=== PATIENT | male | born 1970 | race Caucasian/White ===

== ENCOUNTER → 2025-01-01 | Outpatient (CLI) | payer OTHER, SELFPAY ==
--- NOTE | 2025-01-01 06:47 | CT_ITS ---
PROCEDURE: LIMITED CHEST CT CARDIAC ONLY 01/01/2025 REASON FOR EXAM: BENIGN ESSENTIAL HYPERTENSION TECHNIQUE: CT performed for coronary artery calcification scoring. One or more dose reduction techniques were used (e.g., Automated exposure control, adjustment of the mA and/or kV according to patient size, use of iterative reconstruction technique). RADIATION DOSE SUMMARY: CTDlvol: 12.19 mGy DLP: 219.42 mGycm COMPARISON: None. CT/Limited Chest CT Cardiac Only IMPRESSION: Limited imaging of the lungs demonstrates no acute process. No pleural effusion or pneumothorax is seen in visualized areas. No adenopathy is noted. The visualized upper abdomen demonstrates no significant abnormality. Reading Location: [place] [id number]
--- OUTSIDE RECORDS SUMMARY | 2025-01-01 06:48 | XMS RPT_ITS | CCD ---
Author Organization [facility] Care Team Providers Care Oncology Research Rn Name Role Phone Ebony Prince Unavailable Mini Romero Unavailable Bahjeana, Ede A Unavailable [phone] Badfelipa, Markell Unavailable Rylee Dillon Unavailable Unavailable Unavailable Unavailable Urmila Butts Unavailable Unavailable Ebony Prince DO Unavailable [phone] Mini Romero MD Unavailable [phone] Bahadur, Ede A Unavailable Baddour, Markell Unavailable Gosia Avendano LPN Unavailable Unavailable Unavailable Unavailable Waleska Markell Unavailable Montserrat Smith MA Unavailable Unavailable Mini Romero MD Unavailable [phone] Ebony Prince Referring Unavailable Ebony Prince Attending Unavailable Ebony Prince Primary Care Unavailable Medications Completed/Discontinued Medications Medication Drug Class(es) Dates Sig (Normalized) Sig (Original) escitalopram 20 mg oral tablet (13 sources) Serotonin Reuptake Inhibitor Start: 01-25-2014 End: 04-05-2016 take 1 tablet by mouth once daily Lexapro 20 MG Oral Tablet 1 (one) Tablet qd for 0 days Quantity: 90 {Tablet} Refills: 3 Ordered: 05-Apr-2016 Carmen Whitney RN Start : 25-Jan-2014 End : 05-Apr-2016 Inactive febuxostat 40 mg oral tablet (13 sources) Xanthine Oxidase Inhibitor Start: 07-30-2014 End: 04-05-2016 take 1 tablet by mouth once daily Uloric 40 MG Oral Tablet 1 (one) Tablet daily for 0 days Quantity: 30 {Tablet} Refills: 5 Ordered: 05-Apr-2016 Carmen Whitney RN Start : 30-Jul-2014 End : 05-Apr-2016 Inactive folic acid 1 mg oral tablet (13 sources) Start: 01-26-2013 End: 04-05-2016 take 1 tablet by mouth once daily Folic Acid 1 MG Oral Tablet 1 Tablet Tablet daily for 0 days Quantity: 30 {Tablet} Refills: 6 Ordered: 05-Apr-2016 Carmen Whitney RN Start : 26-Jan-2013 End : 05-Apr-2016 Inactive lisdexamfetamine dimesylate 60 mg oral capsule (13 sources) Central Nervous System Stimulant Start: 10-11-2014 End: 04-05-2016 take 1 capsule by mouth in the morning Vyvanse 60 MG Oral Capsule 1 Capsule in am for 0 days Quantity: 30 {Capsule} Refills: 0 Ordered: 05-Apr-2016 Carmen Whitney RN Start : 11-Oct-2014 End : 05-Apr-2016 Inactive Comments: thirty Comment on above: thirty metoprolol tartrate 50 mg oral tablet (13 sources) beta-Adrenergic Melyssa Start: 03-11-2014 End: 04-05-2016 take 1 tablet by mouth twice daily Lopressor 50 MG Oral Tablet 1 Tablet Tablet bid for 0 days Quantity: 60 {Tablet} Refills: 6 Ordered: 05-Apr-2016 Carmen Whitney RN Start : 11-Mar-2014 End : 05-Apr-2016 Inactive sildenafil 100 mg oral tablet (9 sources) Phosphodiesterase 5 Inhibitor Start: 03-13-2022 Sildenafil Citrate 100 MG Oral Tablet 1 (one) Tablet 2times per week 30mins prior to sexual activity for 0 days Quantity: 8 {Tablet} Refills: 6 Ordered: 13-Mar-2022 Ebony Prince DO, DO, Kathleen Start : 13-Mar-2022 Active Start: 03-05-2022 Sildenafil Cit rate 100 MG Oral Tablet 1 (one) Tablet 2times per week 30mins prior to sexual activity for 0 days Quantity: 8 {Tablet} Refills: 6 Ordered: 05-Mar-2022 Ebony Prince DO, DO, Kathleen Start : 05-Mar-2022 Active Start: 03-03-2021 Sildenafil Cit rate 100 MG Oral Tablet 1 (one) Tablet 2times per week 30mins prior to sexual activity for 0 days Quantity: 8 {Tablet} Refills: 6 Ordered: 03-Mar-2021 Ebony Prince DO, DO, Kathleen Start : 03-Mar-2021 Active Start: 09-05-2020 Sildenafil Cit rate 100 MG Oral Tablet 1 (one) Tablet 2times per week 30mins prior to sexual activity for 0 days Quantity: 8 {Tablet} Refills: 4 Ordered: 05-Sep-2020 Ebony Prince DO, DO, Kathleen Start : 05-Sep-2020 Active Start: 09-01-2020 Sildenafil Cit rate 100 MG Oral Tablet 1 (one) Tablet 2times per week 30mins prior to sexual activity for 0 days Quantity: 8 {Tablet} Refills: 4 Ordered: 01-Sep-2020 Ebony Prince DO, DO, Kathleen Start : 01-Sep-2020 Active Start: 05-05-2020 Sildenafil Cit rate 100 MG Oral Tablet 1 (one) Tablet 2times per week 30mins prior to sexual activity for 0 days Quantity: 8 {Tablet} Refills: 2 Ordered: 05-May-2020 Urmila Butts LPN Start : 05-May-2020 Active divalproex sodium 500 mg delayed release oral tablet (13 sources) Mood Stabilizer, Anti-epileptic Agent Start: 07-30-2014 End: 04-05-2016 take 1 tablet by mouth in the morning, then take 1 tablet by mouth at lunch, then take 2 tablets by mouth at bedtime Depakote 500 MG Oral Tablet Delayed Release uad Tablet DR 1 in am 1 at lunch 2 hs for 0 days Quantity: 120 {Tablet} Refills: 6 Ordered: 05-Apr-2016 Carmen Whitney RN Start : 30-Jul-2014 End : 05-Apr-2016 Inactive NEGATED: Highlighted row has not occurred!drug or medication (8 sources) No Known Historical Medications NEGATED: Highlighted row has not occurred!No Known Historical Medications (3 sources) No Known Historical Medications Problems Active Problems Problem Classification Problem Date Documented Date Episodic/Chronic Administrative/social admission (7 sources) Patient encounter status; Translations: [Nutritional counseling] 09-01-2020 Episodic Attention-deficit conduct and disruptive behavior disorders (20 sources) Attention deficit hyperactivity disorder, predominantly inattentive type; Translations: [Attention deficit disorder] 04-15-2020 Chronic Comment on above: vyvanse help bu trou ble some sleeing and not notice help as much in am so will do 60 mg once a day.r/t to [facility] Dr. Juarez Blindness and vision defects (15 sources) One eye: profound vision impairment; other eye: vision not specified; Translations: [IMPAIRMENT, ONE EYE PROFOUND, OTHER NOS] 04-15-2020 Chronic Comment on above: sequele from cvarigh t eye r/t CVA Diabetes mellitus without complication (20 sources) Impaired fasting glucose; Translations: [Impaired fasting glycaemia] 04-15-2020 Episodic Disorders of lipid metabolism (20 sources) Mixed hyperlipidemia; Translations: [Hypercholesterolemia] 04-15-2020 Chronic Comment on above: uncontrolled Epilepsy; convulsions (20 sources) Epilepsy, unspecified, without mention of intractable epilepsy; 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 Lowry [facility] post [facility]va/ h/o concus sions from football- and brain injury on imaging- no sz for 15yrs - last sz 2004 -- started in 2002 Epilepsy; convulsions (20 sources) Epilepsy; convulsions Essential hypertension (20 sources) Benign essential hypertension; Translations: [Benign Essential Hypertension] Onset: 5 04-15-2020 Chronic Gout and other crystal arthropathies (20 sources) Gout, unspecified; Translations: [Gout] 04-15-2020 Chronic Comment on above: had bad gout in last year some joit aches uric acid high 9 will lower and see if feel better STABLE Headache; including migraine (13 sources) Headache; Translations: [Headache] 04-15-2020 Episodic Miscellaneous mental health disorders (20 sources) Other signs and symptoms involving emotional state; Translations: [Restless] 04-15-2020 Episodic Comment on above: since stroke none st op movement in legs. does toss through night. had sleep study donesince stroke 2006 and okay. worse need to increae vyvanse Mood disorders (20 sources) Dysthymia; Translations: [Dysthymic] 04-15-2020 Chronic Comment on above: neurological psyche [facility] Dr. Juarez Mood disorders (20 sources) Mood disorders Other and ill-defined cerebrovascular disease (20 sources) Cerebrovascular disease; Translations: [Cerebrovascular disease, unspecified] 04-15-2020 Chronic Comment on above: 2004, ever since the n developed epilepsy, Dr. Lowry [facility]. also see ade patel past 2005, ever since the n developed epilepsy, Dr. Lowry [facility]. also see ade patel pasth/o AVM that causes stroke at such young age Other and ill-defined cerebrovascular disease (15 sources) Other ill-defined cerebrovascular disease; Translations: [DISEASE, CEREBROVASCULAR NEC] 04-15-2020 Chronic Comment on above: narrowing of arterie s through cerebral angiogram Other circulatory disease (17 sources) Elevated blood-pressure reading without diagnosis of hypertension; Translations: [Elevated blood-pressure reading without diagnosis of hypertension] Resolved: 3 02-08-2015 Episodic Comment on above: up again Other circulatory disease (20 sources) History of cerebrovascular accident; Translations: [History of CVA (cerebrovascular accident)] 04-15-2020 Episodic Other ear and sense organ disorders (13 sources) Conductive hearing loss, unspecified; Translations: [LOSS, CONDUCTIVE HEARING NOS] 04-15-2020 Chronic Comment on above: r/t CVA Other liver diseases (20 sources) Elevated liver enzymes level; Translations: [Elevated liver enzymes] 04-15-2020 Episodic Other male genital disorders (20 sources) Impotence; Translations: [Male erectile dysfunction, unspecified] 05-05-2020 Chronic Comment on above: finding out cost of ca++ score to do for screening with early age ED Other nervous system disorders (17 sources) H/O: brain disorder; Translations: [History of epilepsy] 04-15-2020 Episodic Other nutritional; endocrine; and metabolic disorders (20 sources) Obesity; Translations: [Obesity] 04-15-2020 Chronic Comment on above: again talk about tammie ambrocio and diet. Other nutritional; endocrine; and metabolic disorders (20 sources) Body mass index 30+ - obesity; Translations: [BMI 34.0-34.9,adult] 04-15-2020 Chronic Other screening for suspected conditions (not mental disorders or infectious disease) (20 sources) Electrocardiogram abnormal; Translations: [Abnormal EKG] 04-15-2020 Episodic Residual codes; unclassified (20 sources) Sleep disorder; Translations: [Sleep disorder] 04-15-2020 Episodic Comment on above: take vyvanse in am a nd 12 noon. drink caffiene through day until 5 pm will try to cut back to 2 servings befroe lunch. melatonoin and benadryl. Residual codes; unclassified (20 sources) FH: Cardiovascular disease; Translations: [Family history of heart disease in female family member before age 65] 04-15-2020 Episodic Residual codes; unclassified (19 sources) Non-smoker; Translations: [Non-smoker] 09-01-2020 Episodic Unclassified (20 sources) Elevated liver enzymes (790.4) Unclassified (20 sources) Hypercholesteremia (272.0) Unclassified (20 sources) CVA (437.9) Unclassified (20 sources) Unclassified (20 sources) Attention deficit disorder (314.00) Unclassified (20 sources) Restless (799.29) Unclassified (20 sources) Elevated Blood Pressure without diagnosis of Hypertension (796.2) Unclassified (20 sources) Family history of heart disease in female family member before age 65 Unclassified (20 sources) Non-smoker; Translations: [Non-smoker] 04-15-2020 Unclassified (20 sources) BMI 35.0-35.9,adult Unclassified (11 sources) BMI 34.0-34.9,adult Unclassified (11 sources) DISEASE, CEREBROVASCULAR NEC Unclassified (11 sources) Shingles (053.9) Unclassified (11 sources) Family history of heart disease in female family member before age 65 (V17.49) Unclassified (11 sources) Screening status; Translations: [Encounter for screening for malignant neoplasm of prostate (Renamed from Screening for prostate cancer)] 05-05-2020 Unclassified (18 sources) Depression/Anxiety (300.4) Viral infection (15 sources) Herpes zoster; Translations: [Shingles] Resolved: 3 03-22-2015 Episodic Comment on above: 03-17 on left flank Past or Other Problems Problem Classification Problem Date Documented Da te Episodic/Chronic Unclassified (20 sources) Abnormal EKG (794.31) Unclassified (11 sources) BMI 37.0-37.9, adult Unclassified (11 sources) IMPAIRMENT, ONE EYE PROFOUND, OTHER NOS (369.67) Unclassified (5 sources) Patient encounter status; Translations: [Nutritional counseling] 05-13-2020 Results Test Name Value Interpretation Reference Range Facility CBC W/AUTO DIFF WBC (50620)O rdered By: 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 on 03-03-2021 Basophils (Bld) [#/Vol] 0.0 10*3/uL Normal 0.0-0.2 [facility]; [facility] Work Phone: Comment on above: PATIENT WAS FASTINGP ERFORMED BY: [employer] Pudfnx3118 [facility] [id number] BY: [employer] [id number] Basophils/100 WBC (Bld) 1 % Normal [facility]; [facility] Work Phone: Comment on above: PATIENT WAS FASTINGP ERFORMED BY: [employer]6370 [facility] [id number] BY: [employer] [id number] Eosinophils (Bld) [#/Vol] 0.2 10*3/uL Normal 0.0-0.4 [facility]; [facility] Work Phone: Comment on above: PATIENT WAS FASTINGP ERFORMED BY: [employer]6370 [facility] [id number] BY: [employer] [id number] Eosinophils/100 WBC (Bld) 3 % Normal [facility]; [facility] Work Phone: Comment on above: PATIENT WAS FASTINGP ERFORMED BY: [employer] Services[employer]6370 [facility] [id number] BY: [address] [id number] Erythrocyte distribution width (RBC) [Ratio] 12.8 % Normal 11.6-15.4 [facility]; [facility] Work Phone: Comment on above: PATIENT WAS FASTINGP ERFORMED BY: [facility] Cbpojp5633 [facility] [id number] BY: [address] [id number] Hematocrit (Bld) [Volume fraction] 48.8 % Normal 37.5-51.0 [facility]; [facility] Work Phone: Comment on above: PATIENT WAS FASTINGP ERFORMED BY: [facility] Vsxlwu6711 [facility] [id number] BY: [address] [id number] Hemoglobin (Bld) [Mass/Vol] 16.7 g/dL Normal 13.0-17.7 [facility]; [facility] Work Phone: Comment on above: PATIENT WAS FASTINGP ERFORMED BY: [place]Co[place] 4563170 [facility] [id number] BY: [facility] [id number] Immature granulocytes (Bld) [#/Vol] 0.0 10*3/uL Normal 0.0-0.1 [facility]; [facility] Work Phone: Comment on above: PATIENT WAS FASTINGP ERFORMED BY: [facility] Hdweel3323 [facility] [id number] BY: [facility] [id number] Immature granulocytes/100 WBC (Bld) 0 % Normal [facility]; [facility] Work Phone: Comment on above: PATIENT WAS FASTINGP ERFORMED BY: [facility] Zgdrsf0126 [facility] [id number] BY: [facility] [id number] Lymphocytes (Bld) [#/Vol] 1.9 10*3/uL Normal 0.7-3.1 [facility]; [facility] Work Phone: Comment on above: PATIENT WAS FASTINGP ERFORMED BY: [facility] Tccgor9000 [facility] [id number] BY: [address] [id number] Lymphocytes/100 WBC (Bld) 32 % Normal [facility]; [facility] Work Phone: Comment on above: PATIENT WAS FASTINGP ERFORMED BY: [facility] Waeaah1013 [facility] [id number] BY: [address] [id number] MCH (RBC) [Entitic mass] 30.9 pg Normal 26.6-33.0 [facility]; [facility] Work Phone: Comment on above: PATIENT WAS FASTINGP ERFORMED BY: LabCoCommunity Medical CenterWepjqt7146 [facility] [id number] BY: [facility] [id number] MCHC (RBC) [Mass/Vol] 34.2 g/dL Normal 31.5-35.7 [facility]; [facility] Work Phone: Comment on above: PATIENT WAS FASTINGP ERFORMED BY: [facility] Qilfbf8662 [facility] [id number] BY: Lab[address] [id number] MCV (RBC) [Entitic vol] 90 fL Normal 79-97 [facility]; [facility] Work Phone: Comment on above: PATIENT WAS FASTINGP ERFORMED BY: [facility] Itaczw6222 [facility] [id number] BY: [address] [id number] Monocytes (Bld) [#/Vol] 0.5 10*3/uL Normal 0.1-0.9 [facility]; [facility] Work Phone: Comment on above: PATIENT WAS FASTINGP ERFORMED BY: CB [facility] Edcpen3432 [address] [facility] [id number] BY: [facility] [address] [id number] Monocytes/100 WBC (Bld) 8 % Normal [facility]; [facility] Work Phone: Comment on above: PATIENT WAS FASTINGP ERFORMED BY: CB [facility] Kntixq3264 [address] [facility] [id number] BY: [facility] [address] [id number] Neutrophils (Bld) [#/Vol] 3.3 10*3/uL Normal 1.4-7.0 [facility]; [facility] Work Phone: Comment on above: PATIENT WAS FASTINGP ERFORMED BY: CB [facility] Rbrsic9145 [address] [facility] [id number] BY: [facility] [id number] Neutrophils/100 WBC (Bld) 56 % Normal [facility]; [facility] Work Phone: Comment on above: PATIENT WAS FASTINGP ERFORMED BY: CB [facility] Ujdjaq7492 [address] [facility] [id number] BY: [facility] [address] [id number] Platelets (Bld) [#/Vol] 232 10*3/uL Normal 150-450 [facility]; [facility] Work Phone: Comment on above: PATIENT WAS FASTINGP ERFORMED BY: CB [facility] Wawilp8288 [address] [facility] [id number] BY: [facility] [id number] RBC (Bld) [#/Vol] 5.40 10*6/uL Normal 4.14-5.80 [facility]; [facility] Work Phone: Comment on above: PATIENT WAS FASTINGP ERFORMED BY: DONATO [facility] Fnxzze6886 [address] [facility] [place] [id number] BY: LabCoJess[place] [address] [facility] [id number] WBC (Bld) [#/Vol] 5.9 10*3/uL Normal 3.4-10.8 [facility]; [facility] Work Phone: Comment on above: PATIENT WAS FASTINGP ERFORMED BY: CB [facility] Juvpbd3075 [address] [facility] [id number] BY: [facility] [id number] HGB A1C ([id number])Ordered By: S [employer] Tool Maker on 03-03-2021 HbA1c (Bld) [Mass fraction] 5.3 % Normal 4.8-5.6 [facility]; [facility] Work Phone: Comment on above: . Prediabetes: 5.7 - 6.4 Diabetes: >6.4 Glycemic control for adults with diabetes: <7.0 PATIENT WAS FASTINGP ERFORMED BY: DONATO [facility] Qmynls4925 [address] [facility] [id number] BY: KERLINE [facility] [address] [id number] LIPID PANEL ([id number])Ordered B y: 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 on 03-03-2021 Cholesterol [Mass/Vol] 208 mg/dL Abnormal 100-199 [facility] Internal [facility]; [facility] Work Phone: Comment on above: PATIENT WAS FASTINGP ERFORMED BY: DONATO [facility] Qqzaky7389 [facility] [id number] BY: LabWabi [employer]i [employer] [id number] Cholesterol in HDL [Mass/Vol] 39 mg/dL Abnormal [facility]; [facility] Work Phone: Comment on above: PATIENT WAS FASTINGP ERFORMED BY: CB [facility] Jbflek0351 [facility] [id number] BY: [employer] [id number] Triglyceride [Mass/Vol] 131 mg/dL Normal 0-149 [facility]; [facility] Work Phone: Comment on above: PATIENT WAS FASTINGP ERFORMED BY: [facility] Npxtxs8301 [facility] [id number] BY: [facility] [id number] LIPID PANEL (26150) 24 mg/dL Normal 5-40 Compr ensive [facility]; [facility] Work Phone: Comment on above: PATIENT WAS FASTINGP ERFORMED BY: CB [facility] Cgmjef0245 [facility] [id number] BY: LabW[employer]i [employer] [id number] LIPID PANEL (21944) 145 mg/dL Abnormal 0-99 [facility]; [facility] Work Phone: Comment on above: PATIENT WAS FASTINGP ERFORMED BY: [facility] Wqmmyq6703 [facility] [id number] BY: LabWabi Sabi [employer] [id number] LIPID PANEL (96256) 3.7 {ratio} Abnormal 0.0-3.6 [facility]; [facility] Work Phone: Comment on above: LDL/HDL Ratio Men Wo men 1/2 Avg.Risk 1.0 1.5 Avg.Risk 3.6 3.2 2X Avg.Risk 6.2 5.0 3X Avg.Risk 8.0 6.1 PATIENT WAS FASTINGP ERFORMED BY: CB [facility] Uhtzgb6489 [facility] [id number] BY: Lab[address] [id number] METABOLIC PANEL, COMPREHENSI VE ([id number])Ordered By: 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 on 03-03-2021 Albumin [Mass/Vol] 4.4 g/dL Normal 4.0-5.0 Compre hensive [facility]; [facility] Work Phone: Comment on above: PATIENT WAS FASTINGP ERFORMED BY: CB [facility] Iivnob5126 [place] RoadDublin [place] [id number] BY: [facility] [id number] Albumin/Globulin [Mass ratio] 1.9 {ratio} Normal 1.2-2.2 [facility]; [facility] Work Phone: Comment on above: PATIENT WAS FASTINGP ERFORMED BY: CB [facility] Uiehkv8575 [facility]Psych[facility] [id number] BY: [facility] [id number] ALP [Catalytic activity/Vol] 65 U/L Normal 44-121 [facility]; [facility] Work Phone: Comment on above: Please note refere nce interval change PATIENT WAS FASTINGP ERFORMED BY: CB [facility] Zltrde2963 [address] RoadCritical Access Hospitalin [place] [id number] BY: [facility] [id number] ALT [Catalytic activity/Vol] 21 U/L Normal 0-44 [facility]; [facility] Work Phone: Comment on above: PATIENT WAS FASTINGP ERFORMED BY: CB [facility] Uzwpeo6081 [address] [facility] [id number] BY: [facility] [id number] AST [Catalytic activity/Vol] 17 U/L Normal 0-40 [facility]; [facility] Work Phone: Comment on above: PATIENT WAS FASTINGP ERFORMED BY: CB [facility] Pxbjxf7209 [address]ado RoadDublin [place] [id number] BY: Lab[address] [id number] Bilirubin [Mass/Vol] 0.5 mg/dL Normal 0.0-1.2 Comp rehensive [facility]; [facility] Work Phone: Comment on above: PATIENT WAS FASTINGP ERFORMED BY: DONATO [facility] Arhpzd0114 [address] [facility] [id number] BY: [facility] [id number] Calcium [Mass/Vol] 9.6 mg/dL Normal 8.7-10.2 [facility]; [facility] Work Phone: Comment on above: PATIENT WAS FASTINGP ERFORMED BY: DONATO [facility] Ivfkmg0738 [facility] [id number] BY: [facility] [address] [id number] Chloride [Moles/Vol] 104 mmol/L Normal 96-106 [facility] rehensive Internal Medicine; [facility] Work Phone: Comment on above: PATIENT WAS FASTINGP ERFORMED BY: DONATO [facility] Bpjsfn1198 [facility] [id number] BY: [facility] [address] [id number] CO2 [Moles/Vol] 21 mmol/L Normal 20-[address] [facility] Internal [facility]; [facility] Work Phone: Comment on above: PATIENT WAS FASTINGP ERFORMED BY: CB [facility] Cbofph9877 [facility] [id number] BY: [facility] [address] [id number] Creatinine [Mass/Vol] 0.91 mg/dL Normal 0.76-1.27 [facility] prehensive Internal Medicine; [facility] Work Phone: Comment on above: PATIENT WAS FASTINGP ERFORMED BY: CB [facility] Yrogrb0070 [facility] [id number] BY: [facility] [id number] GFR/1.73 sq M.predicted among blacks CKD-EPI (S/P/Bld) [Vol rate/Area] 114 mL/min/1.73 Normal [facility]; [facility] Work Phone: Comment on above: In accordance with recommendations from the NKF-ASN Task force, [facility] is in the process of updating its eGFR calculation to the 2020 CKD-EPI creatinine equation that estimates kidney function without a race variable. PATIENT WAS FASTINGP ERFORMED BY: [address] [id number] BY: [address] [id number] GFR/1.73 sq M.predicted among non-blacks CKD-EPI (S/P/Bld) [Vol rate/Area] 99 mL/min/1.73 Normal [facility]; [facility] Work Phone: Comment on above: PATIENT WAS FASTINGP ERFORMED BY: [address] [id number] BY: [address] [id number] Globulin (S) [Mass/Vol] 2.3 g/dL Normal 1.5-4.5 [facility]; [facility] Work Phone: Comment on above: PATIENT WAS FASTINGP ERFORMED BY: [address] [id number] BY: [address] [id number] Glucose [Mass/Vol] 94 mg/dL Normal 65-99 [facility]; [facility] Work Phone: Comment on above: PATIENT WAS FASTINGP ERFORMED BY: [address] [id number] BY: [address] [id number] Potassium [Moles/Vol] 4.5 mmol/L Normal 3.5-5.2 [facility]; [facility] Work Phone: Comment on above: PATIENT WAS FASTINGP ERFORMED BY: CB [facility] Ixfxak4053 [address] [facility] [id number] BY: [facility] [address] [id number] Protein [Mass/Vol] 6.7 g/dL Normal 6.0-8.5 [facility]; [facility] Work Phone: Comment on above: PATIENT WAS FASTINGP ERFORMED BY: CB [facility] Dufjkt1168 [address] [facility] [id number] BY: [facility] [address] [id number] Sodium [Moles/Vol] 139 mmol/L Normal 134-144 [facility]; [facility] Work Phone: Comment on above: PATIENT WAS FASTINGP ERFORMED BY: DONATO [facility] Hdotap8235 [address] [facility] [id number] BY: [facility] [id number] Urea nitrogen [Mass/Vol] 15 mg/dL Normal 6-24 [facility]; [facility] Work Phone: Comment on above: PATIENT WAS FASTINGP ERFORMED BY: DONATO [facility] Ttmvnf3231 [facility] [id number] BY: [facility] [address] [id number] Urea nitrogen/Creatinine [Mass ratio] 16 mg/mg Normal 9-20 [facility]; [facility] Work Phone: Comment on above: PATIENT WAS FASTINGP ERFORMED BY: CB [facility] Wmxsnh8267 [address] [facility] [id number] BY: Lab[address] [id number] MICROALBUMINOrdered By: Syst em Carbide Tool Maker on 03-03-2021 Albumin DL <= 20 mg/L (U) [Mass/Vol] 3.0 ug/mL Normal [facility]; [facility] Work Phone: Comment on above: PATIENT WAS FASTINGP ERFORMED BY: Bill [employer]cher Ierpya9299 [facility] [id number] BY: [employer] [id number] Albumin/Creatinine (U) [Mass ratio] 3 {mg/g_creat} Normal 0-29 [facility]; [facility] Work Phone: Comment on above: Normal: 0 - 29 Moder ately increased: 30 - 300 Severely increased: >300 PATIENT WAS FASTINGP ERFORMED BY: Thompson [employer]ospacerp Itqmbh4330 [facility] [id number] BY: [employer] [id number] Creatinine (U) [Mass/Vol] 117.6 mg/dL Normal [facility]; [facility] Work Phone: Comment on above: PATIENT WAS FASTINGP ERFORMED BY: ZEturf LabmotionID technologies Oohzjw8724 [facility] [id number] BY: [employer] [id number] TESTOSTERONE FREE (86247)Ord ered By: 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 on 03-03-2021 Testosterone Free [Mass/Vol] 9.2 pg/mL Normal 6.8-21.5 [facility]; [facility] Work Phone: Comment on above: PATIENT WAS FASTINGP ERFORMED BY: [employer] Msvxhm2084 [facility] [id number] BY: [employer] [id number] TESTOSTERONE TOTAL (46219)Or dered By: 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 on 03-03-2021 Testosterone [Mass/Vol] 376 ng/dL Normal 264-916 [facility]; [facility] Work Phone: Comment on above: Adult male reference interval is based on a population ofhealthy nonobese males (BMI <30) between 19 and 39 years old.angela [place].al. JCEM 2017,102;8891-0314. PMID: [id number]. PATIENT WAS FASTINGP ERFORMED BY: CB [facility] Nvdian4718 Mal[address] RoadDublin [place] [id number] BY: [employer] [id number] TSH (25924)Ordered By: [employer] Carbide Tool Maker on 03-03-2021 TSH Qn 1.650 {uIU/mL} Normal 0.450-4.500 Comprehen sive Internal Medicine; [facility] Work Phone: Comment on above: PATIENT WAS FASTINGP ERFORMED BY: DONATO [facility] Zxzrtg3169 Maldonado RoadPsychiatric hospital [id number] BY: [employer] [id number] URINALYSIS, W/ MICRO (74766) Ordered By: 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 on 03-03-2021 Appearance (U) Clear Normal Comprehens harshil Internal Medicine; [facility] Work Phone: Comment on above: PATIENT WAS FASTINGP ERFORMED BY: CB [facility] Depmyk1416 Mal[address] RoadDublin [place] [id number] BY: [employer] [id number] Bilirubin Ql (U) Negative Normal Comprehe nsive Internal Medicine; [facility] Work Phone: Comment on above: PATIENT WAS FASTINGP ERFORMED BY: CB [facility] Nkjhmg6311 Maldonado RoadPsychiatric hospital [id number] BY: Lab[address] [id number] Color (U) Yellow Normal [facility]; [facility] Work Phone: Comment on above: PATIENT WAS FASTINGP ERFORMED BY: CB [facility] Wqlnyo7360 Maldonado RoadDublin [place] [id number] BY: [address] [id number] Glucose Ql (U) Negative Normal Comprehens harshil [facility]; [facility] Work Phone: Comment on above: PATIENT WAS FASTINGP ERFORMED BY: [facility] Mdepoh4804 Maldonado RoadDublin [place] [id number] BY: [address] [id number] Hemoglobin Ql (U) Negative Normal Compreh ensive Internal Medicine; [facility] Work Phone: Comment on above: PATIENT WAS FASTINGP ERFORMED BY: CB [facility] Gxfipl1098 [address] RoadDublin [place] [id number] BY: Lab[address] [id number] Ketones Ql (U) Negative Normal Comprehens harshil [facility]; [facility] Work Phone: Comment on above: PATIENT WAS FASTINGP ERFORMED BY: CB [facility] Ifjnqp1588 [address] RoadDublin [place] [id number] BY: [address] [id number] Leukocyte esterase Test strip Ql (U) Negative Normal [facility]; [facility] Work Phone: Comment on above: PATIENT WAS FASTINGP ERFORMED BY: CB [facility] Ojxkne9952 [address] RoadDublin [place] [id number] BY: [address] [id number] Microscopic observation LM Nom (Urine sed) MICRON Normal [facility]; [facility] Work Phone: Comment on above: Microscopic follows if indicated. PATIENT WAS FASTINGP ERFORMED BY: CB [facility] Lmvwel6677 [address] RoadDublin [place] [id number] BY: [address] [id number] Microscopic observation LM Nom (Urine sed) See below: Normal [facility]; [facility] Work Phone: Comment on above: Microscopic was anna cated and was performed. PATIENT WAS FASTINGP ERFORMED BY: CB [facility] Qftgcy3898 [address] RoadDublin [place] [id number] BY: [facility] [id number] Nitrite Ql (U) Negative Normal Comprehens harshil [facility] Medicine; [facility] Work Phone: Comment on above: PATIENT WAS FASTINGP ERFORMED BY: [facility] Mdqatt7288 [facility] [id number] BY: [address] [id number] pH (U) 6.0 [pH] Normal 5.0-7.5 [facility]; [facility] Work Phone: Comment on above: PATIENT WAS FASTINGP ERFORMED BY: LabWabi Sabi EcofashionconceptGary [place] 4563170 [facility] [id number] BY: [address] [id number] Protein Ql (U) Negative Normal Comprehens harshil [facility]; [facility] Work Phone: Comment on above: PATIENT WAS FASTINGP ERFORMED BY: LabWabi Sabi [employer]ofashionconcept Sywvkx9663 [facility] [id number] BY: [address] [id number] Specific gravity (U) [Rel density] 1.019 1 Normal 1.005-1.030 [facility]; [facility] Work Phone: Comment on above: PATIENT WAS FASTINGP ERFORMED BY: LabFre[facility] Kfmocl1265 [facility] [id number] BY: [employer] [id number] Urobilinogen (U) [Mass/Vol] 0.2 mg/dL Normal 0.2-1.0 [facility]; [facility] Work Phone: Comment on above: PATIENT WAS FASTINGP ERFORMED BY: LabWabi Sabi Ecofashionconcept Bnfhcu6637 [facility] [id number] BY: [address] [id number] HGB A1C (20746)Ordered By: S ystem Carbide Tool Maker on 09-01-2020 HbA1c (Bld) [Mass fraction] 5.2 % Normal 4.8-5.6 [facility]; [facility] Work Phone: Comment on above: . Prediabetes: 5.7 - 6.4 Diabetes: >6.4 Glycemic control for adults with diabetes: <7.0 Test(s) 190955-GAE-X ; 307853-NNQ-D; 455085-Qadedvuedxubr; 213542-Ejrvawlxjvq, Total; 601057-HHU-A (Total); 547745-Yxlwn LDL-P; 682932-TSB Size; 418450-AO-RO Scorewas developed and its performance characteristics determinedby [employer]. It has not been cleared or approved by the Foodand Drug Administration.PATIENT WAS FASTINGPERFORMED BY: [facility] [id number] BY: [employer]ube[employer]70 [facility] LabsPsychiatric hospital [id number] NMR Profile (45404)Ordered B y: 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 on 09-01-2020 Cholesterol [Mass/Vol] 208 mg/dL Abnormal 100-199 [facility]; [facility] Work Phone: Comment on above: Test(s) 730203-QCF-F ; 145698-NUL-M; 124811-Suijykfybdwpy; 196165-Xpllgedkswg, Total; 506441-BUD-I (Total); 905386-Rxhdh LDL-P; 541549-NBT Size; 702699-TR-SQ Scorewas developed and its performance characteristics determinedby [employer]. It has not been cleared or approved by the Foodand Drug Administration.PATIENT WAS FASTINGPERFORMED BY: Ecopolton1447 [facility] [id number] BY: [employer]ube[employer]70 [facility] LabsPsychiatric hospital [id number] Lipoprotein.alpha [Moles/Vol] 26.8 umol/L Abnormal [facility]; [facility] Work Phone: Comment on above: Test(s) 305374-TAX-B ; 484159-CQO-T; 135647-Nklhvlytufnhs; 528351-Ivuzfyhqkwi, Total; 020208-WFA-V (Total); 177438-Vizlk LDL-P; 494355-WWB Size; 892013-YP-WU Scorewas developed and its performance characteristics determinedby LabcoShelf[employer]. It has not been cleared or approved by the Foodand Drug Administration.PATIENT WAS FASTINGPERFORMED BY: BN [facility] Hgxtsyibua3241 [facility] [id number] BY: CB [facility] Adnqzx0775 [facility] [id number] Lipoprotein.beta.subpa rticle [Entitic length] 20.8 nm Normal [facility]; [facility] Work Phone: Comment on above: INTERPRETATIVE INFORMATION PARTICLE CONCENTRATION AND SIZE <--Lower CVD Risk Higher CVD Risk--> LDL AND HDL PARTICLES Percentile in Reference Population HDL-P (total) High 75th 50th 25th Low >34.9 34.9 30.5 26.7 <26.7 . Small LDL-P Low 25th 50th 75th High <117 117 527 839 >839 . LDL Size <-Large (Pattern A)-> <-Small (Pattern B)-> 23.0 20.6 20.5 19.0 Small LDL-P and LDL Size are associated with CVD risk, but not afterLDL-P is taken into account. Test(s) 236218-AKK-Q ; 685902-JTF-F; 314220-Oqdfbanmeevsf; 593060-Pikxmlzqfvr, Total; 976123-ZUJ-S (Total); 067053-Cftlv LDL-P; 636165-HSZ Size; 764385-BF-PE Scorewas developed and its performance characteristics determinedby [employer]. It has not been cleared or approved by the Foodand Drug Administration.PATIENT WAS FASTINGPERFORMED BY: [employer] [address] [id number] BY: [employer] Gzhtsp4789 [facility] LabsPsychiatric hospital [id number] Lipoprotein.beta.subpa rticle [Moles/Vol] 1467 nmol/L Abnormal [facility]; [facility] Work Phone: Comment on above: Low < 1000 Moderate 1000 - 1299 Borderline-High 1300 - 1599 High 1600 - 2000 Very High > 2000 Test(s) 980267-QHH-I ; 513988-YMX-I; 830711-Woacxsrkstgzk; 998176-Kaxjoippnhv, Total; 468019-RTH-L (Total); 910376-Nxuls LDL-P; 621682-COZ Size; 724946-KP-KQ Scorewas developed and its performance characteristics determinedby [employer]. It has not been cleared or approved by the Foodand Drug Administration.PATIENT WAS FASTINGPERFORMED BY: [facility] [address] [id number] BY: [employer] Xhykvt4284 [facility] [id number] Lipoprotein.beta.subpa rticle.small [Moles/Vol] 396 nmol/L Normal [facility]; [facility] Work Phone: Comment on above: Test(s) 271592-QWQ-O ; 714795-PSG-C; 372931-Psguovyfvvlsp; 124317-Fbtalxrsswn, Total; 336126-AOV-V (Total); 748232-Xwiof LDL-P; 281982-DHT Size; 462386-XW-QM Scorewas developed and its performance characteristics determinedby [employer]. It has not been cleared or approved by the Foodand Drug Administration.PATIENT WAS FASTINGPERFORMED BY: Kum[employer] [address] [id number] BY: [employer] [address] [place] [address] [id number] Triglyceride [Mass/Vol] 156 mg/dL Abnormal 0-149 [facility]; [facility] Work Phone: Comment on above: Test(s) 157819-YEQ-K ; 110863-IFU-E; 090205-Uobysilmfzfjt; 343987-Jlexatwqajx, Total; 915027-YHS-U (Total); 754032-Uxizk LDL-P; 804640-IKS Size; 140044-FD-DE Scorewas developed and its performance characteristics determinedby [employer]. It has not been cleared or approved by the Foodand Drug Administration.PATIENT WAS FASTINGPERFORMED BY: Kum[employer] [address] [id number] BY: [employer] Keojfx3840 [facility] [id number] NMR Profile (34590) 143 mg/dL Abnormal 0-99 [facility]; [facility] Work Phone: Comment on above: . Optimal < 100 Abov e optimal 100 - 129 Borderline 130 - 159 High 160 - 189 Very high > 189 . Test(s) 386199-UED-O ; 683623-YZX-C; 923190-Jmaznbtrkdkpu; 072401-Wedddfzfbhi, Total; 546947-XGR-U (Total); 361031-Hrgel LDL-P; 560410-FVO Size; 582819-PI-TZ Scorewas developed and its performance characteristics determinedby [employer]. It has not been cleared or approved by the Foodand Drug Administration.PATIENT WAS FASTINGPERFORMED BY: Kum[employer] [address] [id number] BY: [employer] Waqjob3093 [facility] [id number] NMR Profile (45273) 37 mg/dL Abnormal [facility]; [facility] Work Phone: Comment on above: Test(s) 740065-ZBD-O ; 913072-SXC-A; 838371-Agiqvvdhiveuk; 048027-Ftrhvmqajcn, Total; 465864-VAW-T (Total); 154697-Ydzvf LDL-P; 160790-EVQ Size; 086541-UW-FL Scorewas developed and its performance characteristics determinedby [employer]. It has not been cleared or approved by the Foodand Drug Administration.PATIENT WAS FASTINGPERFORMED BY: [employer] [id number] BY: MediProPharmaGary Ville 4563170 [facility] [id number] CBC with auto diff (02834)Or dered By: 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 on 05-05-2020 Basophils (Bld) [#/Vol] 0.0 {x10E3/uL} Normal 0.0-0.2 [facility]; [facility] Work Phone: Comment on above: Test(s) 664871-DFO-O ; 830348-CBY-W; 229096-Qgugyxqqstbwb; 293078-Wqnkxmjznfc, Total; 377605-RVX-X (Total); 446239-Pnldp LDL-P; 267802-EBV Size; 774005-GF-PU Scorewas developed and its performance characteristics determinedby [employer]. It has not been cleared or approved by the Foodand Drug Administration.PATIENT WAS FASTINGPERFORMED BY: [employer] [address] [id number] BY: MediProPharmaCommunity Medical CenterFoczov5513 [facility] [id number] Basophils (Bld) [#/Vol] 0.0 10*3/uL Normal 0.0-0.2 [facility]; [facility] Work Phone: Comment on above: Test(s) 004013-GAB-M ; 077758-JFA-W; 352458-Dtxoekphmrlba; 237477-Npvqhaweiiz, Total; 390827-FTY-X (Total); 271844-Tvgnc LDL-P; 736174-IPI Size; 163699-BH-UX Scorewas developed and its performance characteristics determinedby [employer]. It has not been cleared or approved by the Foodand Drug Administration.PATIENT WAS FASTINGPERFORMED BY: [employer] [address] [id number] BY: TopTechPhoto6370 [facility] [id number] Basophils/100 WBC (Bld) 0 % Normal [facility]; [facility] Work Phone: Comment on above: Test(s) 617354-GHB-N ; 715453-JVY-F; 991021-Dikuepssquroh; 177575-Noccxipyadt, Total; 786540-YCV-S (Total); 482800-Ipjdg LDL-P; 897928-KHP Size; 804514-AT-TV Scorewas developed and its performance characteristics determinedby [employer]. It has not been cleared or approved by the Foodand Drug Administration.PATIENT WAS FASTINGPERFORMED BY: Kumo [address] [id number] BY: [employer]ubeacon70 [facility]adoH[facility] [id number] Eosinophils (Bld) [#/Vol] 0.2 {x10E3/uL} Normal 0.0-0.4 [facility]; [facility] Work Phone: Comment on above: Test(s) 582081-ZBU-C ; 231801-UWM-P; 889328-Ljzywgrspeuke; 485328-Qctgsledqjn, Total; 474033-FWM-G (Total); 459563-Ejpeb LDL-P; 684765-BXX Size; 942366-ZZ-FY Scorewas developed and its performance characteristics determinedby [employer]. It has not been cleared or approved by the Foodand Drug Administration.PATIENT WAS FASTINGPERFORMED BY: [employer] [id number] BY: Bill [employer]cher Qevqrr7820 [facility] [id number] Eosinophils (Bld) [#/Vol] 0.2 10*3/uL Normal 0.0-0.4 [facility]; [facility] Work Phone: Comment on above: Test(s) 774058-SMC-Z ; 219067-CUH-R; 130575-Yubsdjivffekf; 225320-Vmvqsdjoqhh, Total; 787194-BOU-K (Total); 055104-Jxakd LDL-P; 712234-GGM Size; 017341-NQ-HX Scorewas developed and its performance characteristics determinedby [employer]. It has not been cleared or approved by the Foodand Drug Administration.PATIENT WAS FASTINGPERFORMED BY: Kumo [address] [id number] BY: [employer]ubeacon[address] YardsaleFormerly [facility] [id number] Eosinophils/100 WBC (Bld) 3 % Normal [facility]; [facility] Work Phone: Comment on above: Test(s) 058411-DJO-O ; 197038-DDX-L; 323958-Rtvqewseiuene; 993468-Qphaqznhtqv, Total; 888432-CQF-K (Total); 758916-Hlpot LDL-P; 782508-UNQ Size; 508842-OI-XX Scorewas developed and its performance characteristics determinedby [employer]. It has not been cleared or approved by the Foodand Drug Administration.PATIENT WAS FASTINGPERFORMED BY: Kumo [address] [id number] BY: [employer]ube[employer]70 MedaPhorFormerly [facility] [id number] Erythrocyte distribution width (RBC) [Ratio] 12.5 % Normal 11.6-15.4 [facility]; [facility] Work Phone: Comment on above: Test(s) 568241-DTI-C ; 485698-QTP-Q; 244533-Mvqwteiyretom; 190672-Xgmmipmydsx, Total; 643327-OKI-J (Total); 251122-Ubauj LDL-P; 218054-DYH Size; 752734-SC-SN Scorewas developed and its performance characteristics determinedby [employer]. It has not been cleared or approved by the Foodand Drug Administration.PATIENT WAS FASTINGPERFORMED BY: Kumo [address] [id number] BY: TopTechPhoto6370 MedaPhorFormerly [facility] [id number] Hematocrit (Bld) [Volume fraction] 42.4 % Normal 37.5-51.0 [facility]; [facility] Work Phone: Comment on above: Test(s) 433098-ZGR-N ; 173092-OVS-S; 897814-Ifeoxxmgvjfih; 391672-Gcjjlujxgmb, Total; 948288-JRC-S (Total); 613075-Grbio LDL-P; 969789-KPZ Size; 092901-YQ-ZD Scorewas developed and its performance characteristics determinedby [employer]. It has not been cleared or approved by the Foodand Drug Administration.PATIENT WAS FASTINGPERFORMED BY: Ecopol[address] [id number] BY: Azteq MobileHedrick Medical Center [id number] Hemoglobin (Bld) [Mass/Vol] 14.7 g/dL Normal 13.0-17.7 [facility]; [facility] Work Phone: Comment on above: Test(s) 927333-QFB-X ; 279967-XZW-L; 282868-Hshvvfuurnrwb; 729752-Kodvljzjcag, Total; 260633-GAA-H (Total); 798849-Npzhy LDL-P; 307299-MBA Size; 821025-LW-QC Scorewas developed and its performance characteristics determinedby [employer]. It has not been cleared or approved by the FoodFed Playbook Drug Administration.PATIENT WAS FASTINGPERFORMED BY: Ecopol[address] [id number] BY: TopTechPhoto6370 [facility] [id number] Immature granulocytes (Bld) [#/Vol] 0.0 {x10E3/uL} Normal 0.0-0.1 [facility]; [facility] Work Phone: Comment on above: Test(s) 727044-TYW-F ; 066556-JGW-K; 702168-Zfxpbpzvkugsx; 721958-Xxnrxwhijhb, Total; 518409-NOM-D (Total); 237408-Pcbgj LDL-P; 447007-JBU Size; 799415-FJ-LG Scorewas developed and its performance characteristics determinedby [employer]. It has not been cleared or approved by the Foodand Drug Administration.PATIENT WAS FASTINGPERFORMED BY: [employer] [id number] BY: [employer] Ssdkha9236 [facility] [id number] Immature granulocytes (Bld) [#/Vol] 0.0 10*3/uL Normal 0.0-0.1 [facility]; [facility] Work Phone: Comment on above: Test(s) 545615-AEB-X ; 201275-NEW-G; 636846-Swsibfyubpqip; 492361-Yvjuqiyqfxv, Total; 310989-MDO-Q (Total); 894977-Sdfux LDL-P; 717596-HXG Size; 241296-ST-DF Scorewas developed and its performance characteristics determinedby [employer]. It has not been cleared or approved by the Foodand Drug Administration.PATIENT WAS FASTINGPERFORMED BY: Kumo [address] [id number] BY: Cubeacon70 [facility]adoHed[facility] Center [id number] Immature granulocytes/100 WBC (Bld) 0 % Normal [facility]; [facility] Work Phone: Comment on above: Test(s) 515818-EGU-L ; 579326-HDB-X; 149129-Rruxfhpkkruie; 000755-Xooinxyopej, Total; 990751-POG-K (Total); 310031-Caduh LDL-P; 964562-URR Size; 082802-XE-ZA Scorewas developed and its performance characteristics determinedby [employer]. It has not been cleared or approved by the Foodand Drug Administration.PATIENT WAS FASTINGPERFORMED BY: [employer] [id number] BY: [employer]cher Uhwhvt5079 [facility] [facility] [id number] Lymphocytes (Bld) [#/Vol] 1.5 {x10E3/uL} Normal 0.7-3.1 [facility]; [facility] Work Phone: Comment on above: Test(s) 044909-FNO-Y ; 105740-YGH-L; 778571-Dkuopiejikpxm; 443346-Hiuxauvpxwk, Total; 230696-WXZ-N (Total); 317196-Vbwlq LDL-P; 418896-ATF Size; 879015-RS-CI Scorewas developed and its performance characteristics determinedby [employer]. It has not been cleared or approved by the Foodand Drug Administration.PATIENT WAS FASTINGPERFORMED BY: Kumo [address] [id number] BY: Cubeacon70 MedaPhorFormerly [facility] [id number] Lymphocytes (Bld) [#/Vol] 1.5 10*3/uL Normal 0.7-3.1 [facility]; [facility] Work Phone: Comment on above: Test(s) 347224-WYX-A ; 809809-QZB-J; 887183-Qrpxwgkfvytrf; 447792-Fbtkibgfiqw, Total; 496303-FMU-U (Total); 741663-Uwpux LDL-P; 079295-CGG Size; 804584-KB-AW Scorewas developed and its performance characteristics determinedby [employer]. It has not been cleared or approved by the Food[employer] Drug Administration.PATIENT WAS FASTINGPERFORMED BY: Kumo [address] [id number] BY: TopTechPhoto6370 Maldonado YardsaleFormerly [facility] [id number] Lymphocytes/100 WBC (Bld) 32 % Normal [facility]; [facility] Work Phone: Comment on above: Test(s) 752962-QMR-S ; 277410-HHV-C; 657134-Adqywsaydkwla; 839508-Uezelyxeazq, Total; 281025-BOM-D (Total); 126096-Xoedo LDL-P; 964743-SLN Size; 350530-CK-QX Scorewas developed and its performance characteristics determinedby [employer]. It has not been cleared or approved by the Foodand Drug Administration.PATIENT WAS FASTINGPERFORMED BY: Kumo [address] [id number] BY: [employer] Fvuvhx3640 MaldonadoCarondelet HealthRenewable FundingFormerly [facility] [id number] MCH (RBC) [Entitic mass] 31.5 pg Normal 26.6-33.0 [facility]; [facility] Work Phone: Comment on above: Test(s) 960165-QYW-K ; 501045-QSC-Q; 417318-Tfptnudvzrynv; 242998-Uvvvlgtzezu, Total; 128102-WRF-G (Total); 597490-Shcjz LDL-P; 686993-BEM Size; 028601-YY-LY Scorewas developed and its performance characteristics determinedby [employer]. It has not been cleared or approved by the Foodand Drug Administration.PATIENT WAS FASTINGPERFORMED BY: Kumo [address] [id number] BY: Cubeacon70 [facility] [id number] MCHC (RBC) [Mass/Vol] 34.7 g/dL Normal 31.5-35.7 [facility]; [facility] Work Phone: Comment on above: Test(s) 332364-QKW-D ; 790755-NAO-K; 027187-Yuqapzcgbnczd; 369524-Puioiiemfeq, Total; 030954-NZP-M (Total); 767589-Tspra LDL-P; 445263-VFD Size; 381929-YQ-LI Scorewas developed and its performance characteristics determinedby [employer]. It has not been cleared or approved by the Foodand Drug Administration.PATIENT WAS FASTINGPERFORMED BY: Kumo [address] [id number] BY: MediProPharmaCommunity Medical CenterOftjwn0292 [facility] [id number] MCV (RBC) [Entitic vol] 91 fL Normal 79-97 [facility]; [facility] Work Phone: Comment on above: Test(s) 387906-SFT-L ; 051142-DTE-F; 140558-Jfcqiypzuulfi; 994011-Ijxrshermfg, Total; 594298-JYM-Z (Total); 853324-Pdyrx LDL-P; 072416-BDO Size; 092590-BT-ZX Scorewas developed and its performance characteristics determinedby [employer]. It has not been cleared or approved by the Foodand Drug Administration.PATIENT WAS FASTINGPERFORMED BY: [employer] [id number] BY: [employer] [id number] Monocytes (Bld) [#/Vol] 0.6 {x10E3/uL} Normal 0.1-0.9 [facility]; [facility] Work Phone: Comment on above: Test(s) 244496-RFU-X ; 573702-GNY-T; 884901-Kkfziojrcbzok; 143775-Ibavqdqejpl, Total; 030772-ILK-P (Total); 129244-Dtubt LDL-P; 678728-LZI Size; 272722-OD-QA Scorewas developed and its performance characteristics determinedby [employer]. It has not been cleared or approved by the Foodand Drug Administration.PATIENT WAS FASTINGPERFORMED BY: [employer] [id number] BY: MediProPharmaCommunity Medical CenterQfvcsc5529 [facility] [id number] Monocytes (Bld) [#/Vol] 0.6 10*3/uL Normal 0.1-0.9 [facility]; [facility] Work Phone: Comment on above: Test(s) 655870-PYW-Q ; 661202-VHC-X; 075427-Uxrrzzkhrjhun; 743345-Qdcrvgcjvqv, Total; 884925-CDW-A (Total); 398929-Aoaxd LDL-P; 429232-LLH Size; 910233-YF-XJ Scorewas developed and its performance characteristics determinedby [employer]. It has not been cleared or approved by the Foodand Drug Administration.PATIENT WAS FASTINGPERFORMED BY: Kumo [address] [id number] BY: [employer] Xdbjdj2069 [facility] [id number] Monocytes/100 WBC (Bld) 12 % Normal [facility]; [facility] Work Phone: Comment on above: Test(s) 584483-VNS-J ; 694936-VVD-G; 644373-Acidogqbpydqk; 071163-Owqdghddbqr, Total; 294760-HNF-Y (Total); 258168-Qxjus LDL-P; 989335-AIS Size; 648830-QF-ZL Scorewas developed and its performance characteristics determinedby [employer]. It has not been cleared or approved by the Foodand Drug Administration.PATIENT WAS FASTINGPERFORMED BY: Kumo [address] [id number] BY: Cubeacon70 [facility] [id number] Neutrophils (Bld) [#/Vol] 2.5 {x10E3/uL} Normal 1.4-7.0 [facility]; [facility] Work Phone: Comment on above: Test(s) 005884-EOF-E ; 273111-ZRJ-K; 065790-Mhwmsnyjozlfx; 089460-Rsmjswuoexk, Total; 722628-BGT-B (Total); 716578-Uoyor LDL-P; 506107-WPT Size; 004801-CT-CA Scorewas developed and its performance characteristics determinedby [employer]. It has not been cleared or approved by the Foodand Drug Administration.PATIENT WAS FASTINGPERFORMED BY: Kumo [address] [id number] BY: Thompson AerospaceCommunity Medical CenterBcqfoo9345 [facility] [id number] Neutrophils (Bld) [#/Vol] 2.5 10*3/uL Normal 1.4-7.0 [facility]; [facility] Work Phone: Comment on above: Test(s) 827825-OQY-R ; 267321-ADX-W; 477854-Vxuyvlazpuvwq; 609757-Krtlqwmdpih, Total; 171282-HYQ-X (Total); 964391-Dmfej LDL-P; 680729-XDH Size; 503170-EQ-FU Scorewas developed and its performance characteristics determinedby [employer]. It has not been cleared or approved by the Foodand Drug Administration.PATIENT WAS FASTINGPERFORMED BY: Kumo [address] [id number] BY: Cubeacon70 [facility] [id number] Neutrophils/100 WBC (Bld) 53 % Normal [facility]; [facility] Work Phone: Comment on above: Test(s) 447304-TKS-S ; 634696-GVF-G; 133656-Dwikimbbacyzv; 107807-Ljtspleegso, Total; 416387-CHS-H (Total); 409375-Ynepb LDL-P; 963983-BYX Size; 090665-OT-TL Scorewas developed and its performance characteristics determinedby [employer]. It has not been cleared or approved by the Foodand Drug Administration.PATIENT WAS FASTINGPERFORMED BY: Kumo [address] [id number] BY: TopTechPhoto6370 [facility] [id number] Platelets (Bld) [#/Vol] 254 {x10E3/uL} Normal 150-450 [facility]; [facility] Work Phone: Comment on above: Test(s) 814313-OQN-R ; 580145-UEV-T; 379554-Zwqhkzabeomna; 866674-Zemfqamrqmo, Total; 537912-FFX-P (Total); 276084-Ozzbt LDL-P; 869671-KTB Size; 203350-OO-LH Scorewas developed and its performance characteristics determinedby [employer]. It has not been cleared or approved by the Foodand Drug Administration.PATIENT WAS FASTINGPERFORMED BY: Kumo [address] [id number] BY: Cubeacon70 [facility] [id number] Platelets (Bld) [#/Vol] 254 10*3/uL Normal 150-450 [facility] Internal [facility]; [facility] Work Phone: Comment on above: Test(s) 401119-GAW-P ; 805232-MVG-G; 305730-Qgxyfrbjnrsfd; 273365-Yjfvdorcvnu, Total; 584988-NGQ-R (Total); 224986-Tvvyv LDL-P; 837481-JLT Size; 990999-BG-NZ Scorewas developed and its performance characteristics determinedby [employer]. It has not been cleared or approved by the Foodand Drug Administration.PATIENT WAS FASTINGPERFORMED BY: Ecopol[address] [id number] BY: TopTechPhoto6370 [facility] [id number] RBC (Bld) [#/Vol] 4.66 {x10E6/uL} Normal 4.14-5.80 [facility] Internal [facility]; [facility] Work Phone: Comment on above: Test(s) 818736-AZY-D ; 183715-UMB-G; 185983-Podwhnmyrrrfn; 512712-Kzdtylbxwsf, Total; 574623-AEV-Q (Total); 495610-Wmhiz LDL-P; 326499-ZFB Size; 328891-KJ-NX Scorewas developed and its performance characteristics determinedby [employer]. It has not been cleared or approved by the Foodand Drug Administration.PATIENT WAS FASTINGPERFORMED BY: Kumo [address] [id number] BY: PC Network Serviceslin6370 [facility] [id number] RBC (Bld) [#/Vol] 4.66 10*6/uL Normal 4.14-5.80 [facility] Internal Medicine; [facility] Work Phone: Comment on above: Test(s) 515050-GDK-A ; 632034-XVX-Y; 867735-Vqucbutdiiuka; 839924-Qwhbxrqrdsd, Total; 231692-GZY-Y (Total); 387439-Ugzke LDL-P; 970754-QPL Size; 715680-XW-RA Scorewas developed and its performance characteristics determinedby [employer]. It has not been cleared or approved by the Foodand Drug Administration.PATIENT WAS FASTINGPERFORMED BY: Kumo [address] [id number] BY: MediProPharmaCommunity Medical CenterJwwnse2386 [facility] [id number] WBC (Bld) [#/Vol] 4.8 {x10E3/uL} Normal 3.4-10.8 [facility] Internal [facility]; [facility] Work Phone: Comment on above: Test(s) 135082-ICH-K ; 883793-XFE-E; 672198-Iaclcsprpnulr; 931457-Vorkrrtbbhe, Total; 867075-WYV-O (Total); 373412-Vwjvk LDL-P; 927073-XEV Size; 049988-HB-OL Scorewas developed and its performance characteristics determinedby [employer]. It has not been cleared or approved by the Foodand Drug Administration.PATIENT WAS FASTINGPERFORMED BY: Kumo [address] [id number] BY: [employer] Uaiwos6601 [facility] [id number] WBC (Bld) [#/Vol] 4.8 10*3/uL Normal 3.4-10.8 [facility]; [facility] Work Phone: Comment on above: Test(s) 121414-XMR-I ; 989536-HSY-L; 798006-Zewvhppxzwchn; 276487-Zojupubotpl, Total; 759263-ZVD-G (Total); 023423-Tyywu LDL-P; 058249-NTG Size; 167178-OP-VO Scorewas developed and its performance characteristics determinedby [employer]. It has not been cleared or approved by the Foodand Drug Administration.PATIENT WAS FASTINGPERFORMED BY: Ecopol[address] [id number] BY: TopTechPhoto6370 [facility]ado[facility] [id number] HGB A1C (12131)Ordered By: S ystem Carbide Tool Maker on 05-05-2020 HbA1c (Bld) [Mass fraction] 5.7 % Abnormal 4.8-5.6 [facility]; [facility] Work Phone: Comment on above: . Prediabetes: 5.7 - 6.4 Diabetes: >6.4 Glycemic control for adults with diabetes: <7.0 Test(s) 525119-VXA-L ; 207988-POC-E; 570915-Sgeecpzfvmjar; 041561-Uztnxvaaoqp, Total; 263948-ZMG-Z (Total); 264209-Eknlq LDL-P; 939409-PNQ Size; 223047-AL-YY Scorewas developed and its performance characteristics determinedby [employer]. It has not been cleared or approved by the Foodand Drug Administration.PATIENT WAS FASTINGPERFORMED BY: Ecopol[address] [id number] BY: TopTechPhoto6370 [facility] LabsPsychiatric hospital [id number] METABOLIC PANEL, COMPREHENSI VE (52945)Ordered By: 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 on 05-05-2020 Albumin [Mass/Vol] 4.1 g/dL Normal 4.0-5.0 [facility] Internal Medicine; [facility] Work Phone: Comment on above: Test(s) 401030-TWE-O ; 851679-UID-O; 059041-Nglebvcbrpakc; 799943-Eryojcxlnmi, Total; 732164-UGD-G (Total); 679360-Qbpdd LDL-P; 459726-YRX Size; 990882-NM-UX Scorewas developed and its performance characteristics determinedby [employer]. It has not been cleared or approved by the Foodand Drug Administration.PATIENT WAS FASTINGPERFORMED BY: Ecopol[address] [id number] BY: TopTechPhoto6370 [facility]ado[facility] [id number] Albumin/Globulin [Mass ratio] 1.6 {ratio} Normal 1.2-2.2 [facility]; [facility] Work Phone: Comment on above: Test(s) 071548-PBT-I ; 565704-TEW-R; 498472-Ystrryoiipnxb; 243882-Uaycvgniyfi, Total; 476437-RSV-A (Total); 845364-Gxhye LDL-P; 119744-FWQ Size; 596562-IZ-CB Scorewas developed and its performance characteristics determinedby [employer]. It has not been cleared or approved by the Foodand Drug Administration.PATIENT WAS FASTINGPERFORMED BY: Kumo [address] [id number] BY: QuVISPsychiatric hospital [id number] ALP [Catalytic activity/Vol] 78 [iU]/L Normal 39117 [facility]; [facility] Work Phone: Comment on above: Test(s) 281869-SYV-Y ; 801746-EUL-Q; 563382-Ibuichrqrrawu; 575963-Ahfdkxhrpbv, Total; 404159-RGS-L (Total); 492410-Gzvhu LDL-P; 719959-MCT Size; 426364-HR-GZ Scorewas developed and its performance characteristics determinedby [employer]. It has not been cleared or approved by the Foodand Drug Administration.PATIENT WAS FASTINGPERFORMED BY: Kumo [address] [id number] BY: Cubeacon70 [facility] [id number] ALP [Catalytic activity/Vol] 78 U/L Normal 39-117 [facility]; [facility] Work Phone: Comment on above: Test(s) 954560-GHM-U ; 948121-TXA-O; 551563-Tdrpaseunxjev; 677377-Eovqvebsukx, Total; 998907-NSM-T (Total); 559139-Bnquv LDL-P; 411641-GNB Size; 793798-LK-KC Scorewas developed and its performance characteristics determinedby [employer]. It has not been cleared or approved by the Foodand Drug Administration.PATIENT WAS FASTINGPERFORMED BY: [employer] [id number] BY: MediProPharmaCommunity Medical CenterLdwupm4061 [facility] [id number] ALT [Catalytic activity/Vol] 42 [iU]/L Normal 0-44 [facility]; [facility] Work Phone: Comment on above: Test(s) 071954-IHZ-N ; 637652-JZZ-G; 123514-Xkejiwzlfuycu; 872618-Cjzgadzmadl, Total; 743441-BSM-T (Total); 385876-Wdzcw LDL-P; 178610-PWI Size; 659650-MU-SY Scorewas developed and its performance characteristics determinedby [employer]. It has not been cleared or approved by the Foodand Drug Administration.PATIENT WAS FASTINGPERFORMED BY: [employer] [address] [id number] BY: MediProPharmaCommunity Medical CenterFujoys7687 [facility] [id number] ALT [Catalytic activity/Vol] 42 U/L Normal 0-44 [facility]; [facility] Work Phone: Comment on above: Test(s) 279271-QUW-R ; 581316-MUW-B; 432376-Gjsjrkxsfnqmd; 391662-Vqucbgfpxrr, Total; 770127-BMU-R (Total); 563712-Nhnfg LDL-P; 398218-JAW Size; 956606-NP-KN Scorewas developed and its performance characteristics determinedby [employer]. It has not been cleared or approved by the Foodand Drug Administration.PATIENT WAS FASTINGPERFORMED BY: [employer] [id number] BY: MediProPharmaGary Ville 4563170 [facility] [id number] AST [Catalytic activity/Vol] 26 [iU]/L Normal 0-40 [facility]; [facility] Work Phone: Comment on above: Test(s) 331973-MKK-H ; 924914-DRS-V; 796223-Hgokheozifogq; 866073-Dbsjlzcibll, Total; 483247-KZA-G (Total); 832905-Xltfh LDL-P; 525541-WSP Size; 341034-DQ-BI Scorewas developed and its performance characteristics determinedby [employer]. It has not been cleared or approved by the Foodand Drug Administration.PATIENT WAS FASTINGPERFORMED BY: Kumo [address] [id number] BY: [employer]6370 [facility] [id number] AST [Catalytic activity/Vol] 26 U/L Normal 0-40 [facility]; [facility] Work Phone: Comment on above: Test(s) 181198-HZC-Q ; 375351-GYM-E; 558108-Bnmrrefwwvevq; 967902-Izfliiihlmm, Total; 161032-TBL-M (Total); 265225-Hhnbq LDL-P; 549181-LPR Size; 684277-DY-CC Scorewas developed and its performance characteristics determinedby [employer]. It has not been cleared or approved by the Foodand Drug Administration.PATIENT WAS FASTINGPERFORMED BY: Kumo [address] [id number] BY: [employer] Zkgdof3719 [facility] [id number] Bilirubin [Mass/Vol] 0.3 mg/dL Normal 0.0-1.2 [facility] Internal Medicine; [facility] Work Phone: Comment on above: Test(s) 650264-PFZ-B ; 930303-EFT-F; 507701-Uybcuidpshubc; 789134-Gqnhlgofjud, Total; 734665-PZF-K (Total); 156341-Sacli LDL-P; 105395-SMR Size; 205247-WG-MB Scorewas developed and its performance characteristics determinedby [employer]. It has not been cleared or approved by the Foodand Drug Administration.PATIENT WAS FASTINGPERFORMED BY: Kumo [address] [id number] BY: [employer] Network Serviceslin6370 [facility] [id number] Calcium [Mass/Vol] 8.7 mg/dL Normal 8.7-10.2 [facility] Internal Medicine; [facility] Work Phone: Comment on above: Test(s) 529248-BIV-G ; 287594-ZJQ-M; 063154-Brvkzuommweph; 869993-Gxvezgabaci, Total; 244366-BWB-Z (Total); 259086-Uorgy LDL-P; 604926-TCO Size; 642833-JT-UA Scorewas developed and its performance characteristics determinedby [employer]. It has not been cleared or approved by the Foodand Drug Administration.PATIENT WAS FASTINGPERFORMED BY: Ecopol[address] [id number] BY: TopTechPhoto6370 [facility] [id number] Chloride [Moles/Vol] 108 mmol/L Abnormal 96-106 [facility]; [facility] Work Phone: Comment on above: Test(s) 550854-MAJ-D ; 542582-BKM-J; 256095-Qmkaapdsgmbca; 970936-Ytegmvqoddf, Total; 266014-FYF-F (Total); 211401-Qevyf LDL-P; 627073-EPE Size; 312572-TI-FN Scorewas developed and its performance characteristics determinedby [employer]. It has not been cleared or approved by the Foodand Drug Administration.PATIENT WAS FASTINGPERFORMED BY: Ecopol[address] [id number] BY: [employer] Cmbpfl3537 [facility] [id number] CO2 [Moles/Vol] 22 mmol/L Normal 20-[address] [facility] Internal Medicine; [facility] Work Phone: Comment on above: Test(s) 823282-QEH-I ; 226592-UMM-M; 048006-Zewbenkqkoodk; 965604-Zcyosrnacti, Total; 469606-VFL-B (Total); 477720-Fkxoz LDL-P; 244496-BGH Size; 914233-AN-OR Scorewas developed and its performance characteristics determinedby [employer]. It has not been cleared or approved by the Foodand Drug Administration.PATIENT WAS FASTINGPERFORMED BY: Kumo [address] [id number] BY: Cubeacon70 Maldonado SedicidodiciPsychiatric hospital [id number] Creatinine [Mass/Vol] 0.97 mg/dL Normal 0.76-1.27 [facility] prehensive Internal Medicine; [facility] Work Phone: Comment on above: Test(s) 346925-HVW-L ; 348490-DUJ-K; 143122-Ugzmzaqpazkku; 970976-Xegsrfiwnvz, Total; 540601-NBX-S (Total); 140112-Jgiec LDL-P; 659383-SSP Size; 426418-BW-CD Scorewas developed and its performance characteristics determinedby [employer]. It has not been cleared or approved by the Foodand Drug Administration.PATIENT WAS FASTINGPERFORMED BY: Kumo [address] [id number] BY: Cubeacon70 Maldonado SedicidodiciPsychiatric hospital [id number] GFR/1.73 sq M predicted among blacks CKD-EPI (S/P/Bld) [Vol rate/Area] 106 mL/min/1.73 Normal [facility]; [facility] Work Phone: Comment on above: Test(s) 464107-WBT-N ; 098741-FZY-Y; 590814-Axpwzrukfblvx; 783506-Waeifxnfkpo, Total; 163536-TDF-O (Total); 531916-Msbay LDL-P; 741497-XXF Size; 489620-IH-MI Scorewas developed and its performance characteristics determinedby [employer]. It has not been cleared or approved by the Foodand Drug Administration.PATIENT WAS FASTINGPERFORMED BY: Kumo [address] [id number] BY: Cubeacon70 [facility] [id number] GFR/1.73 sq M predicted among non-blacks CKD-EPI (S/P/Bld) [Vol rate/Area] 92 mL/min/1.73 Normal [facility]; [facility] Work Phone: Comment on above: Test(s) 337008-UCO-G ; 092674-GBJ-S; 710797-Nkszcccxjpqpq; 448208-Deqstdunwqn, Total; 064209-MGY-M (Total); 434314-Oqghh LDL-P; 696677-FKE Size; 817976-ID-TI Scorewas developed and its performance characteristics determinedby [employer]. It has not been cleared or approved by the Foodand Drug Administration.PATIENT WAS FASTINGPERFORMED BY: Ecopol[address] [id number] BY: [employer]6370 [facility] [id number] Globulin (S) [Mass/Vol] 2.6 g/dL Normal 1.5-4.5 [facility]; [facility] Work Phone: Comment on above: Test(s) 686083-OCX-E ; 111163-EXL-P; 376822-Ppxotewkmnkoh; 800400-Gwoushtcmwf, Total; 909714-DIP-U (Total); 593663-Siurp LDL-P; 032586-GJR Size; 195701-CR-SZ Scorewas developed and its performance characteristics determinedby [employer]. It has not been cleared or approved by the Foodand Drug Administration.PATIENT WAS FASTINGPERFORMED BY: Kumo [address] [id number] BY: TopTechPhoto6370 [facility] [id number] Glucose [Mass/Vol] 112 mg/dL Abnormal 65-99 [facility] Internal Medicine; [facility] Work Phone: Comment on above: Test(s) 410069-UFC-S ; 397015-JOD-V; 666710-Jjrxuoxbxrqse; 171591-Ekkqwdjhnoc, Total; 079143-DLH-D (Total); 520939-Swrro LDL-P; 877516-AEG Size; 112043-VL-TC Scorewas developed and its performance characteristics determinedby [employer]. It has not been cleared or approved by the Foodand Drug Administration.PATIENT WAS FASTINGPERFORMED BY: [employer] [id number] BY: [employer] Iklnez0042 [facility] [id number] Potassium [Moles/Vol] 4.8 mmol/L Normal 3.5-5.2 [facility]; [facility] Work Phone: Comment on above: Test(s) 920207-RSG-X ; 296745-NEM-D; 873418-Oxkwjmkufmfgc; 281101-Rwmnjpzyxpb, Total; 824531-MMH-Q (Total); 198295-Rplrc LDL-P; 898397-SGW Size; 021125-NT-AV Scorewas developed and its performance characteristics determinedby [employer]. It has not been cleared or approved by the Foodand Drug Administration.PATIENT WAS FASTINGPERFORMED BY: Kumo [address] [id number] BY: [employer] Umdoiz3019 [facility] [id number] Protein [Mass/Vol] 6.7 g/dL Normal 6.0-8.5 [facility] Internal Medicine; [facility] Work Phone: Comment on above: Test(s) 399980-GSG-R ; 539800-YDJ-K; 724005-Xrlugbljxtund; 792787-Ycljrltfctt, Total; 788127-NVL-H (Total); 937016-Abxzo LDL-P; 928896-DZA Size; 241404-EA-ZQ Scorewas developed and its performance characteristics determinedby [employer]. It has not been cleared or approved by the Foodand Drug Administration.PATIENT WAS FASTINGPERFORMED BY: Kumo [address] [id number] BY: [employer] Eexngv0950 [facility] [id number] Sodium [Moles/Vol] 143 mmol/L Normal 134-144 [facility] Internal Medicine; [facility] Work Phone: Comment on above: Test(s) 743052-ZNO-V ; 878596-OBH-W; 802874-Nbvxjlxktnfvy; 553132-Pkyfzzapryw, Total; 430122-SRA-V (Total); 000828-Obrcq LDL-P; 194371-BXF Size; 696757-NH-EN Scorewas developed and its performance characteristics determinedby [employer]. It has not been cleared or approved by the Foodand Drug Administration.PATIENT WAS FASTINGPERFORMED BY: Kumo [address] [id number] BY: Bill the Butcher Xyuwmm3749 [facility] [id number] Urea nitrogen [Mass/Vol] 11 mg/dL Normal 6-24 [facility]; [facility] Work Phone: Comment on above: Test(s) 132273-MLV-G ; 201226-TIK-I; 383080-Rudoffravpqbz; 223534-Rgymlnaxdoz, Total; 855182-ZJW-D (Total); 972266-Ifcwh LDL-P; 398877-JRI Size; 815741-LL-[place] Scorewas developed and its performance characteristics determinedby [employer]. It has not been cleared or approved by the Foodand Drug Administration.PATIENT WAS FASTINGPERFORMED BY: Kumo [address] [id number] BY: [employer]TechPhoto6370 [facility] [id number] Urea nitrogen/Creatinine [Mass ratio] 11 mg/mg Normal 9-20 [facility]; [facility] Work Phone: Comment on above: Test(s) 791540-GIV-I ; 288587-ZTH-W; 797192-Eupffazqgojos; 677248-Hxmvgaatofj, Total; 901087-YLA-I (Total); 602771-Suxbr LDL-P; 771949-NXY Size; 494246-FB-TM Scorewas developed and its performance characteristics determinedby [employer]. It has not been cleared or approved by the Foodand Drug Administration.PATIENT WAS FASTINGPERFORMED BY: Kumo [address] [id number] BY: DONATO [facility]70 [address] YardsaleFormerly [facility] [id number] MICROALBUMINOrdered By: Syst em Carbide Tool Maker on 05-05-2020 Albumin DL <= 20 mg/L (U) [Mass/Vol] 10.7 ug/mL Normal [facility]; [facility] Work Phone: Comment on above: Test(s) 848328-ONZ-Y ; 490420-KVZ-F; 099074-Hirmfeqyuvdjs; 249083-Snzwhnqchzx, Total; 531869-KYJ-B (Total); 514951-Outju LDL-P; 245142-UIL Size; 213148-VK-LA Scorewas developed and its performance characteristics determinedby [employer]. It has not been cleared or approved by the Foodand Drug Administration.PATIENT WAS FASTINGPERFORMED BY: Kumo [address] [id number] BY: [employer]70 [address] YardsaleFormerly [facility] [id number] Albumin/Creatinine (U) [Mass ratio] 4 {mg/g_creat} Normal 0-29 [facility]; [facility] Work Phone: Comment on above: Normal: 0 - 29 Moder ately increased: 30 - 300 Severely increased: >300 Test(s) 771702-KFR-L ; 311935-XIO-L; 049959-Ahurbgsvxuwar; 706045-Lklofjkhoii, Total; 305613-WPZ-B (Total); 319606-Bhopd LDL-P; 919875-KGP Size; 198690-JN-MX Scorewas developed and its performance characteristics determinedby [employer]. It has not been cleared or approved by the Foodand Drug Administration.PATIENT WAS FASTINGPERFORMED BY: Kumo [address] [id number] BY: Cube[employer]70 [address] SedicidodiciPsychiatric hospital [id number] Creatinine (U) [Mass/Vol] 280.3 mg/dL Normal [facility]; [facility] Work Phone: Comment on above: Test(s) 283120-UOV-K ; 393459-BMJ-K; 010050-Qixexbjmcynxm; 833674-Zyowygceqrf, Total; 921802-YEQ-D (Total); 312676-Hwxox LDL-P; 185602-RJP Size; 340796-WK-IN Scorewas developed and its performance characteristics determinedby [employer]. It has not been cleared or approved by the Foodand Drug Administration.PATIENT WAS FASTINGPERFORMED BY: Ecopol[address] [id number] BY: Cube[employer]70 [facility] LabsPsychiatric hospital [id number] NMR Profile (42253)Ordered B y: 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 on 05-05-2020 Cholesterol [Mass/Vol] 186 mg/dL Normal 100-199 [facility] Internal Medicine; [facility] Work Phone: Comment on above: Test(s) 097375-FLD-H ; 852375-FES-Q; 040282-Lbployadkkyub; 187052-Xvqeovuqjml, Total; 100952-MOV-I (Total); 706018-Ewohp LDL-P; 633183-IIG Size; 005629-ZV-YZ Scorewas developed and its performance characteristics determinedby [employer]. It has not been cleared or approved by the Foodand Drug Administration.PATIENT WAS FASTINGPERFORMED BY: Ecopol[address] [id number] BY: TopTechPhoto6370 [facility] [id number] Lipoprotein.alpha [Moles/Vol] 21.7 umol/L Abnormal [facility]; [facility] Work Phone: Comment on above: Test(s) 332445-ZYB-N ; 634495-CXY-O; 149791-Vpebgfxyrehoq; 395526-Ranobycrkvf, Total; 713578-ENX-M (Total); 449530-Pzpif LDL-P; 448378-TOC Size; 842663-NS-JW Scorewas developed and its performance characteristics determinedby [employer]. It has not been cleared or approved by the Foodand Drug Administration.PATIENT WAS FASTINGPERFORMED BY: [employer] [address] [id number] BY: [employer] Lbikdk0685 Erica [facility] [id number] Lipoprotein.beta.subpa rticle [Entitic length] 20.9 nm Normal [facility]; [facility] Work Phone: Comment on above: INTERPRETATIVE INFORMATION PARTICLE CONCENTRATION AND SIZE <--Lower CVD Risk Higher CVD Risk--> LDL AND HDL PARTICLES Percentile in Reference Population HDL-P (total) High 75th 50th 25th Low >34.9 34.9 30.5 26.7 <26.7 . Small LDL-P Low 25th 50th 75th High <117 117 527 839 >839 . LDL Size <-Large (Pattern A)-> <-Small (Pattern B)-> 23.0 20.6 20.5 19.0 Small LDL-P and LDL Size are associated with CVD risk, but not afterLDL-P is taken into account. Test(s) 038618-IVP-I ; 262276-ODL-E; 637217-Hnfeqvwpnxwnt; 294978-Unuwawhfrrb, Total; 587614-IZM-Z (Total); 463343-Jfsnw LDL-P; 315367-DJH Size; 473565-EI-OU Scorewas developed and its performance characteristics determinedby [employer]. It has not been cleared or approved by the Foodand Drug Administration.PATIENT WAS FASTINGPERFORMED BY: [employer] [address] [id number] BY: TopTechPhoto6370 [facility] [id number] Lipoprotein.beta.subpa rticle [Moles/Vol] 1709 nmol/L Abnormal [facility]; [facility] Work Phone: Comment on above: Low < 1000 Moderate 1000 - 1299 Borderline-High 1300 - 1599 High 1600 - 2000 Very High > 2000 Test(s) 620150-XOI-Q ; 240482-OMY-I; 850734-Mipjcdzfzjtdi; 891403-Fqjmvjmfydl, Total; 216406-KWX-P (Total); 054013-Sqllv LDL-P; 331542-MAX Size; 356805-TK-MV Scorewas developed and its performance characteristics determinedby [employer]. It has not been cleared or approved by the Foodand Drug Administration.PATIENT WAS FASTINGPERFORMED BY: Kumo [address] [id number] BY: TopTechPhoto6370 [facility] [id number] Lipoprotein.beta.subpa rticle.small [Moles/Vol] 843 nmol/L Abnormal [facility]; [facility] Work Phone: Comment on above: Test(s) 905450-FDN-O ; 269625-JXB-Z; 810942-Mdcxkupfjrrtl; 007177-Vsgrnqqsbhs, Total; 692498-QQJ-F (Total); 216818-Yuusf LDL-P; 686498-SOW Size; 949924-PK-MC Scorewas developed and its performance characteristics determinedby [employer]. It has not been cleared or approved by the Foodand Drug Administration.PATIENT WAS FASTINGPERFORMED BY: Kumo [address] [id number] BY: TopTechPhoto6370 [facility] [id number] Triglyceride [Mass/Vol] 138 mg/dL Normal 0-149 [facility]; [facility] Work Phone: Comment on above: Test(s) 492583-RAB-X ; 330379-OYI-O; 760814-Nilcmfyuoykqd; 144170-Qehexfywykz, Total; 559070-JAJ-A (Total); 295845-Rnbss LDL-P; 933036-RPA Size; 252520-JG-DM Scorewas developed and its performance characteristics determinedby [employer]. It has not been cleared or approved by the Foodand Drug Administration.PATIENT WAS FASTINGPERFORMED BY: [employer] [id number] BY: [employer] [id number] NMR Profile (65536) 132 mg/dL Abnormal 0-99 [facility]; [facility] Work Phone: Comment on above: . Optimal < 100 Abov e optimal 100 - 129 Borderline 130 - 159 High 160 - 189 Very high > 189 . Test(s) 845791-LVA-O ; 855581-XYC-O; 582201-Qjxxvuhouhwyu; 025055-Ladxtrguqtu, Total; 155601-IDS-I (Total); 189474-Techt LDL-P; 860716-HXZ Size; 501052-PH-DP Scorewas developed and its performance characteristics determinedby [employer]. It has not been cleared or approved by the Foodand Drug Administration.PATIENT WAS FASTINGPERFORMED BY: Kumo [address] [id number] BY: Thompson AerospaceChinle Comprehensive Health Care FacilityRbsugl2112 [facility] [id number] NMR Profile (81381) 29 mg/dL Abnormal Compr [facility] Internal Medicine; [facility] Work Phone: Comment on above: Test(s) 463319-YNR-B ; 757122-UYH-F; 092080-Sjhkqvctpkgzw; 792900-Vakymwvclph, Total; 311890-WTI-V (Total); 168038-Zraoy LDL-P; 250616-ARE Size; 152769-AS-BQ Scorewas developed and its performance characteristics determinedby [employer]. It has not been cleared or approved by the Foodand Drug Administration.PATIENT WAS FASTINGPERFORMED BY: [employer] [id number] BY: [facility]6370 [facility] [id number] PSA (PROSTATE SPECIFIC ANTIG EN) (V76.44)Ordered By: 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 on 05-05-2020 Prostate specific Ag [Mass/Vol] 0.2 ng/mL Normal 0.0-4.0 [facility]; [facility] Work Phone: Comment on above: Saida ECLIA methodol ogy. .According to the [place] [employer], Serum PSA shoulddecrease and remain at undetectable levels after radicalprostatectomy. The AUA defines biochemical recurrence as an initialPSA value 0.2 ng/mL or greater followed by a subsequent confirmatoryPSA value 0.2 ng/mL or greater.Values obtained with different assay methods or kits cannot be usedinterchangeably. Results cannot be interpreted as absolute evidenceof the presence or absence of malignant disease. Test(s) 779014-ZQG-G ; 108485-BWZ-O; 394249-Skyqffkzcihnk; 889445-Ndzrmmgpuge, Total; 983968-WAS-W (Total); 949717-Avczp LDL-P; 768553-RUJ Size; 608017-TL-PY Scorewas developed and its performance characteristics determinedby [employer]. It has not been cleared or approved by the Foodand Drug Administration.PATIENT WAS FASTINGPERFORMED BY: [employer] [id number] BY: DONATO [facility] HospitalWabi Sabi EcofashionconceptCommunity Medical CenterRjtjmy9660 [facility] [id number] TESTOSTERONE FREE (00049)Ord ered By: 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 on 05-05-2020 Testosterone Free [Mass/Vol] 7.9 pg/mL Normal 6.8-21.5 [facility]; [facility] Work Phone: Comment on above: Test(s) 490219-OPK-N ; 522883-PLE-I; 521880-Spiifdrrbujlr; 987642-Mmjacetiuvi, Total; 362138-HLU-A (Total); 937926-Xzrdx LDL-P; 101923-XXQ Size; 287770-NG-HJ Scorewas developed and its performance characteristics determinedby [employer]. It has not been cleared or approved by the Foodand Drug Administration.PATIENT WAS FASTINGPERFORMED BY: [employer] [address] [id number] BY: [employer] Wycbjc1491 [facility] [id number] TESTOSTERONE TOTAL (85212)Or dered By: 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 on 05-05-2020 Testosterone [Mass/Vol] 423 ng/dL Normal 264-916 [facility]; [facility] Work Phone: Comment on above: Adult male reference interval is based on a population ofhealthy nonobese males (BMI <30) between 19 and 39 years old.Akosua et.al. JCEM 2017,102;2364-1970. PMID: 77979529. Test(s) 714428-AGO-Z ; 779629-FLD-V; 571409-Cyikbumboizgj; 014029-Vwwmqibfomd, Total; 752869-BFO-L (Total); 403378-Uoene LDL-P; 534271-TIL Size; 053213-QY-YB Scorewas developed and its performance characteristics determinedby [employer]. It has not been cleared or approved by the Foodand Drug Administration.PATIENT WAS FASTINGPERFORMED BY: Kumo [address] [id number] BY: [employer] Bprvvg5120 [facility] [id number] TSH (THYROID STIMULATING HOR ZULEIKA) (00330)Ordered By: 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 on 05-05-2020 TSH Qn 1.010 {uIU/mL} Normal 0.450-4.[address] [facility] Internal Medicine; [facility] Work Phone: Comment on above: Test(s) 023534-IBZ-D ; 030694-WAA-O; 612928-Skgoqsiexinlx; 774952-Phncahvzzez, Total; 094608-QBX-A (Total); 895400-Bcfau LDL-P; 283737-MDA Size; 740775-PJ-QY Scorewas developed and its performance characteristics determinedby [employer]. It has not been cleared or approved by the Foodand Drug Administration.PATIENT WAS FASTINGPERFORMED BY: [employer] [id number] BY: Thompson AerospaceChinle Comprehensive Health Care FacilityGnneyd3627 [facility] [id number] URINALYSIS, W/ MICRO (12559) Ordered By: 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 on 05-05-2020 Appearance (U) Clear Normal Comprehens harshil Internal Medicine; [facility] Work Phone: Comment on above: Test(s) 387918-AUO-G ; 615640-RRJ-M; 656339-Bvjihlpgcvptv; 577805-Fdsyyhkbmpy, Total; 201508-KVN-Q (Total); 250522-Ujpyf LDL-P; 563063-CIB Size; 565786-NN-ON Scorewas developed and its performance characteristics determinedby [employer]. It has not been cleared or approved by the Foodand Drug Administration.PATIENT WAS FASTINGPERFORMED BY: Ecopol[address] [id number] BY: [employer]6370 [facility] [id number] Bilirubin Ql (U) Negative Normal Comprehe nsive Internal Medicine; [facility] Work Phone: Comment on above: Test(s) 792684-SGW-O ; 069004-UDI-Y; 948639-Dasavvoblazrn; 148767-Wnvdrovyzxw, Total; 866637-UVF-R (Total); 609850-Nqvun LDL-P; 937973-DYI Size; 932208-MC-YR Scorewas developed and its performance characteristics determinedby [employer]. It has not been cleared or approved by the Foodand Drug Administration.PATIENT WAS FASTINGPERFORMED BY: Ecopol[address] [id number] BY: [employer] Network Serviceslin6370 [facility] [id number] Bilirubin Ql (U) Negative Normal Comprehe nsive Internal Medicine; [facility] Work Phone: Comment on above: Test(s) 148701-XMT-X ; 291025-FPA-R; 725251-Nofiyxtiezjrc; 125761-Kpvudtpniah, Total; 484438-VFU-B (Total); 712055-Fnyor LDL-P; 191007-OEO Size; 881935-WK-VH Scorewas developed and its performance characteristics determinedby [employer]. It has not been cleared or approved by the Foodand Drug Administration.PATIENT WAS FASTINGPERFORMED BY: Kumo [address] [id number] BY: Azteq MobileHedrick Medical Center [id number] Color (U) Yellow Normal [facility]; [facility] Work Phone: Comment on above: Test(s) 941100-ITN-L ; 437969-EZL-K; 952403-Goixfkjhflwgj; 267167-Opqktlgmztj, Total; 909164-UUG-S (Total); 002203-Bgjvm LDL-P; 266719-KXO Size; 679267-CQ-RH Scorewas developed and its performance characteristics determinedby [employer]. It has not been cleared or approved by the Foodand Drug Administration.PATIENT WAS FASTINGPERFORMED BY: Ecopol[address] [id number] BY: Cubeacon70 [facility] [id number] Glucose Ql (U) Negative Normal [facility] Internal Medicine; [facility] Work Phone: Comment on above: Test(s) 450985-YLA-O ; 816421-PLG-R; 551364-Xaneualwwfrbe; 078969-Avfklvmrqij, Total; 979270-XBM-V (Total); 807837-Fxpuy LDL-P; 144542-YET Size; 425109-IW-WJ Scorewas developed and its performance characteristics determinedby [employer]. It has not been cleared or approved by the Foodand Drug Administration.PATIENT WAS FASTINGPERFORMED BY: Ecopol[address] [id number] BY: Cubeacon70 [address] YardsaleFormerly [facility] [id number] Glucose Ql (U) Negative Normal Comprehens harshil Internal Medicine; [facility] Work Phone: Comment on above: Test(s) 718934-FSR-J ; 313797-MHR-W; 884069-Bwwffruhldhfk; 222799-Hadlmbtbifk, Total; 287729-PII-I (Total); 956760-Bfbhd LDL-P; 034554-DRA Size; 093203-TW-HY Scorewas developed and its performance characteristics determinedby [employer]. It has not been cleared or approved by the Foodand Drug Administration.PATIENT WAS FASTINGPERFORMED BY: Kumo [address] [id number] BY: Bill the Butcher Tmzstr9101 [facility] [id number] Hemoglobin Ql (U) Negative Normal Compreh ensive Internal Medicine; [facility] Work Phone: Comment on above: Test(s) 962278-ZEU-C ; 077417-IEC-R; 675437-Jpeqyemoeeshc; 841004-Eiqckquulez, Total; 240147-IXU-V (Total); 614409-Epgmi LDL-P; 458397-QZW Size; 302184-PH-NA Scorewas developed and its performance characteristics determinedby [employer]. It has not been cleared or approved by the Foodand Drug Administration.PATIENT WAS FASTINGPERFORMED BY: Kumo [address] [id number] BY: Bill the Butcher Yxbsqn9121 [facility] [id number] Hemoglobin Ql (U) Negative Normal Compreh ensive Internal Medicine; [facility] Work Phone: Comment on above: Test(s) 287881-OBB-S ; 848243-HBL-U; 316896-Kwjoospzowuxc; 214910-Vaqaurngkyg, Total; 560421-AID-M (Total); 194649-Nkhmv LDL-P; 682370-DHS Size; 580453-HS-QP Scorewas developed and its performance characteristics determinedby [employer]. It has not been cleared or approved by the Foodand Drug Administration.PATIENT WAS FASTINGPERFORMED BY: Kumo [address] [id number] BY: [employer] Pzzxgn5873 [facility] [id number] Ketones Ql (U) Trace Abnormal Comprehens harshil Internal Medicine; [facility] Work Phone: Comment on above: Test(s) 809580-NXR-H ; 410438-ULF-U; 391626-Pquoffodktdcw; 542070-Aeyttqfaolp, Total; 420285-FHU-W (Total); 803095-Lwiru LDL-P; 718753-VLH Size; 154817-FR-HA Scorewas developed and its performance characteristics determinedby [employer]. It has not been cleared or approved by the Foodand Drug Administration.PATIENT WAS FASTINGPERFORMED BY: Kumo [address] [id number] BY: [employer]ube[employer]70 [address] SedicidodiciPsychiatric hospital [id number] Leukocyte esterase Test strip Ql (U) Negative Normal [facility]; [facility] Work Phone: Comment on above: Test(s) 346730-ROB-T ; 297792-AEA-S; 414497-Abzfnxwncjgjx; 685486-Ydlndfggsua, Total; 510740-ZUA-L (Total); 971682-Effui LDL-P; 407841-DBI Size; 921037-UK-US Scorewas developed and its performance characteristics determinedby [employer]. It has not been cleared or approved by the Foodand Drug Administration.PATIENT WAS FASTINGPERFORMED BY: [employer] [id number] BY: Thompson AerospaceCommunity Medical CenterHtkyrc3940 [facility] [id number] Leukocyte esterase Test strip Ql (U) Negative Normal [facility]; [facility] Work Phone: Comment on above: Test(s) 214894-WBW-T ; 526373-JEM-O; 888295-Cxcgqwwnflipb; 005500-Zsdlpesbgna, Total; 739971-IEL-Q (Total); 555490-Elvnb LDL-P; 145120-OEI Size; 878213-DW-FK Scorewas developed and its performance characteristics determinedby [employer]. It has not been cleared or approved by the Foodand Drug Administration.PATIENT WAS FASTINGPERFORMED BY: Kumo [address] [id number] BY: [employer] Bfbrku0932 MedaPhorFormerly [facility] [id number] Microscopic observation LM Nom (Urine sed) MICRON Normal [facility]; [facility] Work Phone: Comment on above: Microscopic follows if indicated. Test(s) 121117-XYG-B ; 722516-LHG-V; 358176-Ojksbdhohgwdi; 463407-Rgqmccfbsqo, Total; 797115-RZP-W (Total); 460597-Ypxtg LDL-P; 637978-WAW Size; 045769-IO-VS Scorewas developed and its performance characteristics determinedby [employer]. It has not been cleared or approved by the Foodand Drug Administration.PATIENT WAS FASTINGPERFORMED BY: Kumo [address] [id number] BY: [employer]ubeacon70 MedaPhorFormerly [facility] [id number] Microscopic observation LM Nom (Urine sed) See below: Normal [facility]; [facility] Work Phone: Comment on above: Microscopic was anna cated and was performed. Test(s) 608935-NTK-N ; 436193-CSD-R; 395862-Alyqatvnfelgc; 430681-Pzbpzmsncus, Total; 280044-BOC-W (Total); 580027-Maolk LDL-P; 397434-TUL Size; 690049-KK-UW Scorewas developed and its performance characteristics determinedby [employer]. It has not been cleared or approved by the Foodand Drug Administration.PATIENT WAS FASTINGPERFORMED BY: Kumo [address] [id number] BY: [employer] Serviceslin6370 [facility] LabsPsychiatric hospital [id number] Nitrite Ql (U) Negative Normal Comprehens harshil Internal Medicine; [facility] Work Phone: Comment on above: Test(s) 653992-KDC-L ; 085291-NXP-O; 364241-Qexgrobtypang; 986277-Tzjdzhehcyn, Total; 682565-TVX-X (Total); 995424-Swrbx LDL-P; 520539-AGO Size; 912412-NQ-XB Scorewas developed and its performance characteristics determinedby [employer]. It has not been cleared or approved by the Foodand Drug Administration.PATIENT WAS FASTINGPERFORMED BY: Kumo [address] [id number] BY: Bill [employer] Butcher Ysixav1757 [facility] [id number] Nitrite Ql (U) Negative Normal [facility] Internal [facility]; [facility] Work Phone: Comment on above: Test(s) 753152-EWI-X ; 149406-DOL-L; 715759-Tenvlodaxvqip; 614532-Gnjavlrwvsa, Total; 252716-TPK-F (Total); 505575-Zmqqk LDL-P; 400845-XAG Size; 487033-QJ-UP Scorewas developed and its performance characteristics determinedby [employer]. It has not been cleared or approved by the Foodand Drug Administration.PATIENT WAS FASTINGPERFORMED BY: Kumo Chfjchrysq7249 [facility] [id number] BY: [employer]cher Zlvsbc6475 [facility] [id number] pH (U) 6.0 [pH] Normal 5.0-7.5 [facility]; [facility] Work Phone: Comment on above: Test(s) 480976-BVQ-Y ; 567219-OVP-T; 030948-Aikjluyuixrhl; 371287-Kcniscotitf, Total; 173888-XTB-W (Total); 956513-Qrloi LDL-P; 940039-VUV Size; 785040-PM-SD Scorewas developed and its performance characteristics determinedby [employer]. It has not been cleared or approved by the Foodand Drug Administration.PATIENT WAS FASTINGPERFORMED BY: Kumo [address] [id number] BY: [employer]6370 [facility] [id number] Protein Ql (U) Trace Normal Comprehens harshil Internal Medicine; [facility] Work Phone: Comment on above: Test(s) 702150-XDM-M ; 921028-HNY-I; 058175-Foaohvckmtwlh; 765269-Tzxsthmpfna, Total; 717006-BJS-A (Total); 581850-Ascuj LDL-P; 419493-JBQ Size; 483342-TJ-CW Scorewas developed and its performance characteristics determinedby [employer]. It has not been cleared or approved by the Foodand Drug Administration.PATIENT WAS FASTINGPERFORMED BY: Kumo [address] [id number] BY: [employer]6370 [facility] [id number] Specific gravity (U) [Rel density] 1.027 1 Normal 1.005-1.030 [facility]; [facility] Work Phone: Comment on above: Test(s) 298535-LVE-Y ; 549561-TOF-C; 670075-Pxqeexbxlukue; 867756-Avyqndmwvzn, Total; 390335-ZQC-G (Total); 490815-Dybyf LDL-P; 682061-YRL Size; 081041-TR-FJ Scorewas developed and its performance characteristics determinedby [employer]. It has not been cleared or approved by the Foodand Drug Administration.PATIENT WAS FASTINGPERFORMED BY: Kumo [address] [id number] BY: [employer] Serviceslin6370 [facility] [id number] Urobilinogen (U) [Mass/Vol] 1.0 mg/dL Normal 0.2-1.0 [facility]; [facility] Work Phone: Comment on above: Test(s) 825988-MGD-A ; 298088-UVK-G; 991595-Qwrqqmyjddxzw; 240605-Xcvwycyvisn, Total; 149489-JSB-Y (Total); 063956-Owtng LDL-P; 231513-XLQ Size; 182636-QM-QG Scorewas developed and its performance characteristics determinedby [employer]. It has not been cleared or approved by the Foodand Drug Administration.PATIENT WAS FASTINGPERFORMED BY: [facility] [address] [id number] BY: Cubeacon70 MedaPhorFormerly [facility] [id number] Urobilinogen Test strip (U) [Mass/Vol] 1.0 mg/dL Normal 0.2-1.0 Comprehensi Internal Medicine; [facility] Work Phone: Comment on above: Test(s) 794254-MWB-J ; 470077-SCH-B; 818181-Brjemqccsgmqu; 175548-Gapaxprexby, Total; 007192-JLE-S (Total); 405111-Uremu LDL-P; 200117-GGW Size; 217805-ZJ-GA Scorewas developed and its performance characteristics determinedby [employer]. It has not been cleared or approved by the Foodand Drug Administration.PATIENT WAS FASTINGPERFORMED BY: Kumo [address] [id number] BY: TopTechPhoto6370 MedaPhorFormerly [facility] [id number] CBC W/AUTO DIFF WBC (19162)O rdered By: 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 on 07-27-2014 Basophils (Bld) [#/Vol] 0.0 {x10E3/uL} Normal 0.0-0.2 [facility]; [facility] Work Phone: Comment on above: PATIENT WAS FASTINGP ERFORMED BY: RockaboxFormerly [facility] [id number] Information: 472789,F48763 Basophils (Bld) [#/Vol] 0.0 10*3/uL Normal 0.0-0.2 [facility]; [facility] Work Phone: Comment on above: PATIENT WAS FASTINGP ERFORMED BY: DONATO Arciniega Xzeehx7522 [facility] [id number] Information: 857187,D79068 Basophils/100 WBC (Bld) 0 % Normal [facility]; [facility] Work Phone: Comment on above: PATIENT WAS FASTINGP ERFORMED BY: [facility] Rhtfih6757 [facility] [id number] Information: 683742,R26959 Eosinophils (Bld) [#/Vol] 0.4 {x10E3/uL} Normal 0.0-0.4 [facility]; [facility] Work Phone: Comment on above: PATIENT WAS FASTINGP ERFORMED BY: DONATO Demian Duspvj4315 [facility] [id number] Information: 480113,O20345 Eosinophils (Bld) [#/Vol] 0.4 10*3/uL Normal 0.0-0.4 [facility]; [facility] Work Phone: Comment on above: PATIENT WAS FASTINGP ERFORMED BY: [facility] Wnqkdw2677 [facility] [id number] Information: 543599,I10107 Eosinophils/100 WBC (Bld) 4 % Normal [facility]; [facility] Work Phone: Comment on above: PATIENT WAS FASTINGP ERFORMED BY: [place] 1919870 [facility] [id number] Information: 034317,J65521 Erythrocyte distribution width (RBC) [Ratio] 13.8 % Normal 12.3-15.4 [facility]; [facility] Work Phone: Comment on above: PATIENT WAS FASTINGP ERFORMED BY: [facility] Vnxqrj5709 [facility] [id number] Information: 492391,V26244 Hematocrit (Bld) [Volume fraction] 46.7 % Normal 37.5-51.0 [facility]; [facility] Work Phone: Comment on above: PATIENT WAS FASTINGP ERFORMED BY: [facility]6370 [facility] [id number] Information: 055381,U97352 Hemoglobin (Bld) [Mass/Vol] 15.8 g/dL Normal 12.6-17.7 [facility]; [facility] Work Phone: Comment on above: PATIENT WAS FASTINGP ERFORMED BY: [address] [id number] Information: 150163,T63467 Immature granulocytes (Bld) [#/Vol] 0.0 {x10E3/uL} Normal 0.0-0.1 [facility]; [facility] Work Phone: Comment on above: PATIENT WAS FASTINGP ERFORMED BY: [address] [id number] Information: 008606,J80735 Immature granulocytes (Bld) [#/Vol] 0.0 10*3/uL Normal 0.0-0.1 [facility]; [facility] Work Phone: Comment on above: PATIENT WAS FASTINGP ERFORMED BY: [address] [id number] Information: 528627,T76561 Immature granulocytes/100 WBC (Bld) 0 % Normal [facility]; [facility] Work Phone: Comment on above: PATIENT WAS FASTINGP ERFORMED BY: [place] 1919870 [facility] [id number] Information: 224003,W72824 Lymphocytes (Bld) [#/Vol] 3.6 {x10E3/uL} Abnormal 0.7-3.1 [facility]; [facility] Work Phone: Comment on above: PATIENT WAS FASTINGP ERFORMED BY: [place] 1919870 [facility] [id number] Information: 079300,Q78545 Lymphocytes (Bld) [#/Vol] 3.6 10*3/uL Abnormal 0.7-3.1 [facility]; [facility] Work Phone: Comment on above: PATIENT WAS FASTINGP ERFORMED BY: DONATO Singh6370 [facility] [id number] Information: 649159,I09900 Lymphocytes/100 WBC (Bld) 43 % Normal [facility]; [facility] Work Phone: Comment on above: PATIENT WAS FASTINGP ERFORMED BY: [address] [id number] Information: 708866,U53781 MCH (RBC) [Entitic mass] 30.4 pg Normal 26.6-33.0 [facility]; [facility] Work Phone: Comment on above: PATIENT WAS FASTINGP ERFORMED BY: [address] [id number] Information: 044879,P44270 MCHC (RBC) [Mass/Vol] 33.8 g/dL Normal 31.5-35.7 [facility] prehensive Internal Medicine; [facility] Work Phone: Comment on above: PATIENT WAS FASTINGP ERFORMED BY: DONATO Berman[address] [id number] Information: 425118,X10000 MCV (RBC) [Entitic vol] 90 fL Normal 79-97 [facility]; [facility] Work Phone: Comment on above: PATIENT WAS FASTINGP ERFORMED BY: [facility]6370 [facility] [id number] Information: 273855,[id number] Monocytes (Bld) [#/Vol] 0.7 {x10E3/uL} Normal 0.1-0.9 [facility]; [facility] Work Phone: Comment on above: PATIENT WAS FASTINGP ERFORMED BY: [place] 1919870 [facility] [id number] Information: 743502,M66241 Monocytes (Bld) [#/Vol] 0.7 10*3/uL Normal 0.1-0.9 [facility]; [facility] Work Phone: Comment on above: PATIENT WAS FASTINGP ERFORMED BY: DONATO Singh6370 [facility] [id number] Information: 711797,[id number] Monocytes/100 WBC (Bld) 8 % Normal [facility]; [facility] Work Phone: Comment on above: PATIENT WAS FASTINGP ERFORMED BY: [facility]6370 [facility] [id number] Information: 843718,G03939 Neutrophils (Bld) [#/Vol] 3.6 {x10E3/uL} Normal 1.4-7.0 [facility]; [facility] Work Phone: Comment on above: PATIENT WAS FASTINGP ERFORMED BY: [facility] Dzoqac7905 [facility] [id number] Information: 583853,[id number] Neutrophils (Bld) [#/Vol] 3.6 10*3/uL Normal 1.4-7.0 [facility]; [facility] Work Phone: Comment on above: PATIENT WAS FASTINGP ERFORMED BY: [facility] Wlbmku3046 [facility] [id number] Information: 765449,J59220 Neutrophils/100 WBC (Bld) 45 % Normal [facility]; [facility] Work Phone: Comment on above: PATIENT WAS FASTINGP ERFORMED BY: [facility] Dxjghx4737 [facility] [id number] Information: 733083,S63746 Platelets (Bld) [#/Vol] 258 {x10E3/uL} Normal 150-379 [facility]; [facility] Work Phone: Comment on above: PATIENT WAS FASTINGP ERFORMED BY: [facility] Kslfyf7516 [facility] [id number] Information: 469226,[id number] Platelets (Bld) [#/Vol] 258 10*3/uL Normal 150-379 [facility]; [facility] Work Phone: Comment on above: PATIENT WAS FASTINGP ERFORMED BY: DONATO Ninfa Singh6370 [facility] [id number] Information: 693316,E71640 RBC (Bld) [#/Vol] 5.19 {x10E6/uL} Normal 4.14-5.80 [facility] Internal Medicine; [facility] Work Phone: Comment on above: PATIENT WAS FASTINGP ERFORMED BY: DONATO Demian Rswdip6392 [facility] [id number] Information: 774827,Z90111 RBC (Bld) [#/Vol] 5.19 10*6/uL Normal 4.14-5.80 [facility] Internal Medicine; [facility] Work Phone: Comment on above: PATIENT WAS FASTINGP ERFORMED BY: DONATO [facility] Vigfsr9304 [facility] [id number] Information: 790107,[id number] WBC (Bld) [#/Vol] 8.3 {x10E3/uL} Normal 3.4-10.8 [facility] Internal Medicine; [facility] Work Phone: Comment on above: PATIENT WAS FASTINGP ERFORMED BY: DONATO [facility] Kyfsgp3703 [facility] [id number] Information: 919224,Z66846 WBC (Bld) [#/Vol] 8.3 10*3/uL Normal 3.4-10.8 [facility] Internal Medicine; [facility] Work Phone: Comment on above: PATIENT WAS FASTINGP ERFORMED BY: DONATO [facility] Divwud5556 [facility] [id number] Information: 037445,[id number] LIPID PANEL (77078)Ordered B y: 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 on 07-27-2014 Cholesterol [Mass/Vol] 252 mg/dL Abnormal 100-199 [facility] Internal Medicine; [facility] Work Phone: Comment on above: PATIENT WAS FASTINGP ERFORMED BY: DONATO CullenSofiya FerrerLtqxel[address] [place] [id number] Cholesterol in HDL [Mass/Vol] 42 mg/dL Normal [facility]; [facility] Work Phone: Comment on above: According to ATP-III Guidelines, HDL-C >59 mg/dL is considered anegative risk factor for CHD. PATIENT WAS FASTINGP ERFORMED BY: DONATO LabSofiya FerrerVymnpk8[address] [place]ards[place]in [place] [id number] Cholesterol in LDL [Mass/Vol] 156 mg/dL Abnormal 0-99 [facility]; [facility] Work Phone: Comment on above: PATIENT WAS FASTINGP ERFORMED BY: DONATO Ferrerlin[address] [facility] [id number] Cholesterol in LDL/Cholesterol in HDL [Mass ratio] 3.7 {ratio_units} Abnormal 0.0-3.6 [facility]; [facility] Work Phone: Comment on above: LDL/HDL Ratio Men Wo men 1/2 Avg.Risk 1.0 1.5 Avg.Risk 3.6 3.2 2X Avg.Risk 6.2 5.0 3X Avg.Risk 8.0 6.1 PATIENT WAS FASTINGP ERFORMED BY: DONATO LabSofiya FerrerZjmlbx4065 [facility] [id number] Cholesterol in VLDL [Mass/Vol] 54 mg/dL Abnormal 5-40 [facility]; [facility] Work Phone: Comment on above: PATIENT WAS FASTINGP ERFORMED BY: DONATO LabCojaycee Ywwpho[address] [place] [id number] Triglyceride [Mass/Vol] 268 mg/dL Abnormal 0-149 [facility]; [facility] Work Phone: Comment on above: PATIENT WAS FASTINGP ERFORMED BY: DONATO LabCojaycee Zmktbi6[address] [facility]od[facility]Psych[facility] hospital [id number] METABOLIC PANEL, COMPREHENSI VE (28468)Ordered By: 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 on 07-27-2014 Albumin [Mass/Vol] 4.4 g/dL Normal 3.5-5.5 [facility] Internal Medicine; [facility] Work Phone: Comment on above: PATIENT WAS FASTINGP ERFORMED BY: DONATO [facility] Phxxsq7921 Mal[address]ado RoadDublin [place] [id number] Albumin/Globulin [Mass ratio] 1.6 {ratio} Normal 1.1-2.5 [facility]; [facility] Work Phone: Comment on above: PATIENT WAS FASTINGP ERFORMED BY: CB [facility] Egmktc1636 [address] RoadDublin [place] [id number] ALP [Catalytic activity/Vol] 56 [iU]/L Normal 39-117 [facility]; [facility] Work Phone: Comment on above: PATIENT WAS FASTINGP ERFORMED BY: DONATO [facility] Jenopi2799 [address] RoadDublin [place] [id number] ALP [Catalytic activity/Vol] 56 U/L Normal 39-117 [facility]; [facility] Work Phone: Comment on above: PATIENT WAS FASTINGP ERFORMED BY: DONATO [facility] Aauooe6249 [address] RoadDublin [place] [id number] ALT [Catalytic activity/Vol] 73 [iU]/L Abnormal 0-44 [facility]; [facility] Work Phone: Comment on above: PATIENT WAS FASTINGP ERFORMED BY: CB [facility] Dsypnv0202 [address] RoadDublin [place] [id number] ALT [Catalytic activity/Vol] 73 U/L Abnormal 0-44 [facility]; [facility] Work Phone: Comment on above: PATIENT WAS FASTINGP ERFORMED BY: CB [facility] Risbwm4918 [address] RoadDublin [place] [id number] AST [Catalytic activity/Vol] 39 [iU]/L Normal 0-40 [facility]; [facility] Work Phone: Comment on above: PATIENT WAS FASTINGP ERFORMED BY: CB [facility] Dzqffm5409 [address] RoadDublin [place] [id number] AST [Catalytic activity/Vol] 39 U/L Normal 0-40 [facility]; [facility] Work Phone: Comment on above: PATIENT WAS FASTINGP ERFORMED BY: LabRoss Okyypw6435 [address] RoadDublin [place] [id number] Bilirubin [Mass/Vol] 0.3 mg/dL Normal 0.0-1.2 [facility] rehensive Internal Medicine; [facility] Work Phone: Comment on above: PATIENT WAS FASTINGP ERFORMED BY: [facility] Aqzktt8930 [address] Roadblin [place] [id number] Calcium [Mass/Vol] 9.4 mg/dL Normal 8.7-10.2 [facility] Internal [facility]; [facility] Work Phone: Comment on above: PATIENT WAS FASTINGP ERFORMED BY: [facility] Wpyhxd1835 [address] Roadblin [place] [id number] Chloride [Moles/Vol] 99 mmol/L Normal 97-108 [facility] rehensive Internal Medicine; [facility] Work Phone: Comment on above: PATIENT WAS FASTINGP ERFORMED BY: [facility]Fre[facility] Rgrcme8766 [address] Roadblin [place] [id number] CO2 [Moles/Vol] 23 mmol/L Normal 18-[address] [facility] Internal Medicine; [facility] Work Phone: Comment on above: PATIENT WAS FASTINGP ERFORMED BY: [facility]Fre[facility] Bbvizx7937 [address] RoadCritical Access Hospitalin [place] [id number] Creatinine [Mass/Vol] 0.92 mg/dL Normal 0.76-1.27 [facility]; [facility] Work Phone: Comment on above: PATIENT WAS FASTINGP ERFORMED BY: LabCo Zkggwt3733 [address] Roadblin [place] [id number] GFR/1.73 sq M predicted among blacks CKD-EPI (S/P/Bld) [Vol rate/Area] 117 mL/min/1.73 Normal [facility]; [facility] Work Phone: Comment on above: PATIENT WAS FASTINGP ERFORMED BY: DONATO [facility] Zgvaye9040 [address] RoadDublin [place] [id number] GFR/1.73 sq M predicted among non-blacks CKD-EPI (S/P/Bld) [Vol rate/Area] 102 mL/min/1.73 Normal [facility]; [facility] Work Phone: Comment on above: PATIENT WAS FASTINGP ERFORMED BY: CB [facility] Uxdhzh9741 [address] RoadDublin [place] [id number] Globulin (S) [Mass/Vol] 2.8 g/dL Normal 1.5-4.5 [facility] Internal Medicine; [facility] Work Phone: Comment on above: PATIENT WAS FASTINGP ERFORMED BY: DONATO [facility] Zocvag8577 [address] RoadDublin [place] [id number] Glucose [Mass/Vol] 98 mg/dL Normal 65-99 [facility] Internal Medicine; [facility] Work Phone: Comment on above: PATIENT WAS FASTINGP ERFORMED BY: DONATO [facility] Lqowra3339 [address] RoadDublin [place] [id number] Potassium [Moles/Vol] 4.7 mmol/L Normal 3.5-5.2 [facility] prehensive Internal Medicine; [facility] Work Phone: Comment on above: PATIENT WAS FASTINGP ERFORMED BY: CB [facility] Fsswte4810 [address] RoadDublin [place] [id number] Protein [Mass/Vol] 7.2 g/dL Normal 6.0-8.5 [facility] Internal Medicine; [facility] Work Phone: Comment on above: PATIENT WAS FASTINGP ERFORMED BY: CB [facility] Bezmxm1184 [address] RoadDublin [place] [id number] Sodium [Moles/Vol] 141 mmol/L Normal 134-144 [facility] Internal Medicine; [facility] Work Phone: Comment on above: PATIENT WAS FASTINGP ERFORMED BY: CB [facility] Rwscci0022 [address] RoadDublin [place] [id number] Urea nitrogen [Mass/Vol] 13 mg/dL Normal 6-24 [facility]; [facility] Work Phone: Comment on above: PATIENT WAS FASTINGP ERFORMED BY: DONATO [employer] Gsuqyb9218 [facility] [id number] Urea nitrogen/Creatinine [Mass ratio] 14 mg/mg Normal 9-20 [facility]; [facility] Work Phone: Comment on above: PATIENT WAS FASTINGP ERFORMED BY: [employer] Hrxbel2976 [facility] [id number] Uric Acid Blood (29087)Order ed By: 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 on 07-27-2014 Urate [Mass/Vol] 9.0 mg/dL Abnormal 3.7-8.6 Compre[facility] Internal Medicine; [facility] Work Phone: Comment on above: Therapeutic target f or gout patients: <6.0 PATIENT WAS FASTINGP ERFORMED BY: [employer] Fegoke1197 [facility] [id number] Valproic Acid (86893)Ordered By: 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 on 07-27-2014 Valproate [Mass/Vol] 58 ug/mL Normal 50-100 [facility] Internal Medicine; [facility] Work Phone: Comment on above: Detection Limit = 4 <4 indicates None Detected . Toxicity may occur at levels of 100-500. Measurements of free unbound valproic acid may improve the assess- ment of clinical response. PATIENT WAS FASTINGP ERFORMED BY: [employer] Yinjrs8389 [facility] [id number] HgA1C , Office (51856)Ordere d By: Mini Romero on 04-21-2013 HbA1c (Bld) [Mass fraction] 5.8 % Normal 4.6 - 7.1 [facility]; [facility] Work Phone: HEPATIC FUNCTION PANEL (8007 6)Ordered By: 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 on 04-17-2013 Albumin [Mass/Vol] 4.3 g/dL Normal 3.5-5.5 Compre [facility] Internal Medicine; [facility] Work Phone: Comment on above: in three months (jairo roximately); PATIENT WAS FASTINGPERFORMED BY: CB [facility] Scimcb7196 [address] RoadDublin [place] [id number] ALP [Catalytic activity/Vol] 64 [iU]/L Normal 39-117 [facility]; [facility] Work Phone: Comment on above: in three months (jairo roximately); PATIENT WAS FASTINGPERFORMED BY: CB [facility] Jxptxr8334 [address] RoadDublin [place] [id number] ALP [Catalytic activity/Vol] 64 U/L Normal 39-117 [facility]; [facility] Work Phone: Comment on above: in three months (jairo roximately); PATIENT WAS FASTINGPERFORMED BY: CB [facility] Yquqly3584 [address] RoadDublin [place] [id number] ALT [Catalytic activity/Vol] 58 [iU]/L Abnormal 0-44 [facility]; [facility] Work Phone: Comment on above: in three months (jairo roximately); PATIENT WAS FASTINGPERFORMED BY: CB [facility] Ighxhc4162 [address] RoadDublin [place] [id number] ALT [Catalytic activity/Vol] 58 U/L Abnormal 0-44 [facility]; [facility] Work Phone: Comment on above: in three months (jairo roximately); PATIENT WAS FASTINGPERFORMED BY: CB [facility] Avvanb5186 [address] RoadDublin [place] [id number] AST [Catalytic activity/Vol] 30 [iU]/L Normal 0-40 [facility]; [facility] Work Phone: Comment on above: in three months (jairo roximately); PATIENT WAS FASTINGPERFORMED BY: CB [facility] Wmkhil9018 [address] RoadDublin [place] [id number] AST [Catalytic activity/Vol] 30 U/L Normal 0-40 [facility]; [facility] Work Phone: Comment on above: in three months (jairo roximately); PATIENT WAS FASTINGPERFORMED BY: CB [facility] Iyrgvh50[address] [facility] [id number] Bilirubin [Mass/Vol] 0.3 mg/dL Normal 0.0-1.2 [facility] Internal Medicine; [facility] Work Phone: Comment on above: in three months (jairo roximately); PATIENT WAS FASTINGPERFORMED BY: CB [facility] Fhcczu5664 [address] RoadDublin [place] [id number] Bilirubin.direct [Mass/Vol] 0.09 mg/dL Normal 0.00-0.40 [facility]; [facility] Work Phone: Comment on above: in three months (jairo roximately); PATIENT WAS FASTINGPERFORMED BY: CB [facility] Ngqerx[address] [facility]in [place] [id number] Protein [Mass/Vol] 7.1 g/dL Normal 6.0-8.5 [facility] Internal Medicine; [facility] Work Phone: Comment on above: in three months (jairo roximately); PATIENT WAS FASTINGPERFORMED BY: CB [facility] Wpxdst1765 [address] [facility] [id number] LIPID PANEL (88264)Ordered B y: 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 on 04-17-2013 Cholesterol [Mass/Vol] 210 mg/dL Abnormal 100-199 [facility] Internal Medicine; [facility] Work Phone: Comment on above: in three months (jairo roximately); PATIENT WAS FASTINGPERFORMED BY: CB [facility] Kbsloa[address] [facility] [id number] Information: [id number] Cholesterol in HDL [Mass/Vol] 45 mg/dL Normal [facility]; [facility] Work Phone: Comment on above: According to ATP-III Guidelines, HDL-C >59 mg/dL is considered anegative risk factor for CHD. in three months (jairo roximately); PATIENT WAS FASTINGPERFORMED BY: CB [facility] Qdpnis43[address] [facility] [id number] Information: [id number],[id number] Cholesterol in LDL [Mass/Vol] 120 mg/dL Abnormal 0-99 [facility]; [facility] Work Phone: Comment on above: in three months (jairo roximately); PATIENT WAS FASTINGPERFORMED BY: DONATO LabCojaycee FerrerTupbii4249 [facility] [id number] Information: [id number] Cholesterol in LDL/Cholesterol in HDL [Mass ratio] 2.7 {ratio_units} Normal 0.0-3.6 [facility]; [facility] Work Phone: Comment on above: in three months (jairo roximately); PATIENT WAS FASTINGPERFORMED BY: DONATO [facility] Qbyffw5877 [facility] [id number] Information: [id number] Cholesterol in VLDL [Mass/Vol] 45 mg/dL Abnormal 5-40 [facility]; [facility] Work Phone: Comment on above: in three months (jairo roximately); PATIENT WAS FASTINGPERFORMED BY: DONATO [facility] Vzipfa8988 [facility] [id number] Information: [id number] Triglyceride [Mass/Vol] 225 mg/dL Abnormal 0-149 [facility]; [facility] Work Phone: Comment on above: in three months (jairo roximately); PATIENT WAS FASTINGPERFORMED BY: DONATO [facility] Lyumtl6091 [facility] [id number] Information: [id number] HEPATIC FUNCTION PANEL (8007 6)Ordered By: 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 on 04-14-2013 Albumin [Mass/Vol] 4.8 g/dL Normal 3.5-5.5 [facility] Internal Medicine; [facility] Work Phone: Comment on above: PATIENT NOT FASTINGP ERFORMED BY: DONATO [facility] Pyvevy4898 [facility] [id number] Information: [id number] ALP [Catalytic activity/Vol] 65 [iU]/L Normal 39-117 [facility]; [facility] Work Phone: Comment on above: PATIENT NOT FASTINGP ERFORMED BY: DONATO Singh6370 Erica Griffithin [place] [id number] Information: [id number] ALP [Catalytic activity/Vol] 65 U/L Normal 39-117 [facility]; [facility] Work Phone: Comment on above: PATIENT NOT FASTINGP ERFORMED BY: DONATO Singh6[address] GladisFormerly [facility] [id number] Information: [id number] ALT [Catalytic activity/Vol] 62 [iU]/L Abnormal 0-44 [facility]; [facility] Work Phone: Comment on above: PATIENT NOT FASTINGP ERFORMED BY: DONATO Singh6370 Erica GriffithFormerly [facility] [id number] Information: [id number] ALT [Catalytic activity/Vol] 62 U/L Abnormal 0-44 [facility]; [facility] Work Phone: Comment on above: PATIENT NOT FASTINGP ERFORMED BY: DONATO Singh6370 Erica GriffithFormerly [facility] [id number] Information: [id number] AST [Catalytic activity/Vol] 35 [iU]/L Normal 0-40 [facility]; [facility] Work Phone: Comment on above: PATIENT NOT FASTINGP ERFORMED BY: DONATO Ferrerlin6[address] [facility] [id number] Information: [id number] AST [Catalytic activity/Vol] 35 U/L Normal 0-40 [facility]; [facility] Work Phone: Comment on above: PATIENT NOT FASTINGP ERFORMED BY: DONATO Ferrerlin6[address] [facility] [place] [id number] Information: [id number] Bilirubin [Mass/Vol] 0.5 mg/dL Normal 0.0-1.2 [facility]; [facility] Work Phone: Comment on above: PATIENT NOT FASTINGP ERFORMED BY: DONATO Bernal [address] [facility] [id number] Information: [id number] Bilirubin.direct [Mass/Vol] 0.13 mg/dL Normal 0.00-0.40 [facility]; [facility] Work Phone: Comment on above: PATIENT NOT FASTINGP ERFORMED BY: DONATO Bernal [facility] [id number] Information: [id number] Protein [Mass/Vol] 7.6 g/dL Normal 6.0-8.5 Compre hensive Internal Medicine; [facility] Work Phone: Comment on above: PATIENT NOT FASTINGP ERFORMED BY: DONATO Singh6370 [facility] [id number] Information: [id number] HEPATITIS PANEL (23684)Order ed By: 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 on 04-14-2013 HAV IgM IA Ql Negative Normal Comprehensi ve Internal Medicine; [facility] Work Phone: Comment on above: PATIENT NOT FASTINGP ERFORMED BY: DONATO Bernal [facility] [id number] HAV IgM IA Ql Negative Normal Comprehensi ve Internal Medicine; [facility] Work Phone: Comment on above: PATIENT NOT FASTINGP ERFORMED BY: DONATO Singh6370 [facility] [id number] HBV core IgM IA Ql Negative Normal Compre hensive Internal Medicine; [facility] Work Phone: Comment on above: PATIENT NOT FASTINGP ERFORMED BY: DONATO Ferrerlin6[address] [facility] [id number] HBV core IgM IA Ql Negative Normal Compre hensive Internal Medicine; [facility] Work Phone: Comment on above: PATIENT NOT FASTINGP ERFORMED BY: DONATO Ferrerlin6[address] [facility] [id number] HBV surface Ag IA Ql Negative Normal Comp rehensive Internal Medicine; [facility] Work Phone: Comment on above: PATIENT NOT FASTINGP ERFORMED BY: [facility]6370 [facility] [id number] HBV surface Ag IA Ql Negative Normal Comp rehensive Internal Medicine; [facility] Work Phone: Comment on above: PATIENT NOT FASTINGP ERFORMED BY: [facility]6370 [facility] [id number] HCV Ab Signal/Cutoff IA [Rel units/Vol] {ratio} Normal 0.0-0.9 [facility]; [facility] Work Phone: Comment on above: Negative: < 0.8 Inde terminate 0.8 - 0.9 Positive: > 0.9 . In order to reduce the incidence of a false positive result, the [facility] recommends that all s/co ratios between 1.0 and 10.9 be confirmed by a more specific supplemental or PCR testing. [facility] offers HCV Ab w/Reflex to Verification test #[id number]. PATIENT NOT FASTINGP ERFORMED BY: [facility]6370 [facility] [id number] HCV Ab Signal/Cutoff IA [Rel units/Vol] {ratio} Normal 0.0-0.9 [facility]; [facility] Work Phone: Comment on above: Negative: < 0.8 Inde terminate 0.8 - 0.9 Positive: > 0.9 . In order to reduce the incidence of a false positive result, the [facility] recommends that all s/co ratios between 1.0 and 10.9 be confirmed by a more specific supplemental or PCR testing. [facility] offers HCV Ab w/Reflex to Verification test #[id number]. PATIENT NOT FASTINGP ERFORMED BY: [facility]6370 [facility] [id number] Valproic Acid (53255)Ordered By: 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 on 04-14-2013 Valproate [Mass/Vol] 67 ug/mL Normal 50-100 Comp rehensive Internal Medicine; [facility] Work Phone: Comment on above: Detection Limit = 4 <4 indicates None Detected . Toxicity may occur at levels of 100-500. Measurements of free unbound valproic acid may improve the assess- ment of clinical response. PATIENT NOT FASTINGP ERFORMED BY: [employer] Nvszaa4121 [facility] [id number] HgA1C , Office (69131)Ordere d By: Devi Valdes on 01-26-2013 HbA1c (Bld) [Mass fraction] 5.6 % Normal 4.6 - 7.1 [facility]; [facility] Work Phone: CBC WITH MANUAL DIFF (69938) Ordered By: 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 on 01-20-2013 Basophils (Bld) [#/Vol] 0.0 {x10E3/uL} Normal 0.0-0.2 [facility]; [facility] Work Phone: Comment on above: PATIENT WAS FASTINGP ERFORMED BY: [employer] Zgvpoq7994 [facility] [id number] Information: ADD [id number] AND DRAW FEE 99 6660 Basophils (Bld) [#/Vol] 0.0 10*3/uL Normal 0.0-0.2 [facility]; [facility] Work Phone: Comment on above: PATIENT WAS FASTINGP ERFORMED BY: [employer] Llupoy3364 [facility] [id number] Information: ADD [id number] AND DRAW FEE 99 6660 Basophils/100 WBC (Bld) 0 % Normal 0-3 [facility]; [facility] Work Phone: Comment on above: PATIENT WAS FASTINGP ERFORMED BY: [employer] Abnhnu1761 [facility] [id number] Information: ADD [id number] AND DRAW FEE 99 6660 Eosinophils (Bld) [#/Vol] 0.2 {x10E3/uL} Normal 0.0-0.4 [facility]; [facility] Work Phone: Comment on above: PATIENT WAS FASTINGP ERFORMED BY: [employer] Wfpvtl4162 [facility] [id number] Information: ADD [id number] AND DRAW FEE 99 6660 Eosinophils (Bld) [#/Vol] 0.2 10*3/uL Normal 0.0-0.4 [facility]; [facility] Work Phone: Comment on above: PATIENT WAS FASTINGP ERFORMED BY: [facility] Fivfjy7595 [facility] [id number] Information: ADD [id number] AND DRAW FEE 99 6660 Eosinophils/100 WBC (Bld) 3 % Normal 0-5 [facility]; [facility] Work Phone: Comment on above: PATIENT WAS FASTINGP ERFORMED BY: [address] [id number] Information: ADD Q56694 AND DRAW FEE 99 6660 Erythrocyte distribution width (RBC) [Ratio] 13.3 % Normal 12.3-15.4 [facility]; [facility] Work Phone: Comment on above: PATIENT WAS FASTINGP ERFORMED BY: [address] [id number] Information: ADD [id number] AND DRAW FEE 99 6660 Hematocrit (Bld) [Volume fraction] 45.6 % Normal 37.5-51.0 [facility]; [facility] Work Phone: Comment on above: PATIENT WAS FASTINGP ERFORMED BY: [address] [id number] Information: ADD X66861 AND DRAW FEE 99 6660 Hemoglobin (Bld) [Mass/Vol] 15.2 g/dL Normal 12.6-17.7 [facility]; [facility] Work Phone: Comment on above: PATIENT WAS FASTINGP ERFORMED BY: [address] [id number] Information: ADD [id number] AND DRAW FEE 99 6660 Immature granulocytes (Bld) [#/Vol] 0.0 {x10E3/uL} Normal 0.0-0.1 [facility]; [facility] Work Phone: Comment on above: PATIENT WAS FASTINGP ERFORMED BY: [facility]6370 [facility] [id number] Information: ADD X70803 AND DRAW FEE 99 6660 Immature granulocytes (Bld) [#/Vol] 0.0 10*3/uL Normal 0.0-0.1 [facility]; [facility] Work Phone: Comment on above: PATIENT WAS FASTINGP ERFORMED BY: [address] [id number] Information: ADD [id number] AND DRAW FEE 99 6660 Immature granulocytes/100 WBC (Bld) 0 % Normal 0-2 [facility]; [facility] Work Phone: Comment on above: PATIENT WAS FASTINGP ERFORMED BY: [facility] Prhjwj[address] [id number] Information: ADD A50751 AND DRAW FEE 99 6660 Lymphocytes (Bld) [#/Vol] 2.9 {x10E3/uL} Normal 0.7-3.1 [facility]; [facility] Work Phone: Comment on above: PATIENT WAS FASTINGP ERFORMED BY: [facility] Lxnpcx95[address] [id number] Information: ADD [id number] AND DRAW FEE 99 6660 Lymphocytes (Bld) [#/Vol] 2.9 10*3/uL Normal 0.7-3.1 [facility]; [facility] Work Phone: Comment on above: PATIENT WAS FASTINGP ERFORMED BY: [place] 1919870 [facility] [id number] Information: ADD E45863 AND DRAW FEE 99 6660 Lymphocytes/100 WBC (Bld) 39 % Normal 14-46 [facility]; [facility] Work Phone: Comment on above: PATIENT WAS FASTINGP ERFORMED BY: [place] 1919870 [facility] [id number] Information: ADD D07751 AND DRAW FEE 99 6660 MCH (RBC) [Entitic mass] 30.3 pg Normal 26.6-33.0 [facility]; [facility] Work Phone: Comment on above: PATIENT WAS FASTINGP ERFORMED BY: DONATO Singh6370 [facility] [id number] Information: ADD [id number] AND DRAW FEE 99 6660 MCHC (RBC) [Mass/Vol] 33.3 g/dL Normal 31.5-35.7 [facility] prehensive Internal Medicine; [facility] Work Phone: Comment on above: PATIENT WAS FASTINGP ERFORMED BY: DONATO Ferrer[address] [id number] Information: ADD [id number] AND DRAW FEE 99 6660 MCV (RBC) [Entitic vol] 91 fL Normal 79-97 [facility]; [facility] Work Phone: Comment on above: PATIENT WAS FASTINGP ERFORMED BY: DONATO Ferrer[address] [id number] Information: ADD [id number] AND DRAW FEE 99 6660 Monocytes (Bld) [#/Vol] 0.8 {x10E3/uL} Normal 0.1-0.9 [facility]; [facility] Work Phone: Comment on above: PATIENT WAS FASTINGP ERFORMED BY: DONATO Ferrer[address] [id number] Information: ADD Z16768 AND DRAW FEE 99 6660 Monocytes (Bld) [#/Vol] 0.8 10*3/uL Normal 0.1-0.9 [facility]; [facility] Work Phone: Comment on above: PATIENT WAS FASTINGP ERFORMED BY: DONATO Ferrer[address] [id number] Information: ADD [id number] AND DRAW FEE 99 6660 Monocytes/100 WBC (Bld) 11 % Normal 4-12 [facility]; [facility] Work Phone: Comment on above: PATIENT WAS FASTINGP ERFORMED BY: DONATO Ocasio Ufqprt9265 [facility] [id number] Information: ADD D30066 AND DRAW FEE 99 6660 Neutrophils (Bld) [#/Vol] 3.5 {x10E3/uL} Normal 1.4-7.0 [facility]; [facility] Work Phone: Comment on above: PATIENT WAS FASTINGP ERFORMED BY: DONATO [facility] Ankqvo2249 [facility] [id number] Information: ADD I17303 AND DRAW FEE 99 6660 Neutrophils (Bld) [#/Vol] 3.5 10*3/uL Normal 1.4-7.0 [facility]; [facility] Work Phone: Comment on above: PATIENT WAS FASTINGP ERFORMED BY: DONATO Demian Hmgjfj3159 [facility] [id number] Information: ADD J58728 AND DRAW FEE 99 6660 Neutrophils/100 WBC (Bld) 47 % Normal 40-74 [facility]; [facility] Work Phone: Comment on above: PATIENT WAS FASTINGP ERFORMED BY: DONATO [facility] Rmdftn2090 [facility] [id number] Information: ADD W96064 AND DRAW FEE 99 6660 Platelets (Bld) [#/Vol] 229 {x10E3/uL} Normal 155-379 [facility]; [facility] Work Phone: Comment on above: PATIENT WAS FASTINGP ERFORMED BY: DONATO [facility] Uqevxl9405 [facility] [id number] Information: ADD P63704 AND DRAW FEE 99 6660 Platelets (Bld) [#/Vol] 229 10*3/uL Normal 155-379 [facility]; [facility] Work Phone: Comment on above: PATIENT WAS FASTINGP ERFORMED BY: DONATO [facility]Co Kybejs0773 [facility] [id number] Information: ADD Q16478 AND DRAW FEE 99 6660 RBC (Bld) [#/Vol] 5.02 {x10E6/uL} Normal 4.14-5.80 [facility]; [facility] Work Phone: Comment on above: PATIENT WAS FASTINGP ERFORMED BY: DONATO Singh6[address] [facility] [id number] Information: ADD H71972 AND DRAW FEE 99 6660 RBC (Bld) [#/Vol] 5.02 10*6/uL Normal 4.14-5.80 [facility] Internal Medicine; [facility] Work Phone: Comment on above: PATIENT WAS FASTINGP ERFORMED BY: DONATO LabCojaycee SinghBdqtjy5529 [facility] [id number] Information: ADD I53256 AND DRAW FEE 99 6660 WBC (Bld) [#/Vol] 7.4 {x10E3/uL} Normal 3.4-10.8 [facility]; [facility] Work Phone: Comment on above: PATIENT WAS FASTINGP ERFORMED BY: DONATO Singh6370 [facility] [id number] Information: ADD C38095 AND DRAW FEE 99 6660 WBC (Bld) [#/Vol] 7.4 10*3/uL Normal 3.4-10.8 [facility] Internal Medicine; [facility] Work Phone: Comment on above: PATIENT WAS FASTINGP ERFORMED BY: DONATO [facility] Jleeok7158 [facility] [id number] Information: ADD R35425 AND DRAW FEE 99 6660 LIPID PANEL (26963)Ordered B y: 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 on 01-20-2013 Cholesterol [Mass/Vol] 217 mg/dL Abnormal 100-199 [facility] Internal Medicine; [facility] Work Phone: Comment on above: PATIENT WAS FASTINGP ERFORMED BY: DONATO [facility] Kxbgaz0767 [facility] [id number] Cholesterol in HDL [Mass/Vol] 36 mg/dL Abnormal [facility]; [facility] Work Phone: Comment on above: According to ATP-III Guidelines, HDL-C >59 mg/dL is considered anegative risk factor for CHD. PATIENT WAS FASTINGP ERFORMED BY: CB [facility] Gfwpqb0857 [address]ado RoadDublin [place] [id number] Cholesterol in LDL [Mass/Vol] 129 mg/dL Abnormal 0-99 [facility]; [facility] Work Phone: Comment on above: PATIENT WAS FASTINGP ERFORMED BY: CB [facility] Whqyya6220 [address]donado RoadDublin [place] [id number] Cholesterol in LDL/Cholesterol in HDL [Mass ratio] 3.6 {ratio_units} Normal 0.0-3.6 [facility]; [facility] Work Phone: Comment on above: PATIENT WAS FASTINGP ERFORMED BY: CB [facility] Isttev9257 [address] RoadDublin [place] [id number] Cholesterol in VLDL [Mass/Vol] 52 mg/dL Abnormal 5-40 [facility]; [facility] Work Phone: Comment on above: PATIENT WAS FASTINGP ERFORMED BY: CB [facility] Wabjxo2177 [address] RoadDublin [place] [id number] Triglyceride [Mass/Vol] 262 mg/dL Abnormal 0-149 [facility]; [facility] Work Phone: Comment on above: PATIENT WAS FASTINGP ERFORMED BY: CB [facility] Snsswn5978 [address]ado RoadDublin [place] [id number] METABOLIC PANEL, COMPREHENSI VE (36147)Ordered By: 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 on 01-20-2013 Albumin [Mass/Vol] 4.2 g/dL Normal 3.5-5.5 [facility] Internal [facility]; [facility] Work Phone: Comment on above: PATIENT WAS FASTINGP ERFORMED BY: CB [facility] Ppcwky2588 [address]ado RoadDublin [place] [id number] Albumin/Globulin [Mass ratio] 1.7 {ratio} Normal 1.1-2.5 [facility]; [facility] Work Phone: Comment on above: PATIENT WAS FASTINGP ERFORMED BY: CB [facility] Yjsvqx4603 [address] RoadDublin [place] [id number] ALP [Catalytic activity/Vol] 62 [iU]/L Normal 44-102 [facility]; [facility] Work Phone: Comment on above: PATIENT WAS FASTINGP ERFORMED BY: DONATO Ninfa Xwsxaf4460 [address] RoadDublin [place] [id number] ALP [Catalytic activity/Vol] 62 U/L Normal 44-102 [facility]; [facility] Work Phone: Comment on above: PATIENT WAS FASTINGP ERFORMED BY: DONATO [facility] Phtuxj8530 [address] RoadDublin [place] [id number] ALT [Catalytic activity/Vol] 75 [iU]/L Abnormal 0-44 [facility]; [facility] Work Phone: Comment on above: PATIENT WAS FASTINGP ERFORMED BY: DONATO LabCojaycee Igjjis3974 [address] RoadDublin [place] [id number] ALT [Catalytic activity/Vol] 75 U/L Abnormal 0-44 [facility]; [facility] Work Phone: Comment on above: PATIENT WAS FASTINGP ERFORMED BY: DONATO [facility] Ahyvca0177 [address] RoadDublin [place] [id number] AST [Catalytic activity/Vol] 32 [iU]/L Normal 0-40 [facility]; [facility] Work Phone: Comment on above: PATIENT WAS FASTINGP ERFORMED BY: DONATO [facility] Jwaiwb3578 [address] RoadDublin [place] [id number] AST [Catalytic activity/Vol] 32 U/L Normal 0-40 [facility]; [facility] Work Phone: Comment on above: PATIENT WAS FASTINGP ERFORMED BY: DONATO [facility] Zbzfcu6420 [address] RoadDublin [place] [id number] Bilirubin [Mass/Vol] 0.3 mg/dL Normal 0.0-1.2 [facility]; [facility] Work Phone: Comment on above: PATIENT WAS FASTINGP ERFORMED BY: DONATO [facility] Mwaefv2661 [address] RoadDublin [place] [id number] Calcium [Mass/Vol] 9.3 mg/dL Normal 8.7-10.2 [facility] Internal Medicine; [facility] Work Phone: Comment on above: PATIENT WAS FASTINGP ERFORMED BY: CB [facility] Brzfee6267 [address] RoadDublin [place] [id number] Chloride [Moles/Vol] 103 mmol/L Normal 97-108 Comp rehensive Internal Medicine; [facility] Work Phone: Comment on above: PATIENT WAS FASTINGP ERFORMED BY: CB [facility] Saqnqu0763 [address] RoadDublin [place] [id number] CO2 [Moles/Vol] 23 mmol/L Normal 19-[address] [facility] Internal Medicine; [facility] Work Phone: Comment on above: PATIENT WAS FASTINGP ERFORMED BY: CB [facility] Vgitje0033 [address] RoadDublin [place] [id number] Creatinine [Mass/Vol] 0.84 mg/dL Normal 0.76-1.27 [facility]; [facility] Work Phone: Comment on above: PATIENT WAS FASTINGP ERFORMED BY: CB [facility] Pwdwib8923 [address] RoadDublin [place] [id number] GFR/1.73 sq M predicted among blacks CKD-EPI (S/P/Bld) [Vol rate/Area] 126 mL/min/1.73 Normal [facility]; [facility] Work Phone: Comment on above: PATIENT WAS FASTINGP ERFORMED BY: CB [facility] Dbezmy4134 [address] RoadDublin [place] [id number] GFR/1.73 sq M predicted among non-blacks CKD-EPI (S/P/Bld) [Vol rate/Area] 109 mL/min/1.73 Normal [facility]; [facility] Work Phone: Comment on above: PATIENT WAS FASTINGP ERFORMED BY: CB [facility] Nwjofi6672 [address] RoadDublin [place] [id number] Globulin (S) [Mass/Vol] 2.5 g/dL Normal 1.5-4.5 [facility]; [facility] Work Phone: Comment on above: PATIENT WAS FASTINGP ERFORMED BY: DONATO [facility] Vdtxta0141 [address] RoadDublin [place] [id number] Glucose [Mass/Vol] 100 mg/dL Abnormal 65-99 [facility] Internal Medicine; [facility] Work Phone: Comment on above: PATIENT WAS FASTINGP ERFORMED BY: CB [facility] Fccgky9444 [address] RoadDublin [place] [id number] Potassium [Moles/Vol] 4.8 mmol/L Normal 3.5-5.2 [facility]; [facility] Work Phone: Comment on above: PATIENT WAS FASTINGP ERFORMED BY: DONATO [facility] Hvpsja8844 [address] RoadDublin [place] [id number] Protein [Mass/Vol] 6.7 g/dL Normal 6.0-8.5 [facility] Internal Medicine; [facility] Work Phone: Comment on above: PATIENT WAS FASTINGP ERFORMED BY: DONATO [facility] Wsslqg5740 [address] RoadDublin [place] [id number] Sodium [Moles/Vol] 141 mmol/L Normal 134-144 [facility] Internal Medicine; [facility] Work Phone: Comment on above: PATIENT WAS FASTINGP ERFORMED BY: DONATO [facility] Lrygem0590 [address] RoadDublin [place] [id number] Urea nitrogen [Mass/Vol] 15 mg/dL Normal 6-24 [facility] Internal Medicine; [facility] Work Phone: Comment on above: PATIENT WAS FASTINGP ERFORMED BY: DONATO [facility] Tjnhjv0178 [address] RoadDublin [place] [id number] Urea nitrogen/Creatinine [Mass ratio] 18 mg/mg Normal 9-20 [facility]; [facility] Work Phone: Comment on above: PATIENT WAS FASTINGP ERFORMED BY: CB [facility] Saqqfj3532 [address] RoadDublin [place] [id number] Valproic Acid (09477)Ordered By: 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 on 01-20-2013 Valproate [Mass/Vol] 30 ug/mL Abnormal 50-100 [facility]eren[facility]; [facility] Work Phone: Comment on above: Detection Limit = 4 <4 indicates None Detected . Toxicity may occur at levels of 100-500. Measurements of free unbound valproic acid may improve the assess- ment of clinical response. 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 on 11-26-2011 Erythrocyte distribution width (RBC) [Ratio] 13.2 % Normal 12.3-15.4 [facility]; [facility] Work Phone: Comment on above: PATIENT WAS FASTINGP ERFORMED BY: CB [facility] Ihryye[address] [facility] [id number] Hematocrit (Bld) [Volume fraction] 45.9 % Normal 37.5-51.0 [facility]; [facility] Work Phone: Comment on above: PATIENT WAS FASTINGP ERFORMED BY: [facility] Kqyfkq[address] [facility] [place] [id number] Hemoglobin (Bld) [Mass/Vol] 15.5 g/dL Normal 12.6-17.7 [facility]; [facility] Work Phone: Comment on above: PATIENT WAS FASTINGP ERFORMED BY: [facility] Blandy35[address] [facility] [id number] MCH (RBC) [Entitic mass] 30.5 pg Normal 26.6-33.0 [facility]; [facility] Work Phone: Comment on above: PATIENT WAS FASTINGP ERFORMED BY: CB [facility] Zoeeyp56[address]bl[address] [place] [id number] MCHC (RBC) [Mass/Vol] 33.8 g/dL Normal 31.5-35.7 [facility]; [facility] Work Phone: Comment on above: PATIENT WAS FASTINGP ERFORMED BY: CB [facility] Xljdez5916 [address] [facility] [id number] MCV (RBC) [Entitic vol] 90 fL Normal 79-97 [facility]; [facility] Work Phone: Comment on above: PATIENT WAS FASTINGP ERFORMED BY: DONATO LabCojaycee SinghHzsfdp3206 Mal[address] RoadDublin [place] [id number] Platelets (Bld) [#/Vol] 241 {x10E3/uL} Normal 140-415 [facility]; [facility] Work Phone: Comment on above: PATIENT WAS FASTINGP ERFORMED BY: CB [facility] Xdbtwe4962 [address] RoadDublin [place] [id number] Platelets (Bld) [#/Vol] 241 10*3/uL Normal 140-415 [facility]; [facility] Work Phone: Comment on above: PATIENT WAS FASTINGP ERFORMED BY: DONATO [facility] Dlhmfa0054 [address]ado RoadDublin [place] [id number] RBC (Bld) [#/Vol] 5.09 {x10E6/uL} Normal 4.14-5.[address] [facility]; [facility] Work Phone: Comment on above: PATIENT WAS FASTINGP ERFORMED BY: DONATO [facility] Ntsgqt5353 Mal[address] RoadDublin [place] [id number] RBC (Bld) [#/Vol] 5.09 10*6/uL Normal 4.14-5.80 [facility]; [facility] Work Phone: Comment on above: PATIENT WAS FASTINGP ERFORMED BY: CB [facility] Cfddpt2541 [address] RoadDublin [place] [id number] WBC (Bld) [#/Vol] 7.8 {x10E3/uL} Normal 4.0-10.5 [facility]; [facility] Work Phone: Comment on above: PATIENT WAS FASTINGP ERFORMED BY: CB [facility] Gvynkd1967 [address] RoadDublin [place] [id number] WBC (Bld) [#/Vol] 7.8 10*3/uL Normal 4.0-10.5 [facility] Medicine; [facility] Work Phone: Comment on above: PATIENT WAS FASTINGP ERFORMED BY: DONATO [facility] Wkpfer0530 [address] RoadDublin [place] [id number] Lipid Panel ([id number])Ordered B y: 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 on 11-26-2011 Cholesterol [Mass/Vol] 217 mg/dL Abnormal 100-199 [facility]; [facility] Work Phone: Comment on above: PATIENT WAS FASTINGP ERFORMED BY: DONATO [facility] Tntzmv4904 [address] RoadDublin [place] [id number] Cholesterol in HDL [Mass/Vol] 49 mg/dL Normal [facility]; [facility] Work Phone: Comment on above: According to ATP-III Guidelines, HDL-C >59 mg/dL is considered anegative risk factor for CHD. PATIENT WAS FASTINGP ERFORMED BY: DONATO [facility] Qzubup2017 [address] RoadDublin [place] [id number] Cholesterol in LDL [Mass/Vol] 132 mg/dL Abnormal 0-99 [facility]; [facility] Work Phone: Comment on above: PATIENT WAS FASTINGP ERFORMED BY: DONATO LabCojaycee Vmofnf6867 [address] RoadDublin [place] [id number] Cholesterol in LDL/Cholesterol in HDL [Mass ratio] 2.7 {ratio_units} Normal 0.0-3.6 [facility]; [facility] Work Phone: Comment on above: PATIENT WAS FASTINGP ERFORMED BY: CB [facility] Tzufsg4615 [address] RoadDublin [place] [id number] Cholesterol in VLDL [Mass/Vol] 36 mg/dL Normal 5-40 [facility]; [facility] Work Phone: Comment on above: PATIENT WAS FASTINGP ERFORMED BY: DONATO [facility] Slchve3788 [address] RoadDublin [place] [id number] Triglyceride [Mass/Vol] 182 mg/dL Abnormal 0-149 [facility]; [facility] Work Phone: Comment on above: PATIENT WAS FASTINGP ERFORMED BY: DONATO [facility] Pgtnog3956 [address] RoadDuh[facility] [place] [id number] Metabolic Panel, Comprehensi ve ([id number])Ordered By: 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 on 11-26-2011 Albumin [Mass/Vol] 4.5 g/dL Normal 3.5-5.5 [facility] Internal Medicine; [facility] Work Phone: Comment on above: PATIENT WAS FASTINGP ERFORMED BY: [place] [id number] [facility] [id number] Information: ADD [id number] AND DRAW FEE 99 6660 Albumin/Globulin [Mass ratio] 1.7 {ratio} Normal 1.1-2.5 [facility]; [facility] Work Phone: Comment on above: PATIENT WAS FASTINGP ERFORMED BY: DONATO Demian Vmvgpx5623 [facility] [id number] Information: ADD [id number] AND DRAW FEE 99 6660 ALP [Catalytic activity/Vol] 60 [iU]/L Normal 25-150 [facility]; [facility] Work Phone: Comment on above: PATIENT WAS FASTINGP ERFORMED BY: DONATO [place]ullenA[place] [id number] [facility] [id number] Information: ADD [id number] AND DRAW FEE 99 6660 ALP [Catalytic activity/Vol] 60 U/L Normal 25-150 [facility]; [facility] Work Phone: Comment on above: PATIENT WAS FASTINGP ERFORMED BY: DONATO [place]ullenA[place] [id number] [facility] [id number] Information: ADD [id number] AND DRAW FEE 99 6660 ALT [Catalytic activity/Vol] 53 [iU]/L Normal 0-55 [facility]; [facility] Work Phone: Comment on above: PATIENT WAS FASTINGP ERFORMED BY: [facility]Fre[facility] Ghdbvl4941 [facility] [id number] Information: ADD [id number] AND DRAW FEE 99 6660 ALT [Catalytic activity/Vol] 53 U/L Normal 0-55 [facility]; [facility] Work Phone: Comment on above: PATIENT WAS FASTINGP ERFORMED BY: [place] [id number] [facility] [id number] Information: ADD [id number] AND DRAW FEE 99 6660 AST [Catalytic activity/Vol] 30 [iU]/L Normal 0-40 [facility]; [facility] Work Phone: Comment on above: PATIENT WAS FASTINGP ERFORMED BY: [place] [id number] [facility] [id number] Information: ADD [id number] AND DRAW FEE 99 6660 AST [Catalytic activity/Vol] 30 U/L Normal 0-40 [facility]; [facility] Work Phone: Comment on above: PATIENT WAS FASTINGP ERFORMED BY: [address] [id number] Information: ADD [id number] AND DRAW FEE 99 6660 Bilirubin [Mass/Vol] 0.5 mg/dL Normal 0.0-1.2 Comp rehensive Internal Medicine; [facility] Work Phone: Comment on above: PATIENT WAS FASTINGP ERFORMED BY: [address] [id number] Information: ADD [id number] AND DRAW FEE 99 6660 Calcium [Mass/Vol] 9.6 mg/dL Normal 8.7-10.2 [facility] Internal Medicine; [facility] Work Phone: Comment on above: PATIENT WAS FASTINGP ERFORMED BY: [address] [id number] Information: ADD [id number] AND DRAW FEE 99 6660 Chloride [Moles/Vol] 103 mmol/L Normal 97-108 Comp rehensive [facility] Medicine; [facility] Work Phone: Comment on above: PATIENT WAS FASTINGP ERFORMED BY: LabAaron [place] [id number] [facility] [id number] Information: ADD [id number] AND DRAW FEE 99 6660 CO2 [Moles/Vol] 22 mmol/L Normal 20-32 Comprehen sive Internal Medicine; [facility] Work Phone: Comment on above: PATIENT WAS FASTINGP ERFORMED BY: DONATO [facility] Okonxi3825 [facility] [id number] Information: ADD [id number] AND DRAW FEE 99 6660 Creatinine [Mass/Vol] 0.87 mg/dL Normal 0.76-1.27 [facility]; [facility] Work Phone: Comment on above: PATIENT WAS FASTINGP ERFORMED BY: CB [facility] Wyobmc5784 [facility] [id number] Information: ADD [id number] AND DRAW FEE 99 6660 GFR/1.73 sq M predicted among blacks CKD-EPI (S/P/Bld) [Vol rate/Area] 125 mL/min/1.73 Normal [facility]; [facility] Work Phone: Comment on above: PATIENT WAS FASTINGP ERFORMED BY: DONATO [facility] Bezdnf9295 [facility] [id number] Information: ADD [id number] AND DRAW FEE 99 6660 GFR/1.73 sq M predicted among non-blacks CKD-EPI (S/P/Bld) [Vol rate/Area] 108 mL/min/1.73 Normal [facility]; [facility] Work Phone: Comment on above: PATIENT WAS FASTINGP ERFORMED BY: DONATO [facility] Eaxiwu9658 [facility] [id number] Information: ADD [id number] AND DRAW FEE 99 6660 Globulin (S) [Mass/Vol] 2.6 g/dL Normal 1.5-4.5 [facility]; [facility] Work Phone: Comment on above: PATIENT WAS FASTINGP ERFORMED BY: CB [facility] Jkmeed1114 [facility] [id number] Information: ADD [id number] AND DRAW FEE 99 6660 Glucose [Mass/Vol] 84 mg/dL Normal 65-99 [facility]; [facility] Work Phone: Comment on above: PATIENT WAS FASTINGP ERFORMED BY: DONATO Demianjaycee Lxgzbs2181 [facility] [id number] Information: ADD [id number] AND DRAW FEE 99 6660 Potassium [Moles/Vol] 4.3 mmol/L Normal 3.5-5.2 [facility]; [facility] Work Phone: Comment on above: PATIENT WAS FASTINGP ERFORMED BY: DONATO Demian Rrnpwa1923 [facility] [id number] Information: ADD [id number] AND DRAW FEE 99 6660 Protein [Mass/Vol] 7.1 g/dL Normal 6.0-8.5 [facility]; [facility] Work Phone: Comment on above: PATIENT WAS FASTINGP ERFORMED BY: DONATO CullenSofiya FerrerZrlhrr2997 [facility] [id number] Information: ADD [id number] AND DRAW FEE 99 6660 Sodium [Moles/Vol] 142 mmol/L Normal 134-144 [facility]; [facility] Work Phone: Comment on above: PATIENT WAS FASTINGP ERFORMED BY: DONATO CullenSofiya FerrerLynxso2862 [facility] [id number] Information: ADD [id number] AND DRAW FEE 99 6660 Urea nitrogen [Mass/Vol] 10 mg/dL Normal 6-24 [facility]; [facility] Work Phone: Comment on above: PATIENT WAS FASTINGP ERFORMED BY: DONATO CullenRoss Itjwgg9719 [facility] [id number] Information: ADD [id number] AND DRAW FEE 99 6660 Urea nitrogen/Creatinine [Mass ratio] 11 mg/mg Normal 9-20 [facility]; [facility] Work Phone: Comment on above: PATIENT WAS FASTINGP ERFORMED BY: DONATO CullenRoss Fiflua4740 [facility] [id number] Information: ADD [id number] AND DRAW FEE 99 6660 Valproic Acid (78230)Ordered By: 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 Toxicity may occur at levels of 100-500. Measurements of free unbound valproic acid may improve the assess- ment of clinical response. standing order every [address] brisa Lowry [facility] main; PATIENT WAS FASTINGPERFORMED BY: [facility]6370 [facility] [id number] Vital Signs Date Time Vital Sign Value Performing Clinician Facility 03-03-2021 07:08-0400 Body height 182.88 cm Montserrat Smith MA [facility]; [facility] Work Phone: 03-03-2021 07:08-0400 Body mass index (BMI) [Ratio] 30.84 kg/m2 Montserrat Smith MA [facility]; [facility] Work Phone: 03-03-2021 07:08-0400 Body surface area Derived from formula 2.25 m2 Montserrat Smith MA [facility]; [facility] Work Phone: 03-03-2021 07:08-0400 Body temperature 96.8 [degF] Montserrat Smith MA [facility]; [facility] Work Phone: Comment on above: Method: Temporal 03-03-2021 07:08-0400 Body weight 103.14 kg Montserrat Smith MA [facility]; [facility] Work Phone: 03-03-2021 07:08-0400 Diastolic blood pressure 78 mm[Hg] Montserrat Smith MA [facility]; [facility] Work Phone: Comment on above: Patient Position: Sitting; Cuff Location : Left Arm; Cuff Size: Standard 03-03-2021 07:08-0400 Heart rate 99 /min Montserrat Smith MA [facility]; [facility] Work Phone: Comment on above: Pattern: Regular 03-03-2021 07:08-0400 Respiratory rate 16 /min Montserrat Smith MA [facility]; [facility] Work Phone: Comment on above: Pattern: Unlabored 03-03-2021 07:08-0400 SaO2% (BldA) [Mass fraction] 95 % Montserrat Smith MA [facility]; [facility] Work Phone: Comment on above: Room air 03-03-2021 07:08-0400 Systolic blood pressure 119 mm[Hg] Montserrat Smith MA [facility]; [facility] Work Phone: Comment on above: Patient Position: Sitting; Cuff Location : Left Arm; Cuff Size: Standard 09-01-2020 07:04-0400 Body height 182.88 cm Rylee Dillon [facility]; [facility] Work Phone: 09-01-2020 07:04-0400 Body mass index (BMI) [Ratio] 31.92 kg/m2 Rylee Dillon [facility]; [facility] Work Phone: 09-01-2020 07:04-0400 Body surface area Derived from formula 2.28 m2 Rylee Dillon [facility]; [facility] Work Phone: 09-01-2020 07:04-0400 Body temperature 97.1 [degF] Rylee Dillon [facility] Comprehensiv e Internal Medicine; [facility] Work Phone: Comment on above: Method: Temporal 09-01-2020 07:04-0400 Body weight 106.77 kg Rylee Dillon [facility]; [facility] Work Phone: 09-01-2020 07:04-0400 Diastolic blood pressure 70 mm[Hg] Rylee Dillon [facility]; [facility] Work Phone: Comment on above: Patient Position: Sitting; Cuff Location : Left Arm; Cuff Size: Standard 09-01-2020 07:04-0400 Heart rate 61 /min Rylee Dillon [facility]; [facility] Work Phone: Comment on above: Pattern: Regular 09-01-2020 07:04-0400 Respiratory rate 16 /min Rylee Dillon [facility] Comprehensiv e Internal Medicine; [facility] Work Phone: Comment on above: Pattern: Unlabored 09-01-2020 07:04-0400 SaO2% (BldA) [Mass fraction] 98 % Rylee Dillon [facility]; [facility] Work Phone: Comment on above: Room air 09-01-2020 07:04-0400 Systolic blood pressure 120 mm[Hg] Rylee Dillon [facility]; [facility] Work Phone: Comment on above: Patient Position: Sitting; Cuff Location : Left Arm; Cuff Size: Standard 05-13-2020 06:46-0500 BMI (Body Mass Index) 36.26 kg/m2 [facility]; [facility] Work Phone: 05-13-2020 06:46-0500 Body weight 121.28 kg [facility] Internal Medicine; [facility] Work Phone: 05-13-2020 06:46-0500 BSA (Body Surface Area) 2.41 m2 [facility]; [facility] Work Phone: 05-13-2020 06:46-0500 Height 182.88 cm [facility]; [facility] Work Phone: 05-05-2020 07:06-0500 BMI (Body Mass Index) 36.26 kg/m2 [facility]; [facility] Work Phone: 05-05-2020 07:06-0500 Body Temperature 96.9 [degF] [facility]; [facility] Work Phone: Comment on above: Method: Thermal Scan 05-05-2020 07:06-0500 Body weight 121.28 kg [facility]; [facility] Work Phone: 05-05-2020 07:06-0500 BP Diastolic 68 mm[Hg] [facility]; [facility] Work Phone: Comment on above: Patient Position: Sitting; Cuff Location : Left Arm; Cuff Size: Standard 05-05-2020 07:06-0500 BP Systolic 110 mm[Hg] [facility]; [facility] Work Phone: Comment on above: Patient Position: Sitting; Cuff Location : Left Arm; Cuff Size: Standard 05-05-2020 07:06-0500 BSA (Body Surface Area) 2.41 m2 [facility]; [facility] Work Phone: 05-05-2020 07:06-0500 Height 182.88 cm [facility]; [facility] Work Phone: 05-05-2020 07:06-0500 Pulse (Heart Rate) 71 /min [facility] Comprehensiv e Internal Medicine; [facility] Work Phone: Comment on above: Pattern: Regular 05-05-2020 07:06-0500 Pulse Oximetry 97 % Ebony Prince [facility]; [facility] Work Phone: Comment on above: Room air 05-05-2020 07:06-0500 Respiratory Rate 16 /min [facility]; [facility] Work Phone: Comment on above: Pattern: Unlabored 05-05-2020 07:06-0500 SaO2% (BldA) [Mass fraction] 97 % [facility]; [facility] Work Phone: Comment on above: Room air 04-15-2020 07:33-0500 BMI (Body Mass Index) 35.31 kg/m2 Rylee Gravius [facility]; [facility] Work Phone: 04-15-2020 07:33-0500 Body weight 118.11 kg Rylee Gravius [facility]; [facility] Work Phone: 04-15-2020 07:33-0500 BSA (Body Surface Area) 2.38 m2 Rylee Gravius [facility]; [facility] Work Phone: 04-15-2020 07:33-0500 Height 182.88 cm Rylee Stafnordius [facility]; [facility] Work Phone: 06-06-2016 15:56-0500 BMI (Body Mass Index) 34.77 kg/m2 Carmen Whitney RN [facility]; [facility] Work Phone: Comment on above: recheck bp 138/98 06-06-2016 15:56-0500 Body weight 116.29 kg Carmen Whitney RN [facility]; [facility] Work Phone: Comment on above: recheck bp 138/98 06-06-2016 15:56-0500 BP Diastolic 98 mm[Hg] Carmen Whitney RN [facility]; [facility] Work Phone: Comment on above: Patient Position: Sitting; Cuff Location : Left Arm; Cuff Size: Large recheck bp 138/98 06-06-2016 15:56-0500 BP Systolic 138 mm[Hg] Carmen Whitney RN [facility]; [facility] Work Phone: Comment on above: Patient Position: Sitting; Cuff Location : Left Arm; Cuff Size: Large recheck bp 138/98 06-06-2016 15:56-0500 BSA (Body Surface Area) 2.37 m2 Carmen Whitney RN [facility]; [facility] Work Phone: Comment on above: recheck bp 138/98 06-06-2016 15:56-0500 Height 182.88 cm Carmen Whitney RN [facility]; [facility] Work Phone: Comment on above: recheck bp 138/98 06-06-2016 15:56-0500 Pulse (Heart Rate) 89 /min Carmen Whitney RN Comprehens harshil Internal Medicine; [facility] Work Phone: Comment on above: Pattern: Regular recheck bp 138/98 06-06-2016 15:56-0500 Pulse Oximetry 98 % Ebony Prince [facility]; [facility] Work Phone: Comment on above: Room air recheck bp 138/98 06-06-2016 15:56-0500 Respiratory Rate 18 /min Carmen Whitney RN Comprehensiv e [facility]; [facility] Work Phone: Comment on above: Pattern: Unlabored recheck bp 138/98 06-06-2016 15:56-0500 SaO2% (BldA) [Mass fraction] 98 % Carmen Whitney RN [facility]; [facility] Work Phone: Comment on above: Room air recheck bp 138/98 04-05-2016 09:30-0500 BMI (Body Mass Index) 37.62 kg/m2 Carmen Whitney RN [facility]; [facility] Work Phone: 04-05-2016 09:30-0500 Body Temperature 97.5 [degF] Carmen Whitney RN Comprehens[facility] e [facility]; [facility] Work Phone: Comment on above: Method: Temporal 04-05-2016 09:30-0500 Body weight 125.82 kg Carmen Whitney RN [facility]; [facility] Work Phone: 04-05-2016 09:30-0500 BP Diastolic 80 mm[Hg] Carmen Whitney RN [facility]; [facility] Work Phone: Comment on above: Patient Position: Sitting; Cuff Location : Left Arm; Cuff Size: Large 04-05-2016 09:30-0500 BP Systolic 120 mm[Hg] Carmen Whitney RN [facility]; [facility] Work Phone: Comment on above: Patient Position: Sitting; Cuff Location : Left Arm; Cuff Size: Large 04-05-2016 09:30-0500 BSA (Body Surface Area) 2.45 m2 Carmen Whitney RN [facility]; [facility] Work Phone: 04-05-2016 09:30-0500 Height 182.88 cm Carmen Whitney RN [facility]; [facility] Work Phone: 04-05-2016 09:30-0500 Pulse (Heart Rate) 68 /min Carmen Whitney RN Comprehens harshil [facility]; [facility] Work Phone: Comment on above: Pattern: Regular 04-05-2016 09:30-0500 Pulse Oximetry 98 % Ebony Prince [facility]; [facility] Work Phone: Comment on above: Room air 04-05-2016 09:30-0500 Respiratory Rate 18 /min Carmen Whitney RN Comprehens[facility] e [facility]; [facility] Work Phone: Comment on above: Pattern: Unlabored 04-05-2016 09:30-0500 SaO2% (BldA) [Mass fraction] 98 % Carmen Whitney RN [facility]; [facility] Work Phone: Comment on above: Room air 07-30-2014 13:02-0400 BMI (Body Mass Index) 38.52 kg/m2 MATEUSZ Lowery LPN [facility]; [facility] Internal Medicine Work Phone: 07-30-2014 13:02-0400 Body Temperature 97.9 [degF] MATEUSZ Lowery LPN [facility]; [facility] Work Phone: Comment on above: Method: Temporal 07-30-2014 13:02-0400 Body weight 128.82 kg MATEUSZ Lowery LPN [facility]; [facility] Work Phone: 07-30-2014 13:02-0400 BP Diastolic 82 mm[Hg] MATEUSZ Lowery LPN [facility]; [facility] Work Phone: Comment on above: Patient Position: Sitting; Cuff Location : Left Arm; Cuff Size: Large 07-30-2014 13:02-0400 BP Systolic 130 mm[Hg] MATEUSZ Lowery LPN [facility]; [facility] Work Phone: Comment on above: Patient Position: Sitting; Cuff Location : Left Arm; Cuff Size: Large 07-30-2014 13:02-0400 BSA (Body Surface Area) 2.47 m2 MATEUSZ Lowery LPN [facility]; [facility] Work Phone: 07-30-2014 13:02-0400 Height 182.88 cm MATEUSZ Lowery LPN [facility]; [facility] Work Phone: 07-30-2014 13:02-0400 Pulse (Heart Rate) 84 /min MATEUSZ Molinaens harshil [facility]; [facility] Work Phone: Comment on above: Pattern: Regular 07-30-2014 13:02-0400 Pulse Oximetry 98 % Ebony Prince [facility]; [facility] Work Phone: Comment on above: Room air 07-30-2014 13:02-0400 Respiratory Rate 20 /min MATEUSZ Lowery LPN [facility]; [facility] Work Phone: Comment on above: Pattern: Unlabored 07-30-2014 13:02-0400 SaO2% (BldA) [Mass fraction] 98 % MATEUSZ Lowery LPN [facility]; [facility] Work Phone: Comment on above: Room air 12-25-2013 07:36-0400 BMI (Body Mass Index) 36.89 kg/m2 MATEUSZ Lowery LPN [facility]; [facility] Work Phone: 12-25-2013 07:36-0400 Body Temperature 97.6 [degF] MATEUSZ Lowery LPN [facility]; [facility] Work Phone: Comment on above: Method: Oral 12-25-2013 07:36-0400 Body weight 123.38 kg MATEUSZ Lowery LPN [facility]; [facility] Work Phone: 12-25-2013 07:36-0400 BP Diastolic 84 mm[Hg] MATEUSZ Lowery LPN [facility]; [facility] Work Phone: Comment on above: Patient Position: Sitting; Cuff Location : Left Arm; Cuff Size: Standard 12-25-2013 07:36-0400 BP Systolic 134 mm[Hg] MATEUSZ Lowery LPN [facility]; [facility] Work Phone: Comment on above: Patient Position: Sitting; Cuff Location : Left Arm; Cuff Size: Standard 12-25-2013 07:36-0400 BSA (Body Surface Area) 2.43 m2 MATEUSZ Lowery LPN [facility]; [facility] Work Phone: 12-25-2013 07:36-0400 Height 182.88 cm MATEUSZ Lowery LPN [facility]; [facility] Work Phone: 12-25-2013 07:36-0400 Pulse (Heart Rate) 76 /min MATEUSZ Lowery LPN [facility]prehens [facility]; [facility] Work Phone: Comment on above: Pattern: Regular 12-25-2013 07:36-0400 Respiratory Rate 20 /min MATEUSZ Lowery LPN [facility]; [facility] Work Phone: Comment on above: Pattern: Unlabored 05-08-2013 11:47-0500 BMI (Body Mass Index) 38.65 kg/m2 Ebony Prince [facility]; [facility] Work Phone: 05-08-2013 11:47-0500 Body weight 129.28 kg Ebony Prince [facility]; [facility] Work Phone: 05-08-2013 11:47-0500 BP Diastolic 88 mm[Hg] Ebony Prince [facility]; [facility] Work Phone: Comment on above: Patient Position: Sitting; Cuff Location : Left Arm; Cuff Size: Standard 05-08-2013 11:47-0500 BP Systolic 126 mm[Hg] Ebony Prince [facility]; [facility] Work Phone: Comment on above: Patient Position: Sitting; Cuff Location : Left Arm; Cuff Size: Standard 05-08-2013 11:47-0500 BSA (Body Surface Area) 2.48 m2 Ebony Prince [facility]; [facility] Work Phone: 05-08-2013 11:47-0500 Height 182.88 cm Ebony Prince [facility]; [facility] Work Phone: 04-21-2013 16:02-0500 BMI (Body Mass Index) 38.65 kg/m2 Devikai Dsouzay [facility]; [facility] Work Phone: 04-21-2013 16:02-0500 Body Temperature 98.8 [degF] Devi Valdes [facility]; [facility] Work Phone: Comment on above: Method: Oral 04-21-2013 16:02-0500 Body weight 129.28 kg Devi Fernandez [facility]; [facility] Work Phone: 04-21-2013 16:02-0500 BP Diastolic 98 mm[Hg] Devi Valdes [facility]; [facility] Work Phone: Comment on above: Patient Position: Sitting; Cuff Location : Left Arm; Cuff Size: Standard 04-21-2013 16:02-0500 BP Systolic 150 mm[Hg] Devi Valdes [facility]; [facility] Work Phone: Comment on above: Patient Position: Sitting; Cuff Location : Left Arm; Cuff Size: Standard 04-21-2013 16:02-0500 BSA (Body Surface Area) 2.48 m2 Devi Valdes [facility]; [facility] Work Phone: 04-21-2013 16:02-0500 Height 182.88 cm Devi Valdes [facility]; [facility] Work Phone: 04-21-2013 16:02-0500 Pulse (Heart Rate) 120 /min Devi Valdes [facility]; [facility] Work Phone: Comment on above: Pattern: Regular 04-21-2013 16:02-0500 Pulse Oximetry 98 % Ebony Prince [facility]; [facility] Work Phone: Comment on above: Room air 04-21-2013 16:02-0500 Respiratory Rate 18 /min Devi Valdes [facility]; [facility] Work Phone: Comment on above: Pattern: Unlabored 04-21-2013 16:02-0500 SaO2% (BldA) [Mass fraction] 98 % Devi Valdes [facility]; [facility] Work Phone: Comment on above: Room air 01-26-2013 16:15-0400 BMI (Body Mass Index) 38.25 kg/m2 MATEUSZ Lowery LPN [facility]; [facility] Work Phone: 01-26-2013 16:15-0400 Body Temperature 97.8 [degF] MATEUSZ Lowery LPN [facility]; [facility] Work Phone: Comment on above: Method: Oral 01-26-2013 16:15-0400 Body weight 127.92 kg MATEUSZ Lowery TRISTA [facility]; [facility] Work Phone: 01-26-2013 16:15-0400 BP Diastolic 92 mm[Hg] MATEUSZ Lowery TRISTA [facility]; [facility] Work Phone: Comment on above: Patient Position: Sitting; Cuff Location : Left Arm; Cuff Size: Standard 01-26-2013 16:15-0400 BP Systolic 136 mm[Hg] MATEUSZ Sebastián WESTON [facility]; [facility] Work Phone: Comment on above: Patient Position: Sitting; Cuff Location : Left Arm; Cuff Size: Standard 01-26-2013 16:15-0400 BSA (Body Surface Area) 2.47 m2 MATEUSZ Lowery LPN [facility]; [facility] Work Phone: 01-26-2013 16:15-0400 Height 182.88 cm MATEUSZ Lowery LPN [facility]; [facility] Work Phone: 01-26-2013 16:15-0400 Pulse (Heart Rate) 78 /min MATEUSZ Lowery TRISTA [facility]; [facility] Work Phone: Comment on above: Pattern: Regular 01-26-2013 16:15-0400 Respiratory Rate 20 /min MATEUSZ Lowery TRISTA [facility]; [facility] Work Phone: Comment on above: Pattern: Unlabored 12-26-2012 10:54-0400 Body Temperature 97.6 [degF] MATEUSZ Lowery LPN [facility]; [facility] Work Phone: Comment on above: Method: Oral has been rushing ajay ve here from [place] had 3 cups coffee this am 12-26-2012 10:54-0400 Body weight 127.92 kg MATEUSZ Lowery LPN [facility]; [facility] Work Phone: Comment on above: has been rushing drove here from [facility] nd had 3 cups coffee this am 12-26-2012 10:54-0400 BP Diastolic 110 mm[Hg] MATEUSZ Lwoery LPN [facility]; [facility] Work Phone: Comment on above: Patient Position: Sitting; Cuff Location : Left Arm; Cuff Size: Standard has been rushing ajay ve here from [place] had 3 cups coffee this am 12-26-2012 10:54-0400 BP Systolic 164 mm[Hg] MATEUSZ Lowery LPN [facility]; [facility] Work Phone: Comment on above: Patient Position: Sitting; Cuff Location : Left Arm; Cuff Size: Standard has been rushing ajay ve here from [place] had 3 cups coffee this am 12-26-2012 10:54-0400 Pulse (Heart Rate) 110 /min MATEUSZ Lowery LPN Comprehens [facility]; [facility] Work Phone: Comment on above: Pattern: Regular has been rushing ajay ve here from [place] had 3 cups coffee this am 12-26-2012 10:54-0400 Respiratory Rate 20 /min MATEUSZ Lowery LPN [facility]; [facility] Work Phone: Comment on above: Pattern: Unlabored has been rushing ajay ve here from [place] had 3 cups coffee this am 06-30-2012 15:23-0500 BMI (Body Mass Index) 37.87 kg/m2 Carmen Whitney RN [facility]; [facility] Work Phone: 06-30-2012 15:23-0500 Body Temperature 98.1 [degF] Carmen Whitney RN [facility]; [facility] Work Phone: Comment on above: Method: Oral 06-30-2012 15:23-0500 Body weight 126.67 kg Carmen Whitney RN [facility]; [facility] Work Phone: 06-30-2012 15:23-0500 BP Diastolic 88 mm[Hg] Carmen Whitney RN [facility]; [facility] Work Phone: Comment on above: Patient Position: Sitting; Cuff Location : Left Arm; Cuff Size: Large 06-30-2012 15:23-0500 BP Systolic 124 mm[Hg] Carmen Whitney RN [facility]; [facility] Work Phone: Comment on above: Patient Position: Sitting; Cuff Location : Left Arm; Cuff Size: Large 06-30-2012 15:23-0500 BSA (Body Surface Area) 2.46 m2 Carmen Whitney RN [facility]; [facility] Work Phone: 06-30-2012 15:23-0500 Height 182.88 cm Carmen Whitney RN [facility]; [facility] Work Phone: 06-30-2012 15:23-0500 Pulse (Heart Rate) 64 /min Carmen Whitney RN Comprehens [facility]; [facility] Work Phone: Comment on above: Pattern: Regular 06-30-2012 15:23-0500 Respiratory Rate 20 /min Carmen Whitney RN [facility]; [facility] Work Phone: Comment on above: Pattern: Unlabored 04-14-2012 16:06-0500 BMI (Body Mass Index) 36.75 kg/m2 MATEUSZ Lowery LPN [facility]; [facility] Work Phone: Comment on above: patient has had alot of coffee today b een at work since 4am today 04-14-2012 16:06-0500 Body Temperature 97.9 [degF] MATEUSZ Lowery LPN [facility]; [facility] Work Phone: Comment on above: Method: Oral patient has had lizbet t of coffee today been at work since 4am today 04-14-2012 16:06-0500 Body weight 122.93 kg MATEUSZ Lowery LPN [facility]; [facility] Work Phone: Comment on above: patient has had alot of coffee today b een at work since 4am today 04-14-2012 16:06-0500 BP Diastolic 94 mm[Hg] MATEUSZ Lowery LPN [facility]; [facility] Work Phone: Comment on above: Patient Position: Sitting; Cuff Location : Left Arm; Cuff Size: Standard patient has had lizbet t of coffee today been at work since 4am today 04-14-2012 16:06-0500 BP Systolic 136 mm[Hg] MATEUSZ Lowery LPN [facility]; [facility] Work Phone: Comment on above: Patient Position: Sitting; Cuff Location : Left Arm; Cuff Size: Standard patient has had lizbet t of coffee today been at work since 4am today 04-14-2012 16:06-0500 BSA (Body Surface Area) 2.42 m2 MATEUSZ Lowery LPN [facility]; [facility] Work Phone: Comment on above: patient has had alot of coffee today b een at work since 4am today 04-14-2012 16:06-0500 Height 182.88 cm MATEUSZ Lowery LPN [facility]; [facility] Work Phone: Comment on above: patient has had alot of coffee today b een at work since 4am today 04-14-2012 16:06-0500 Pulse (Heart Rate) 80 /min MATEUSZ Lowery LPN Comprehens [facility]; [facility] Work Phone: Comment on above: Pattern: Regular patient has had lizbet t of coffee today been at work since 4am today 04-14-2012 16:06-0500 Respiratory Rate 20 /min MATEUSZ Lowery LPN [facility]; [facility] Work Phone: Comment on above: Pattern: Unlabored patient has had lizbet t of coffee today been at work since 4am today 10-23-2011 15:16-0400 BMI (Body Mass Index) 37.16 kg/m2 MATEUSZ Lowery LPN [facility]; [facility] Work Phone: 10-23-2011 15:16-0400 Body Temperature 98 [degF] MATEUSZ Lowery LPN [facility]; [facility] Work Phone: Comment on above: Method: Oral 10-23-2011 15:16-0400 Body weight 124.29 kg MATEUSZ Lowery LPN [facility]; [facility] Work Phone: 10-23-2011 15:16-0400 BP Diastolic 82 mm[Hg] MATEUSZ Lowery LPN [facility]; [facility] Work Phone: Comment on above: Patient Position: Sitting; Cuff Location : Left Arm; Cuff Size: Large 10-23-2011 15:16-0400 BP Systolic 124 mm[Hg] MATEUSZ Sebastián WESTON [facility]; [facility] Work Phone: Comment on above: Patient Position: Sitting; Cuff Location : Left Arm; Cuff Size: Large 10-23-2011 15:16-0400 BSA (Body Surface Area) 2.44 m2 MATEUSZ Lowery LPN [facility]; [facility] Work Phone: 10-23-2011 15:16-0400 Height 182.88 cm MATEUSZ Lowery LPN [facility]; [facility] Work Phone: 10-23-2011 15:16-0400 Pulse (Heart Rate) 74 /min MATEUSZ Lowery TRISTA [facility]; [facility] Work Phone: Comment on above: Pattern: Regular 10-23-2011 15:16-0400 Respiratory Rate 20 /min MATEUSZ Lowery TRISTA [facility]; [facility] Work Phone: Comment on above: Pattern: Unlabored Encounters Encounter Date Encounter Type Care Provider Facility Start: 01-01-2025 ambulatory Ebonyana maria Prince Facilit y:[facility] Start: 03-03-2021 End: 03-03-2021 Office outpatient visit 25 minutes Ebony Suresh DO Work Phone: [facility] Start: 09-01-2020 End: 09-01-2020 Office outpatient visit 25 minutes Ebony Prince DO Work Phone: [facility] Start: 05-13-2020 End: 05-13-2020 Office outpatient visit 25 minutes Ebony Prince [facility] Start: 05-05-2020 Review Ebony Prince [facility] Start: 05-05-2020 End: 05-05-2020 Office outpatient visit 25 minutes Ebony Prince [facility] Start: 05-05-2020 Review Ebony Prince [facility] Start: 04-15-2020 End: 04-15-2020 Phone Encounter Ebony Suresh [facility] Start: 04-15-2020 End: 04-15-2020 Office outpatient visit 10 minutes Ebony Prince [facility] Start: 06-06-2016 End: 06-06-2016 Office outpatient visit 25 minutes Ebony Prince [facility] Start: 04-05-2016 End: 04-05-2016 Office outpatient visit 15 minutes Ebony Prince [facility] Start: 07-30-2014 End: 07-30-2014 Office outpatient visit 10 minutes Ebony Prince [facility] Start: 12-25-2013 End: 12-25-2013 Office outpatient visit 25 minutes Ebony Prince [facility] Start: 05-08-2013 End: 05-08-2013 Patient encounter procedure Ebony Prince [facility] Start: 05-04-2013 End: 05-04-2013 Phone Encounter Ebony Prince [facility] Start: 04-21-2013 End: 04-21-2013 Patient encounter procedure Ebonyana maria Prince [facility] Start: 01-26-2013 End: 01-26-2013 Patient encounter procedure Ebony Prince [facility] Start: 01-23-2013 End: 01-23-2013 Phone Encounter Ebonyana maria Prince [facility] Start: 12-26-2012 End: 12-28-2012 Patient encounter procedure Ebony Prince [facility] Start: 06-30-2012 End: 06-30-2012 Patient encounter procedure Ebony Prince [facility] Start: 04-14-2012 End: 04-14-2012 Patient encounter procedure Ebony Prince [facility] Start: 10-23-2011 End: 10-23-2011 Patient encounter procedure Ebony Prince [facility] Procedures Date Procedure Procedure Detail Performing Clinician Tonsillectomy Rylee Gravius Comment on above: 2006, nose broken an d fixed and soft palate raised (sleep apnea) Tonsillectomy Urmila Butts Comment on above: 2006, nose broken an d fixed and soft palate raised (sleep apnea) Tonsillectomy Urmila Butts Comment on above: 2006, nose broken an d fixed and soft palate raised (sleep apnea) Tonsillectomy Gosia Avendano LPN Comment on above: 2006, nose broken an d fixed and soft palate raised (sleep apnea) Tonsillectomy Montserrat Smith MA Comment on above: 2006, nose broken an d fixed and soft palate raised (sleep apnea) Vasectomy Rylee Gravius Vasectomy Urmila Butts Vasectomy Urmila Butts Vasectomy Gosia GLOVER Vasectomy Montserrat Samuels Plan of Treatment Date Care Activity Detail Author Start: 03-03-2021 Procedure Education Eprescribe d prescriptions (G8553) [facility]; [facility] Work Phone: Start: 03-03-2021 Provider Instruction s for Treatment [facility]; [facility] Work Phone: Start: 03-03-2021 Lipid panel LIPID PANEL (67271) [facility] pre[facility] Medicine; [facility] Work Phone: Start: 09-01-2020 Procedure Education Eprescribe d prescriptions (G8553) [facility]; [facility] Work Phone: Start: 09-01-2020 Provider Instruction s for Treatment [facility]; [facility] Work Phone: Start: 05-13-2020 Procedure Education Eprescribe d prescriptions (G8553) [facility]; [facility] Work Phone: Start: 05-13-2020 Provider Instruction s for Treatment [facility]; [facility] Work Phone: Start: 05-13-2020 HbA1c (Bld) [Mass fraction] HGB A1C (90871) [facility]; [facility] Work Phone: Start: 05-13-2020 Hemoglobin glycosyla solomon a1c HGB A1C (33078) [facility]; [facility] Work Phone: Start: 05-13-2020 Lipoprotein blood qu an numbers & subclasses NMR Profile (59865) [facility]; [facility] Work Phone: Start: 05-05-2020 Procedure Education Eprescribe d prescriptions (G8553) [facility]; [facility] Work Phone: Start: 05-05-2020 Provider Instruction s for Treatment [facility]; [facility] Work Phone: Start: 05-05-2020 Lipoprotein blood qu an numbers & subclasses NMR Profile (68709) [facility]; [facility] Work Phone: Start: 05-05-2020 HbA1c (Bld) [Mass fraction] HGB A1C (49472) [facility]; [facility] Work Phone: Start: 05-05-2020 Testosterone [Mass/Vol] TESTOS TERONE TOTAL (89116) [facility]; [facility] Work Phone: Start: 05-05-2020 Assay of testosteron e free TESTOSTERONE FREE (68379) [facility]; [facility] Work Phone: Start: 05-05-2020 Urnls dip stick/tabl et reagent auto microscopy URINALYSIS, W/ MICRO (47597) [facility]; [facility] Work Phone: Start: 05-05-2020 Assay of prostate specific antigen total PSA (PROSTATE SPECIFIC ANTIGEN) (V76.44) [facility]; [facility] Work Phone: Start: 05-05-2020 TSH Qn TSH (THYROID STIMULATING HORMONE) (02032) [facility]; [facility] Work Phone: Start: 05-05-2020 Blood count complete auto&auto difrntl wbc CBC with auto diff (08546) [facility]; [facility] Work Phone: Start: 05-05-2020 Urine albumin quantitative MICROALBUMIN: CREATININE RATIO (25700) AND (51444) [facility]; [facility] Work Phone: Start: 05-05-2020 Comprehensive metabo lic panel METABOLIC PANEL, COMPREHENSIVE (51476) [facility]; [facility] Work Phone: Start: 04-15-2020 Patient Education EFUDEX INSTRUCTION S [facility]; [facility] Work Phone: Start: 04-15-2020 Procedure Education Eprescribe d prescriptions (G8553) [facility]; [facility] Work Phone: Start: 06-06-2016 Urnls dip stick/tabl et reagent auto microscopy URINALYSIS, W/ MICRO (83578) [facility]; [facility] Work Phone: Start: 06-06-2016 Urine albumin quantitative MICROALBUMIN: CREATININE RATIO (36433) AND (97220) [facility]; [facility] Work Phone: Start: 06-06-2016 Comprehensive metabo lic panel METABOLIC PANEL, COMPREHENSIVE (86838) [facility]; [facility] Work Phone: Start: 06-06-2016 Lipid panel LIPID PANEL (28473) [facility]; [facility] Work Phone: Start: 06-06-2016 Blood count complete auto&auto difrntl wbc CBC W/AUTO DIFF WBC (29336) [facility]; [facility] Work Phone: Start: 06-06-2016 HbA1c (Bld) [Mass fraction] HgA1C , Office (77843) [facility]; [facility] Work Phone: Start: 06-06-2016 Hemoglobin glycosyla solomon a1c HgA1C , Office (72286) [facility]; [facility] Work Phone: Start: 06-06-2016 Gluc bld gluc mntr d ev cleared fda spec home use Blood Glucose , Office (87777) [facility]; [facility] Work Phone: Start: 06-06-2016 Glucose [Mass/Vol] Blood Gluco se , Office (24719) [facility]; [facility] Work Phone: Start: 06-06-2016 Provider Instruction s for Treatment [facility]; [facility] Work Phone: Start: 07-30-2014 Lipid panel LIPID PANEL (52449) [facility]; [facility] Work Phone: Comment on above: in six months (appro ximately) Start: 07-30-2014 Drug assay valproic dipropylacetic acid total Valproic Acid (19933) [facility]; [facility] Work Phone: Comment on above: in six months (appro ximately) Start: 07-30-2014 Urnls dip stick/tabl et reagent auto microscopy URINALYSIS, W/ MICRO (95816) [facility]; [facility] Work Phone: Start: 07-30-2014 Comprehensive metabo lic panel METABOLIC PANEL, COMPREHENSIVE (97461) [facility]; [facility] Work Phone: Start: 07-30-2014 Blood count manual c ell count each CBC with auto diff (26418) [facility]; [facility] Work Phone: Start: 07-30-2014 Assay of blood/uric acid Uric Acid Blood (65028) [facility]; [facility] Work Phone: Comment on above: 4 weeks Start: 07-30-2014 HbA1c (Bld) [Mass fraction] Hemoglobin Glyclated (HGB A1C) (88651) [facility]; [facility] Work Phone: Comment on above: 4 weeks Start: 07-30-2014 Hemoglobin glycosyla solomon a1c Hemoglobin Glyclated (HGB A1C) (05429) [facility]; [facility] Work Phone: Comment on above: 4 weeks Start: 01-26-2013 Patient Education Health Maint enance: Controlling Cholesterol: diet [facility]; [facility] Work Phone: Start: 01-26-2013 Provider Instruction s for Treatment [facility]; [facility] Work Phone: Start: 01-23-2013 Hepatic function panel HEPATIC FUNCTION PANEL (71669) [facility]; [facility] Work Phone: Start: 01-23-2013 Drug assay valproic dipropylacetic acid total ASSAY-DIPROPYLACETC ACID (65535) [facility]; [facility] Work Phone: Start: 12-26-2012 Patient Education High Cholest wendy (Hypercholesterolemia) *: cardiovascular health [facility]; [facility] Work Phone: Start: 10-04-2012 Lipid panel LIPID PANEL (81689) [facility]; [facility] Work Phone: Start: 06-30-2012 Provider Instruction s for Treatment Cholesterol mgmt [facility]; [facility] Work Phone: Start: 04-14-2012 Assay of blood/uric acid Uric Acid Blood (23708) [facility]; [facility] Work Phone: Start: 04-14-2012 Lipid panel LIPID PANEL (82758) [facility]; [facility] Work Phone: Start: 04-14-2012 Patient Education Compr [facility]; [facility] Work Phone: [facility]; [facility] Work Phone: [facility] Work Phone: [facility] Work Phone: [facility]; [facility] Work Phone: [facility]; [facility] Work Phone: [facility]; [facility] Work Phone: Payers Date Payer Category Payer Self-pay 2024 Private Health Insurance [id number] 2024 Unknown [id number] Unknown Unknown [id number] Social History Date Type Detail Facility Alcohol Use: Alcohol Use: [facility]; [facility] Work Phone: Caffeine Use Caffeine Use [facility]; [facility] Work Phone: Comment on above: 4 qd Current Work/Study Status: Current Work/Study Status: [facility]; [facility] 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 Exercise History: Exercise History: [facility]; [facility] Work Phone: Living Situation: Living Situation: [facility]; [facility] Work Phone: Comment on above: Tobacco Use: Tobacco Use: [facility]; [facility] Work Phone: Alcohol Use: Alcohol Use: [facility]; [facility] Work Phone: Current Work/Study Status: Current Work/Study Status: [facility]; [facility] 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 Exercise History: Exercise History: [facility]; [facility] Work Phone: Living Situation: Living Situation: [facility]; [facility] Work Phone: Comment on above: Tobacco Use: Tobacco Use: [facility]; [facility] Work Phone: Functional Status Date Assessment Result Facility 09-01-2020 LP-IR Score LP-IR Score 71 [facility]; [facility] Work Phone: Comment on above: INSULIN RESISTANCE M ARKER <--Insulin Sensitive Insulin Resistant--> Percentile in Reference PopulationInsulin Resistance ScoreLP-IR Score Low 25th 50th 75th High <27 27 45 63 >63LP-IR Score is inaccurate if patient is non-fasting. .The LP-IR score is a laboratory developed index that has beenassociated with insulin resistance and diabetes risk and should beused as one component of a physician's clinical assessment. Test(s) 466558-KET-G ; 724102-NQS-I; 043525-Yfterkbizkesf; 990797-Rsbinmkccca, Total; 331836-ZUG-L (Total); 497445-Meyku LDL-P; 439711-GFT Size; 131303-PI-DY Scorewas developed and its performance characteristics determinedby [employer]. It has not been cleared or approved by the Foodand Drug Administration.PATIENT WAS FASTINGPERFORMED BY: [facility] [address] [id number] BY: [facility] [id number] [facility] [id number] 05-05-2020 LP-IR Score LP-IR Score 67 [facility]; [facility] Work Phone: Comment on above: INSULIN RESISTANCE M ARKER <--Insulin Sensitive Insulin Resistant--> Percentile in Reference PopulationInsulin Resistance ScoreLP-IR Score Low 25th 50th 75th High <27 27 45 63 >63LP-IR Score is inaccurate if patient is non-fasting. .The LP-IR score is a laboratory developed index that has beenassociated with insulin resistance and diabetes risk and should beused as one component of a physician's clinical assessment. Test(s) [id number]-XQJ-W ; 607066-SSI-I; 159472-Ghathiwkhgpfu; 098045-Mtgzmnbzbqe, Total; 632629-WMV-U (Total); 143233-Ytrpr LDL-P; 835983-TIV Size; 650251-TJ-NF Scorewas developed and its performance characteristics determinedby [employer]. It has not been cleared or approved by the Foodand Drug Administration.PATIENT WAS FASTINGPERFORMED BY: BN [facility] [id number] [facility] [id number] BY: CB [facility] [id number] [facility] [id number] Instructions Note Date & Type Note Facility Instructions Name Patient Instructions Indication:BMI 35.0-35.9,adult Start: Instruction Type:Provider Instructions for Treatment How to Access Health Information Online using Patient Portal and [employer] Apps Indication:BMI 35.0-35.9,adult Start: Instruction Type:Patient Education How to Access Health Information Online using Patient Portal and [employer] Apps Indication:Non-smoker Start:13-May-2020 Instruction Type:Patient Education Patient Instructions Indication:Non-smoker Start:13-May-2020 Instruction Type:Provider Instructions for Treatment How to Access Health Information Online using Patient Portal and [employer] Apps Indication:Non-smoker Start: 0 Instruction Type:Patient Education Patient Instructions Indication:Non-smoker Start: 0 Instruction Type:Provider Instructions for Treatment Patient Instructions Indication:Non-smoker Start: 0 Instruction Type:Provider Instructions for Treatment How to Access Health Information Online using Patient Portal and [employer] Apps Indication:Non-smoker Start: 0 Instruction Type:Patient Education How to access health information online Indication:Non-smoker Start:06-Jun-2016 Instruction Type:Patient Education How to access health information online - Detail Indication:Non-smoker Start:06-Jun-2016 Instruction Type:Patient Education Patient Instructions Indication:Non-smoker Start:06-Jun-2016 Instruction Type:Provider Instructions for Treatment Patient Instructions Indication:History of epilepsy Start:05-Apr-2016 Instruction Type:Provider Instructions for Treatment Patient Instructions Indication:Attention deficit disorder Start: 4 Instruction Type:Provider Instructions for Treatment Patient Instructions Indication:Hypercholesteremi a Start: 3 Instruction Type:Provider Instructions for Treatment Patient Instructions Indication:Cerebrovascular disease, unspecified Start: 3 Instruction Type:Provider Instructions for Treatment Patient Instructions Indication:Dysthymic Start: 2 Instruction Type:Provider Instructions for Treatment [facility]; [facility] Work Phone: Instructions Note Date & Type Note Facility Instructions Name Patient Instructions Indication:BMI 35.0-35.9,adult Start: 1 Instruction Type:Provider Instructions for Treatment How to Access Health Information Online using Patient Portal and [employer] Apps Indication:BMI 35.0-35.9,adult Start: 1 Instruction Type:Patient Education How to Access Health Information Online using Patient Portal and [employer] Apps Indication:Non-smoker Start:13-May-2020 Instruction Type:Patient Education Patient Instructions Indication:Non-smoker Start:13-May-2020 Instruction Type:Provider Instructions for Treatment How to Access Health Information Online using Patient Portal and [employer] Apps Indication:Non-smoker Start: 0 Instruction Type:Patient Education Patient Instructions Indication:Non-smoker Start: 0 Instruction Type:Provider Instructions for Treatment Patient Instructions Indication:Non-smoker Start: 0 Instruction Type:Provider Instructions for Treatment How to Access Health Information Online using Patient Portal and [employer] Apps Indication:Non-smoker Start: 0 Instruction Type:Patient Education How to access health information online Indication:Non-smoker Start:06-Jun-2016 Instruction Type:Patient Education How to access health information online - Detail Indication:Non-smoker Start:06-Jun-2016 Instruction Type:Patient Education Patient Instructions Indication:Non-smoker Start:06-Jun-2016 Instruction Type:Provider Instructions for Treatment Patient Instructions Indication:History of epilepsy Start:05-Apr-2016 Instruction Type:Provider Instructions for Treatment Patient Instructions Indication:Attention deficit disorder Start: 4 Instruction Type:Provider Instructions for Treatment Patient Instructions Indication:Hypercholesteremi a Start: 3 Instruction Type:Provider Instructions for Treatment Patient Instructions Indication:Cerebrovascular disease, unspecified Start: 3 Instruction Type:Provider Instructions for Treatment Patient Instructions Indication:Dysthymic Start: 2 Instruction Type:Provider Instructions for Treatment [facility]; [facility] Work Phone: Instructions Note Date & Type Note Facility Instructions Name Patient Instructions Indication:BMI 35.0-35.9,adult Start: 1 Instruction Type:Provider Instructions for Treatment How to Access Health Information Online using Patient Portal and [employer] Apps Indication:BMI 35.0-35.9,adult Start: 1 Instruction Type:Patient Education Patient Instructions Indication:BMI 35.0-35.9,adult Start: 1 Instruction Type:Provider Instructions for Treatment How to Access Health Information Online using Patient Portal and [employer] Apps Indication:BMI 35.0-35.9,adult Start: 1 Instruction Type:Patient Education How to Access Health Information Online using Patient Portal and [employer] Apps Indication:Non-smoker Start:13-May-2020 Instruction Type:Patient Education Patient Instructions Indication:Non-smoker Start:13-May-2020 Instruction Type:Provider Instructions for Treatment How to Access Health Information Online using Patient Portal and [employer] Apps Indication:Non-smoker Start: 0 Instruction Type:Patient Education Patient Instructions Indication:Non-smoker Start: 0 Instruction Type:Provider Instructions for Treatment Patient Instructions Indication:Non-smoker Start: 0 Instruction Type:Provider Instructions for Treatment How to Access Health Information Online using Patient Portal and [employer] Apps Indication:Non-smoker Start: 0 Instruction Type:Patient Education How to access health information online Indication:Non-smoker Start:06-Jun-2016 Instruction Type:Patient Education How to access health information online - Detail Indication:Non-smoker Start:06-Jun-2016 Instruction Type:Patient Education Patient Instructions Indication:Non-smoker Start:06-Jun-2016 Instruction Type:Provider Instructions for Treatment Patient Instructions Indication:History of epilepsy Start:05-Apr-2016 Instruction Type:Provider Instructions for Treatment Patient Instructions Indication:Attention deficit disorder Start: 4 Instruction Type:Provider Instructions for Treatment Patient Instructions Indication:Hypercholesteremi a Start: 3 Instruction Type:Provider Instructions for Treatment Patient Instructions Indication:Cerebrovascular disease, unspecified Start: 3 Instruction Type:Provider Instructions for Treatment Patient Instructions Indication:Dysthymic Start: 2 Instruction Type:Provider Instructions for Treatment [facility]; [facility] Work Phone: Instructions Note Date & Type Note Facility Instructions Name Patient Instructions Indication:BMI 35.0-35.9,adult Start: 1 Instruction Type:Provider Instructions for Treatment How to Access Health Information Online using Patient Portal and [employer] Apps Indication:BMI 35.0-35.9,adult Start: 1 Instruction Type:Patient Education Patient Instructions Indication:BMI 35.0-35.9,adult Start: 1 Instruction Type:Provider Instructions for Treatment How to Access Health Information Online using Patient Portal and [employer] Apps Indication:BMI 35.0-35.9,adult Start: Instruction Type:Patient Education How to Access Health Information Online using Patient Portal and [employer] Apps Indication:Non-smoker Start:13-May-2020 Instruction Type:Patient Education Patient Instructions Indication:Non-smoker Start:13-May-2020 Instruction Type:Provider Instructions for Treatment How to Access Health Information Online using Patient Portal and [employer] Apps Indication:Non-smoker Start: 0 Instruction Type:Patient Education Patient Instructions Indication:Non-smoker Start: 0 Instruction Type:Provider Instructions for Treatment Patient Instructions Indication:Non-smoker Start: 0 Instruction Type:Provider Instructions for Treatment How to Access Health Information Online using Patient Portal and [employer] Apps Indication:Non-smoker Start: 0 Instruction Type:Patient Education How to access health information online Indication:Non-smoker Start:06-Jun-2016 Instruction Type:Patient Education How to access health information online - Detail Indication:Non-smoker Start:06-Jun-2016 Instruction Type:Patient Education Patient Instructions Indication:Non-smoker Start:06-Jun-2016 Instruction Type:Provider Instructions for Treatment Patient Instructions Indication:History of epilepsy Start:05-Apr-2016 Instruction Type:Provider Instructions for Treatment Patient Instructions Indication:Attention deficit disorder Start: 4 Instruction Type:Provider Instructions for Treatment Patient Instructions Indication:Hypercholesteremi a Start: 3 Instruction Type:Provider Instructions for Treatment Patient Instructions Indication:Cerebrovascular disease, unspecified Start: 3 Instruction Type:Provider Instructions for Treatment Patient Instructions Indication:Dysthymic Start: 2 Instruction Type:Provider Instructions for Treatment [facility]; [facility] Work Phone: Family History No Family History Records FoundUnknown Family Member Name Dates Details Father Comments:Type II diabetes in sulin dependant, HTN, hyperlipidemia, hx. CABGx1 Status:Active First Degree Relatives Comments:paternal (family of 10) Status:Active Mother Comments:Type II diabetes or al medications, HTN, hyperlipidemia hx. CABGx2, heart disease, hx. NE, CVA, MRSA carrier, depression Status:Active Unknown Family Member Name Dates Details Father Comments:Type II diabetes in sulin dependant, HTN, hyperlipidemia, hx. CABGx1 Status:Active First Degree Relatives Comments:paternal (family of 10) Status:Active Mother Comments:Type II diabetes or al medications, HTN, hyperlipidemia hx. CABGx2, heart disease, hx. [place], CVA, MRSA carrier, depression Status:Active Unknown Family Member Name Dates Details Father Comments:Type II diabetes in sulin dependant, HTN, hyperlipidemia, hx. CABGx1 Status:Active First Degree Relatives Comments:paternal (family of 10) Status:Active Mother Comments:Type II diabetes or al medications, HTN, hyperlipidemia hx. CABGx2, heart disease, hx. NE, CVA, MRSA carrier, depression Status:Active Unknown Family Member Name Dates Details Father Comments:Type II diabetes in sulin dependant, HTN, hyperlipidemia, hx. CABGx1 Status:Active First Degree Relatives Comments:paternal (family of 10) Status:Active Mother Comments:Type II diabetes or al medications, HTN, hyperlipidemia hx. CABGx2, heart disease, hx. NE, CVA, MRSA carrier, depression Status:Active Unknown Family Member Name Dates Details Father Comments:Type II diabetes in sulin dependant, HTN, hyperlipidemia, hx. CABGx1 Status:Active First Degree Relatives Comments:paternal (family of 10) Status:Active Mother Comments:Type II diabetes or al medications, HTN, hyperlipidemia hx. CABGx2, heart disease, hx. NE, CVA, MRSA carrier, depression Status:Active Unknown Family Member Name Dates Details Father Comments:Type II diabetes in sulin dependant, HTN, hyperlipidemia, hx. CABGx1 Status:Active First Degree Relatives Comments:paternal (family of 10) Status:Active Mother Comments:Type II diabetes or al medications, HTN, hyperlipidemia hx. CABGx2, heart disease, hx. NE, CVA, MRSA carrier, depression Status:Active Unknown Family Member Name Dates Details Father Comments:Type II diabetes in sulin dependant, HTN, hyperlipidemia, hx. CABGx1 Status:Active First Degree Relatives Comments:paternal (family of 10) Status:Active Mother Comments:Type II diabetes or al medications, HTN, hyperlipidemia hx. CABGx2, heart disease, hx. NE, CVA, MRSA carrier, depression Status:Active Unknown Family Member Name Dates Details Father Comments:Type II diabetes in sulin dependant, HTN, hyperlipidemia, hx. CABGx1 Status:Active First Degree Relatives Comments:paternal (family of 10) Status:Active Mother Comments:Type II diabetes or al medications, HTN, hyperlipidemia hx. CABGx2, heart disease, hx. NE, CVA, MRSA carrier, depression Status:Active Unknown Family Member Name Dates Details Father Comments:Type II diabetes in sulin dependant, HTN, hyperlipidemia, hx. CABGx1 Status:Active First Degree Relatives Comments:paternal (family of 10) Status:Active Mother Comments:Type II diabetes or al medications, HTN, hyperlipidemia hx. CABGx2, heart disease, hx. NE, CVA, MRSA carrier, depression Status:Active Unknown Family Member Name Dates Details Father Comments:Type II diabetes in sulin dependant, HTN, hyperlipidemia, hx. CABGx1 Status:Active First Degree Relatives Comments:paternal (family of 10) Status:Active Mother Comments:Type II diabetes or al medications, HTN, hyperlipidemia hx. CABGx2, heart disease, hx. NE, CVA, MRSA carrier, depression Status:Active Instructions Name Dates Details Patient Instructions Indication:Non-smoker Start:15-Apr-2020 Instruction Type:Provider Instructions for Treatment How to Access Health Informa tion Online using Patient Portal and [employer] Apps Indication:Non-smoker Start:15-Apr-2020 Instruction Type:Patient Education How to access health informa tion online Indication:Non-smoker Start:06-Jun-2016 Instruction Type:Patient Education How to access health informa tion online - Detail Indication:Non-smoker Start:06-Jun-2016 Instruction Type:Patient Education Patient Instructions Indication:Non-smoker Start:06-Jun-2016 Instruction Type:Provider Instructions for Treatment Patient Instructions Indication:History of epilepsy Start:05-Apr-2016 Instruction Type:Provider Instructions for Treatment Patient Instructions Indication:Attention deficit disorder Start:25-Dec-2013 Instruction Type:Provider Instructions for Treatment Patient Instructions Indication:Hypercholesteremia Start:26-Dec-2012 Instruction Type:Provider Instructions for Treatment Patient Instructions Indication:Cerebrovascular disease, unspecified Start:30-Jun-2012 Instruction Type:Provider Instructions for Treatment Patient Instructions Indication:Dysthymic Start:14-Apr-2012 Instruction Type:Provider Instructions for Treatment Name Dates Details How to Access Health Informa tion Online using Patient Portal and [employer] Apps Indication:Non-smoker Start:05-May-2020 Instruction Type:Patient Education Patient Instructions Indication:Non-smoker Start:05-May-2020 Instruction Type:Provider Instructions for Treatment Patient Instructions Indication:Non-smoker Start:15-Apr-2020 Instruction Type:Provider Instructions for Treatment How to Access Health Informa tion Online using Patient Portal and [employer] Apps Indication:Non-smoker Start:15-Apr-2020 Instruction Type:Patient Education How to access health informa tion online Indication:Non-smoker Start:06-Jun-2016 Instruction Type:Patient Education How to access health informa tion online - Detail Indication:Non-smoker Start:06-Jun-2016 Instruction Type:Patient Education Patient Instructions Indication:Non-smoker Start:06-Jun-2016 Instruction Type:Provider Instructions for Treatment Patient Instructions Indication:History of epilepsy Start:05-Apr-2016 Instruction Type:Provider Instructions for Treatment Patient Instructions Indication:Attention deficit disorder Start:25-Dec-2013 Instruction Type:Provider Instructions for Treatment Patient Instructions Indication:Hypercholesteremia Start:26-Dec-2012 Instruction Type:Provider Instructions for Treatment Patient Instructions Indication:Cerebrovascular disease, unspecified Start:30-Jun-2012 Instruction Type:Provider Instructions for Treatment Patient Instructions Indication:Dysthymic Start:14-Apr-2012 Instruction Type:Provider Instructions for Treatment Name Dates Details How to Access Health Informa tion Online using Patient Portal and [employer] Apps Indication:Non-smoker Start:05-May-2020 Instruction Type:Patient Education Patient Instructions Indication:Non-smoker Start:05-May-2020 Instruction Type:Provider Instructions for Treatment Patient Instructions Indication:Non-smoker Start:15-Apr-2020 Instruction Type:Provider Instructions for Treatment How to Access Health Informa tion Online using Patient Portal and [employer] Apps Indication:Non-smoker Start:15-Apr-2020 Instruction Type:Patient Education How to access health informa tion online Indication:Non-smoker Start:06-Jun-2016 Instruction Type:Patient Education How to access health informa tion online - Detail Indication:Non-smoker Start:06-Jun-2016 Instruction Type:Patient Education Patient Instructions Indication:Non-smoker Start:06-Jun-2016 Instruction Type:Provider Instructions for Treatment Patient Instructions Indication:History of epilepsy Start:05-Apr-2016 Instruction Type:Provider Instructions for Treatment Patient Instructions Indication:Attention deficit disorder Start:25-Dec-2013 Instruction Type:Provider Instructions for Treatment Patient Instructions Indication:Hypercholesteremia Start:26-Dec-2012 Instruction Type:Provider Instructions for Treatment Patient Instructions Indication:Cerebrovascular disease, unspecified Start:30-Jun-2012 Instruction Type:Provider Instructions for Treatment Patient Instructions Indication:Dysthymic Start:14-Apr-2012 Instruction Type:Provider Instructions for Treatment Name Dates Details How to Access Health Informa tion Online using Patient Portal and [employer] Apps Indication:Non-smoker Start:05-May-2020 Instruction Type:Patient Education Patient Instructions Indication:Non-smoker Start:05-May-2020 Instruction Type:Provider Instructions for Treatment Patient Instructions Indication:Non-smoker Start:15-Apr-2020 Instruction Type:Provider Instructions for Treatment How to Access Health Informa tion Online using Patient Portal and [employer] Apps Indication:Non-smoker Start:15-Apr-2020 Instruction Type:Patient Education How to access health informa tion online Indication:Non-smoker Start:06-Jun-2016 Instruction Type:Patient Education How to access health informa tion online - Detail Indication:Non-smoker Start:06-Jun-2016 Instruction Type:Patient Education Patient Instructions Indication:Non-smoker Start:06-Jun-2016 Instruction Type:Provider Instructions for Treatment Patient Instructions Indication:History of epilepsy Start:05-Apr-2016 Instruction Type:Provider Instructions for Treatment Patient Instructions Indication:Attention deficit disorder Start:25-Dec-2013 Instruction Type:Provider Instructions for Treatment Patient Instructions Indication:Hypercholesteremia Start:26-Dec-2012 Instruction Type:Provider Instructions for Treatment Patient Instructions Indication:Cerebrovascular disease, unspecified Start:30-Jun-2012 Instruction Type:Provider Instructions for Treatment Patient Instructions Indication:Dysthymic Start:14-Apr-2012 Instruction Type:Provider Instructions for Treatment Name Dates Details How to Access Health Informa tion Online using Patient Portal and [employer] Apps Indication:Non-smoker Start:13-May-2020 Instruction Type:Patient Education Patient Instructions Indication:Non-smoker Start:13-May-2020 Instruction Type:Provider Instructions for Treatment How to Access Health Informa tion Online using Patient Portal and [employer] Apps Indication:Non-smoker Start:05-May-2020 Instruction Type:Patient Education Patient Instructions Indication:Non-smoker Start:05-May-2020 Instruction Type:Provider Instructions for Treatment Patient Instructions Indication:Non-smoker Start:15-Apr-2020 Instruction Type:Provider Instructions for Treatment How to Access Health Informa tion Online using Patient Portal and [employer] Apps Indication:Non-smoker Start:15-Apr-2020 Instruction Type:Patient Education How to access health informa tion online Indication:Non-smoker Start:06-Jun-2016 Instruction Type:Patient Education How to access health informa tion online - Detail Indication:Non-smoker Start:06-Jun-2016 Instruction Type:Patient Education Patient Instructions Indication:Non-smoker Start:06-Jun-2016 Instruction Type:Provider Instructions for Treatment Patient Instructions Indication:History of epilepsy Start:05-Apr-2016 Instruction Type:Provider Instructions for Treatment Patient Instructions Indication:Attention deficit disorder Start:25-Dec-2013 Instruction Type:Provider Instructions for Treatment Patient Instructions Indication:Hypercholesteremia Start:26-Dec-2012 Instruction Type:Provider Instructions for Treatment Patient Instructions Indication:Cerebrovascular disease, unspecified Start:30-Jun-2012 Instruction Type:Provider Instructions for Treatment Patient Instructions Indication:Dysthymic Start:14-Apr-2012 Instruction Type:Provider Instructions for Treatment Name Dates Details How to Access Health Informa tion Online using Patient Portal and [employer] Apps Indication:Non-smoker Start:05-May-2020 Instruction Type:Patient Education Patient Instructions Indication:Non-smoker Start:05-May-2020 Instruction Type:Provider Instructions for Treatment Patient Instructions Indication:Non-smoker Start:15-Apr-2020 Instruction Type:Provider Instructions for Treatment How to Access Health Informa tion Online using Patient Portal and [employer] Apps Indication:Non-smoker Start:15-Apr-2020 Instruction Type:Patient Education How to access health informa tion online Indication:Non-smoker Start:06-Jun-2016 Instruction Type:Patient Education How to access health informa tion online - Detail Indication:Non-smoker Start:06-Jun-2016 Instruction Type:Patient Education Patient Instructions Indication:Non-smoker Start:06-Jun-2016 Instruction Type:Provider Instructions for Treatment Patient Instructions Indication:History of epilepsy Start:05-Apr-2016 Instruction Type:Provider Instructions for Treatment Patient Instructions Indication:Attention deficit disorder Start:25-Dec-2013 Instruction Type:Provider Instructions for Treatment Patient Instructions Indication:Hypercholesteremia Start:26-Dec-2012 Instruction Type:Provider Instructions for Treatment Patient Instructions Indication:Cerebrovascular disease, unspecified Start:30-Jun-2012 Instruction Type:Provider Instructions for Treatment Patient Instructions Indication:Dysthymic Start:14-Apr-2012 Instruction Type:Provider Instructions for Treatment Summary Purpose Advance Directives No Advanced Directives Records Found Additional Source Comments (unrecognized sect ion and content) No Status Records Found INFORMATION SOURCE (unrecogn ized section and content) DATE CREATED AUTHOR 12/15/2024 [facility] FOR RECORDS PERTAINING TO PATIENTS WHO ARE OR HAVE BEEN ENROLLED IN A CHEMICAL DEPENDENCY/SUBSTANCEABUSE PROGRAM, SOME INFORMATION MAY BE OMITTED. This clinical summary was aggregated from multiple sources. Caution should be exercised in using it in the provision of clinical care. This summary normalizes information from multiple sources, and as a consequence, information in this document may materially change the coding, format and clinical context of patient data. In addition, data may be omitted in some cases. CLINICAL DECISIONS SHOULD BE BASED ON THE PRIMARY CLINICAL RECORDS. [facility]. provides no warranty or guarantee of the accuracy or completeness of information in this document.
--- NOTE | 2025-01-04 09:38 | CA.SCORE ---
Calcium Scoring Date of Study:: 01/01/25 Indications Indications: Essential hypertension Coronary Calcium Scoring: High-resolution Computed Tomographic imaging of the chest was performed on [01/01/2025], with particular attention paid to the coronary arteries. Images from the examination were analyzed for the presence and extent of coronary artery calcification , using coronary calcium quantification software. The patient tolerated the procedure well and there were no complications. The results of the coronary calcification analysis are provided below. Findings Coronary Artery Left Main (LM): 0 Left Anterior Descending (LAD): 15 Left Circumflex (LCX): 59.4 Right Coronary Artery (RCA): 3.38 Total Agatston Score: 77.78 Percentile Rankinth to 75th percentile Calcium Scoring Interpretation: Different methods to categorize the overall amount of coronary plaque. Overall amount CAC SIS Visual of coronary plaque P1 Mild -100 <2 1-2 vessels with mild amount of plaque P2 Moderate 101-300 3-4 1-2 vessels with moderate amount, 3 vessels with mild amount of plaque P3 Severe 301-999 5-7 3 vessels with moderate amount, 1 vessel with severe amount of plaque P4 Extensive >1000 >8 2-3 vessels with severe amount of plaque Calcium Score: Mild: 1-2 vessels w/mild amount of plaque Conclusion: Mild atherosclerotic plaquing in 2 vessels
== END | disposition home or self-care (01) ==
LOC: CT 06:45
PROVIDERS: PCP Internal Medicine; Referring Provider Internal Medicine; Visit Provider Internal Medicine
DX: I10 Essential (primary) hypertension (principal)
CPT/HCPCS: 75571; 76380